=== PATIENT | female | born 1955 | race Caucasian/White ===

== ENCOUNTER 2022-12-28 08:23 | Outpatient (OUT) | payer MEDICARE, OTHER, SELFPAY ==
--- NOTE | 2022-12-28 08:51 | MM_ITS ---
Patient: DARIEN HOWARD Exam Date: 12/28/2022 : 1955 Gender:F Ordering : DR Sneha Esqueda M.D. Admission #: [id number] Family : Order #: [id number] CLICK HERE TO VIEW EXAM RADIOLOGY REPORT PROCEDURE: MM TOMOSYNTHESIS SCREENING BI COMPARISON: MG MAMM SCREEN 3D JHONNY CAD, 12/09/2021. MG MAMM SCREEN 3D JHONNY CAD, 11/29/2020. MG MAMM SCREEN JHONNY W CAD, 11/14/2019. MG MAMM JHONNY SCRN W CAD DIG, 06/10/2013. INDICATIONS: Screening Calculator Name NCI Breast Cancer Risk Assessment Tool 5 Year Breast Cancer Risk 1.20% Lifetime Breast Cancer Risk 3.90% Personal Breast Cancer No Personal Ovarian Cancer No Treatments None Family Cancers Aunt-maternal with breast cancer at age ~55; Aunt-maternal with breast cancer at age ~75. LOCATION: [facility] BREAST COMPOSITION: Heterogeneously dense,which may obscure small masses. FINDINGS: DIAGNOSTIC CATEGORY 2--BENIGN FINDING: RIGHT BREAST: No significant suspicious finding. Scattered benign-appearing calcifications are present. No significant change has occurred. LEFT BREAST: No significant suspicious finding. Scattered benign-appearing calcifications are present. No significant change has occurred. RECOMMENDATIONS: ROUTINE MAMMOGRAM AND CLINICAL EVALUATION IN 12 MONTHS. PLEASE NOTE: A NORMAL MAMMOGRAM DOES NOT EXCLUDE THE POSSIBILITY OF BREAST CANCER. A CLINICALLY SUSPICIOUS PALPABLE LUMP SHOULD BE BIOPSIED. Dictated by: Govind Talbert M.D. on 12/28/2022 at 14:27 Approved by: Govind Talbert M.D. on 12/28/2022 at 14:29
[2022-12-28 09:03] LABS: Basophils Percent Auto 0.6 % (0.2-2.0); Eosinophils Absolute Auto 0.3 10^3/uL (0.0-0.7); Eosinophils Percent Auto 7.2 % (0.9-7.0); Hematocrit 43.6 % (36.0-48.0); Hemoglobin 14.4 g/dL (12.0-16.0); Lymphocytes Absolute Auto 1.3 10^3/uL (1.2-3.8); Lymphocytes Percent Auto 36.5 % (20.5-60.0); Mean Corpuscular Hemoglobin 31.6 pg (26.7-34.0); Mean Corpuscular Volume 95.6 fL (81.0-99.0); Monocytes Absolute Auto 0.3 10^3/uL (0.3-0.8); Monocytes Percent Auto 8.3 % (1.7-12.0); Neutrophils Absolute Auto 1.7 10^3/uL (1.4-6.5); Neutrophils Percent Auto 47.4 % (43.0-75.0); Platelet Count 173 10^3/uL (150-450); Red Blood Count 4.56 10^6/uL (4.20-5.40); Red Cell Distribution Width 12.5 % (11.0-15.0); White Blood Count 3.5 10^3/uL (4.0-11.0)
[2022-12-28 09:07] LABS: Estimated Average Glucose 103 mg/dL; Glycohemoglobin A1C 5.2 % (4.5-6.2)
[2022-12-28 09:18] LABS: Alanine Aminotransferase 39 U/L (14-59); Albumin Globulin Ratio 1.2; Albumin Level 3.8 g/dL (3.4-5.0); Alkaline Phosphatase 47 U/L (46-116); Anion Gap 12.1; Aspartate Amino Transferase 23 U/L (15-37); BUN Creatinine Ratio 29.3; Calcium 9.1 mg/dL (8.5-10.1); Carbon Dioxide 29.2 mmol/L (21.0-32.0); Chloride 102 mmol/L (98-107); Cholesterol 204 mg/dL (<=200); Estimated GFR (African America >60 (>=60); Estimated GFR (Non-African Ame >60 (>=60); Globulin 3.2 g/dL; Glucose 97 mg/dL (74-106); HDL Cholesterol 101 mg/dL (40-60); Potassium 4.3 mmol/L (3.5-5.1); Sodium 139 mmol/L (136-145); Thyroid Stimulating Hormone 1.362 uIU/mL (0.358-3.740); Triglycerides 31 mg/dL (<=150); VLDL CHOLESTEROL 6.2 mg/dL
== END 2022-12-28 08:24 | disposition home or self-care (01) ==
LOC: MAMMO 08:30
PROVIDERS: PCP Family Medicine; Visit Provider Family Medicine
DX: Z00.00 Encounter for general adult medical examination without abnormal findings (principal); Z12.31 Encounter for screening mammogram for malignant neoplasm of breast; I10 Essential (primary) hypertension; E03.8 Other specified hypothyroidism; D72.819 Decreased white blood cell count, unspecified; Z80.3 Family history of malignant neoplasm of breast
CPT/HCPCS: 36415; 77063; 77067; 80053; 80061; 83036; 84443; 85025

== ENCOUNTER 2023-09-25 11:32 | Outpatient (OUT) | payer MEDICARE, OTHER, SELFPAY ==
--- NOTE | 2023-09-25 | CONS_ITS ---
PROCEDURE DATE: 09/25/2023 PROCEDURE: Right first MC joint injection. 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 SOLUTION USED FOR INJECTION: 2 mL of 2% lidocaine, 2 mL of 0.25% Marcaine and Kenalog 20 mg in total of 5 mL, and 2 mL used for the injection into the joint space. IMMEDIATE COMPLICATION: None. PROCEDURE: After informed consent was obtained from the patient, placed in the sitting position, skin overlying the area was prepped with alcohol. A 25 gauge, 1 ?? needle was inserted over the right first MC joint. Needle tip was advanced until the joint space was encountered. No indication of intravascular or intraneural needle tip placement. 2 mL of solution was injected. Needle was removed. Patient reports a dramatic reduction in pain symptoms post procedurally. She reports that she can now open up a bottle of water without difficulty. ROYAL
== END 2023-09-25 11:33 | disposition home or self-care (01) ==
LOC: PM 11:32
PROVIDERS: PCP Family Medicine; Visit Provider Anesthesiology Pain Medicine
DX: M19.031 Primary osteoarthritis, right wrist (principal)
CPT/HCPCS: 20600

== ENCOUNTER 2024-01-01 06:37 | Outpatient (OUT) | payer MEDICARE, OTHER, SELFPAY ==
--- OUTSIDE RECORDS SUMMARY | 2024-01-01 06:39 | XMS_ITS | CCD ---
Author Organization [facility] Care Team Providers Care Drafter Refrigeration Name Role Phone COY, DR SNEHA Soto Admitting Unavailable COY, DR SNEHA Soto Attending Unavailable COY, DR SNEHA Soto Primary Care Unavailable MORE, DR GOVIND Coleman Consulting Unavailable ESQUEDA, DR SNEHA Soto Consulting Unavailable STOCKTON ., DR JAZZMINE Fleming Admitting Unavailable STOCKTON ., DR JAZZMINE Fleming Attending Unavailable COY, DR SNEHA Soto Primary Care Unavailable STOCKTON ., DR JAZZMINE Felming Consulting Unavailable LAKSHMIPATHY ., NARNELIDA Admitting Brandie vailable LAKSHMIPATHY ., GURINDER Attending Brandie varosamaria ESQUEDA, DR SNEHA Soto Primary Care Unavailable LAKSHMIPATHY ., GURINDER Consulting Brandie vailable COY, DR SNEHA Soto Admitting Unavailable ESQUEDA, DR SNEHA Soto Attending Unavailable COY, DR SNEHA Soto Primary Care Unavailable COY, DR SNEHA Soto Consulting Unavailable COY, DR SNEHA Soto Admitting Unavailable ESQUEDA, DR SNEHA Soto Attending Unavailable ESQUEDA, DR SNEHA Soto Primary Care Unavailable COY, DR SNEHA Soto Consulting Unavailable Coy, Sneha Unavailable Allergies Allergy Classification Reported Allergen(s) Allergy Type Date of Onset Reaction(s) Facility (5 sources) Alendronate Drug Allergy Unknown Perpetu Other Medications Current Medications Medication Drug Class(es) Dates Sig (Normalized) Sig (Original) amLODIPine 5 mg / benazepril hydrochloride 10 mg oral capsule (6 sources) Dihydropyridine Calcium Channel Patrizia, Angiotensin Converting Enzyme Inhibitor Start: 07-25-2023 take 1 capsule by mouth once daily Amlodipine-Benaz epril Active 1 CAP PO Daily July 25, 2023 12:00am Start: 12-30-2021 take 1 capsule by [facility] every twenty-four hours amLODIPine Besy-Benazepril HCl 5-10 MG 1 capsule Orally daily for 90 days Dec, Active amLODIPine Besy-Benazepril HCl 5-10MG (2 sources) Start: 12-30-2021 take 5-10 mg by mouth once daily amLODIPine Besy-Benazepril HCl 5-10MG amLODIPine Besy-Benazepril HCl 5-10MG, 1 (one) Capsule daily # 90, 12/30/2021, Ref. x3. Active Oral daily for 0 *Pick strength-form from [employer] for eRX* Dec, Active Calcium (5 sources) Phosphate Binder, Calcium Start: 07-09-2014 Calcium 600 600MG Calcium 600 600MG, # 0.00, 07/09/2014, No Refill. Active for 0 *Pick strength-form from [employer] for eRX* Jul, Active Estriol-Estradiol (5 sources) Estriol-Estradio l Active Multivitamins (5 sources) Start: 07-09-2014 Multivitamins Multivitamins , # 0.00, 07/09/2014, No Refill. Active for 0 *Reorder from [employer] for eRx and Interaction Alerts* Jul, Active VITAMIN D CALCIUM - this medication is not being screened (5 sources) Start: 07-09-2014 VITAMIN D CALCIUM - this medication is not being screened VITAMIN D CALCIUM - this medication is not being screened( ) Active -Hx Entry for 0 *Reorder from [employer] for eRx and Interaction Alerts* Jul, Active Problems Active Problems Problem Classification Problem Date Documented Date Episodic/Chronic Diseases of white blood cells (13 sources) Decreased white blood cell count, unspecified; Translations: [Leukopenia] Onset: 03-17-2022 Chronic Essential hypertension (16 sources) Essential (primary) hypertension; Translations: [Essential hypertension] Onset: 01-03-2022 Chronic Osteoarthritis (4 sources) Primary osteoarthritis, right hand; Translations: [PRIMARY OSTEOARTHRITIS RIGHT HAND] Onset: 08-24-2022 Chronic Other endocrine disorders (8 sources) Disorder of endocrine system; Translations: [Endocrine disorder, unspecified] 07-25-2023 Episodic Other nervous system disorders (4 sources) Other specified mononeuropathies; Translations: [OTHER SPECIFIED MONONEUROPATHIES] Onset: 02-07-2022 Chronic Other nervous system disorders (1 source) Carpal tunnel syndrome, unspecified upper limb; Translations: [CARPAL TUNNEL SYND UNS UPPER LIMB] Onset: 02-09-2022 Chronic Other screening for suspected conditions (not mental disorders or infectious disease) (5 sources) Encounter for screening mammogram for malignant neoplasm of breast; Translations: [Encounter for screening for malignant neoplasm of colon] Onset: 12-09-2021 Episodic Other upper respiratory disease (5 sources) Congestion of nasal sinus; Translations: [Nasal congestion] Episodic Other upper respiratory infections (2 sources) Viral upper respiratory tract infection; Translations: [Acute upper respiratory infection, unspecified] 10-06-2023 Episodic Thyroid disorders (10 sources) Other specified hypothyroidism; Translations: [Hypothyroidism] Onset: 03-20-2022 Chronic Past or Other Problems Problem Classification Problem Date Documented Da te Episodic/Chronic Other endocrine disorders (1 source) Endocrine disorder, unspecified; Translations: [ENDOCRINE DISORDER UNSPECIFIED] Onset: 03-20-2022 Episodic Residual codes; unclassified (1 source) Family history of malignant neoplasm of breast; Translations: [FAMILY HX MALIG NEOPLASM OF BREAST] Onset: 12-12-2021 Episodic Results Test Name Value Interpretation Reference Range Facility Physician Referralon 024 Physician Referral [id number] 1 [id number] Normal [facility] ESTRONEon 03-22-2022 Estrone, Serum <6 Normal 0-125 [facility] Comment on above: Result Comment: Rang e Adult (Premenopausal) 27 - 231 Menstrual Cycle (1-10 days) 19 - 149 Menstrual Cycle (11-20 days) 32 - 176 Menstrual Cycle (21-30 days) 37 - 200 Adult (Postmenopausal) 0 - 125 Performed By: #### E STRONE #### [facility] [address] [place] [address] Dr. Josse Gant TESTOSTERONE, FREE,DIRECT, T OTALon 03-22-2022 Free Testosterone(Direct) 0.5 pg/mL Normal 0.0-4.2 [facility] Comment on above: Result Comment: Perf ormed at: BN Performed By: #### T ESTFRD #### [facility] [address] [address] [address] Josse Gant Testosterone [Mass/Vol] 60 ng/dL Normal 3-67 [facility] Comment on above: Result Comment: Perf ormed at: CB Performed By: #### T ESTFRD #### [facility] [address] [place] [address] Dr. Josse Gant VIT D 1 25 DIHYDROXYon 03-20 Calcitriol(1,25 di-OH Vit D) 55.0 pg/mL Normal 24.8-81.5 [facility] Comment on above: Performed By: #### V [id number] #### [facility] [address] [place] [address] Dr. Josse Gant CORTISOLon 03-18-2022 Cortisol 10.6 ug/dL Normal [facility] Comment on above: Result Comment: Patricio isol AM 6.2 - 19.4 Cortisol PM 2.3 - 11.9 Performed By: #### T SH #### [facility] [address] [place] [address] Dr. Josse Gant DHEA-SULFATEon 03-18-2022 DHEA-Sulfate 32.3 ug/dL Normal 20.4-186.6 [facility] Comment on above: Performed By: #### T SH #### [facility] [address] [place] [address] Dr. Josse Gant ESTRADIOLon 03-18-2022 Estradiol <5.0 Normal [facility] Comment on above: Result Comment: Adul t Female: Follicular phase 12.5 - 166.0 Ovulation phase 85.8 - 498.0 Luteal phase 43.8 - 211.0 Postmenopausal <6.0 - 54.7 1st trimester 215.0 - >4300.0 Kim ECLIA methodology Performed By: #### E STRADI #### [facility] [address] [place] [address] Dr. Josse Gant PROGESTERONEon 03-18-2022 Progesterone 0.3 ng/mL Normal [facility] Comment on above: Result Comment: Foll icular phase 0.1 - 0.9 Luteal phase 1.8 - 23.9 Ovulation phase 0.1 - 12.0 First trimester 11.0 - 44.3 Second trimester 25.4 - 83.3 Third trimester 58.7 - 214.0 Postmenopausal 0.0 - 0.1 Performed By: #### T SH #### [facility] [address] [place] [address] Dr. Josse Gant SEX HORMONE-BINDING GLOBULIN on 03-18-2022 Sex Horm Binding Glob, Serum 107.0 nmol/L Normal 17.3-125.0 [facility] Comment on above: Performed By: #### S EXHBG #### [facility] [address] [place] [address] Dr. Josse Gant CBC AUTO DIFFon 03-17-2022 BASO # 0.0 103/ul Normal 0.0-0.1 [facility] Comment on above: Performed By: #### C BC #### [facility] [address] [place] [address] Dr. Josse Gant Basophils/100 WBC (Bld) 0.5 % Normal 0.2-2.0 [facility] Comment on above: Performed By: #### C BC #### [facility] [address] [place] [address] Dr. Josse Gant EO # 0.2 103/ul Normal 0.0-0.7 [facility] Comment on above: Performed By: #### C BC #### [facility] [address] [place] [address] Dr. Josse Gant Eosinophils/100 WBC (Bld) 5.7 % Normal 0.9-7.0 [facility] Comment on above: Performed By: #### C BC #### [facility] [address] [place] [address] Dr. Josse Gant Erythrocyte distribution width (RBC) [Ratio] 12.7 % Normal 11.0-15.0 [facility] Comment on above: Performed By: #### C BC #### [facility] [address] [place] [address] Dr. Josse Gnat Hematocrit (Bld) [Volume fraction] 44.7 % Normal 36.0-48.0 [facility] Comment on above: Performed By: #### C BC #### [facility] [address] [place] [address] Dr. Josse Gant Hemoglobin (Bld) [Mass/Vol] 15.0 g/dL Normal 12.0-16.0 [facility] Comment on above: Performed By: #### C BC #### [facility] [address] [place] [address] Dr. Josse Gant IG # 0.00 10e3/ul Normal 0.00-0.03 [facility] Comment on above: Performed By: #### C BC #### [facility] [address] [place] [address] Dr. Josse Gant IG % 0.0 % Normal 0.0-0.5 [facility] Comment on above: Performed By: #### C BC #### [facility] [address] [place] [address] Dr. Josse Gant LYMPH # 1.1 103/ul Critically low 1.2-3.8 [facility] Comment on above: Performed By: #### C BC #### [facility] [address] [place] [address] Dr. Josse Gant Lymphocytes/100 WBC (Bld) 28.4 % Normal 20.5-60.0 [facility] Comment on above: Performed By: #### C BC #### [facility] [address] [place] [address] Dr. Josse Gant MANUAL DIFF REQ NO Normal [facility] Comment on above: Performed By: #### C BC #### [facility] [address] [place] [address] Dr. Josse Gant MCH (RBC) [Entitic mass] 31.8 pg Normal 26.7-34.0 [facility] Comment on above: Performed By: #### C BC #### [facility] [address] [place] [address] Dr. Josse Gant MCHC (RBC) [Mass/Vol] 33.6 g/dL Normal 29.9-35.2 [facility] Comment on above: Performed By: #### C BC #### [facility] [address] [place] [address] Dr. Josse Gant MCV (RBC) [Entitic vol] 94.9 fL Normal 81.0-99.0 [facility] Comment on above: Performed By: #### C BC #### [facility] [address] [place] [address] Dr. Josse Gant MONO # 0.3 103/ul Normal 0.3-0.8 [facility] Comment on above: Performed By: #### C BC #### [facility] [address] [place] [address] Dr. Josse Gant Monocytes/100 WBC (Bld) 8.8 % Normal 1.7-12.0 [facility] Comment on above: Performed By: #### C BC #### [facility] [address] [place] [address] Dr. Josse Gant NEUT # 2.2 103/ul Normal 1.4-6.5 [facility] Comment on above: Performed By: #### C BC #### [facility] [address] [place] [address] Dr. Josse Gant Neutrophils/100 WBC (Bld) 56.6 % Normal 43.0-75.0 [facility] Comment on above: Performed By: #### C BC #### [facility] [address] [place] [address] Dr. Josse Gant Platelet mean volume (Bld) [Entitic vol] 9.2 fL Critically low 9.5-13.5 [facility] Comment on above: Performed By: #### C BC #### [facility] [address] [place] [address] Dr. Josse Gant PLT 213 103/ul Normal 150-450 [facility] Comment on above: Performed By: #### C BC #### [facility] [address] [place] [address] Dr. Josse Gant RBC 4.71 106/ul Normal 4.20-5.40 [facility] Comment on above: Performed By: #### C BC #### [facility] [address] [place] [address] Dr. Josse Gant WBC 3.9 103/ul Critically low 4.0-11.0 [facility] Comment on above: Performed By: #### C BC #### [facility] [address] [place] [address] Dr. Josse Gant FREE T4on 03-17-2022 Free T4 [Mass/Vol] 0.90 ng/dL Normal 0.76-1.46 [facility] Comment on above: Performed By: #### T SH #### [facility] [address] [place] [address] Dr. Josse Gant TSHon 03-17-2022 TSH 1.332 uIU/mL Normal 0.358-3.740 [facility] Comment on above: Performed By: #### T SH #### [facility] [address] [place] [address] Dr. Josse Gant CBC AUTO DIFFon 01-03-2022 BASO # 0.0 103/ul Normal 0.0-0.1 [facility] Comment on above: Performed By: #### C BC #### [facility] [address] [place] [address] Dr. Josse Gant Basophils/100 WBC (Bld) 0.8 % Normal 0.2-2.0 [facility] Comment on above: Performed By: #### C BC #### [facility] [address] [place] [address] Dr. Josse Gant EO # 0.3 103/ul Normal 0.0-0.7 [facility] Comment on above: Performed By: #### C BC #### [facility] [address] [place] [address] Dr. Josse Gant Eosinophils/100 WBC (Bld) 7.3 % Critically high 0.9-7.0 [facility] Comment on above: Performed By: #### C BC #### [facility] [address] [place] [address] Dr. Josse Gant Erythrocyte distribution width (RBC) [Ratio] 12.6 % Normal 11.0-15.0 [facility] Comment on above: Performed By: #### C BC #### [facility] [address] [place] [address] Dr. Josse Gant Hematocrit (Bld) [Volume fraction] 45.3 % Normal 36.0-48.0 [facility] Comment on above: Performed By: #### C BC #### [facility] [address] [place] [address] Dr. Josse Gant Hemoglobin (Bld) [Mass/Vol] 14.7 g/dL Normal 12.0-16.0 [facility] Comment on above: Performed By: #### C BC #### [facility] [address] [place] [address] Dr. Josse Gant IG # 0.01 10e3/ul Normal 0.00-0.03 [facility] Comment on above: Performed By: #### C BC #### [facility] [address] [place] [address] Dr. Josse Gant IG % 0.3 % Normal 0.0-0.5 [facility] Comment on above: Performed By: #### C BC #### [facility] [address] [place] [address] Dr. Josse Gant LYMPH # 1.5 103/ul Normal 1.2-3.8 [facility] Comment on above: Performed By: #### C BC #### [facility] [address] [place] [address] Dr. Josse Gant Lymphocytes/100 WBC (Bld) 38.8 % Normal 20.5-60.0 [facility] Comment on above: Performed By: #### C BC #### [facility] [address] [place] [address] Dr. Josse Gant MANUAL DIFF REQ NO Normal [facility] Comment on above: Performed By: #### C BC #### [facility] [address] [place] [address] Dr. Josse Gant MCH (RBC) [Entitic mass] 30.8 pg Normal 26.7-34.0 [facility] Comment on above: Performed By: #### C BC #### [facility] [address] [place] [address] Dr. Josse Gant MCHC (RBC) [Mass/Vol] 32.5 g/dL Normal 29.9-35.2 [facility] Comment on above: Performed By: #### C BC #### [facility] [address] [address] [address] Josse Gant MCV (RBC) [Entitic vol] 95.0 fL Normal 81.0-99.0 [facility] Comment on above: Performed By: #### C BC #### [facility] [address] [address] [address] Josse Gant MONO # 0.4 103/ul Normal 0.3-0.8 [facility] Comment on above: Performed By: #### C BC #### [facility] [address] [place] [address] Dr. Josse Gant Monocytes/100 WBC (Bld) 9.4 % Normal 1.7-12.0 [facility] Comment on above: Performed By: #### C BC #### [facility] [address] [place] [address] Dr. Josse Gant NEUT # 1.7 103/ul Normal 1.4-6.5 [facility] Comment on above: Performed By: #### C BC #### [facility] [address] [place] [address] Dr. Josse Gant Neutrophils/100 WBC (Bld) 43.4 % Normal 43.0-75.0 [facility] Comment on above: Performed By: #### C BC #### [facility] [address] [place] [address] Dr. Josse Gant Platelet mean volume (Bld) [Entitic vol] 9.6 fL Normal 9.5-13.5 [facility] Comment on above: Performed By: #### C BC #### [facility] [address] [place] [address] Dr. Josse Gant PLT 190 103/ul Normal 150-450 [facility] Comment on above: Performed By: #### C BC #### [facility] [address] [place] [address] Dr. Josse Gant RBC 4.77 106/ul Normal 4.20-5.40 [facility] Comment on above: Performed By: #### C BC #### [facility] [address] [address] [address] Josse Gant WBC 3.8 103/ul Critically low 4.0-11.0 [facility] Comment on above: Performed By: #### C BC #### [facility] [address] [address] [address] Josse Gant LIPID PROFILEon 01-03-2022 CHOL-HDL RATIO NORM SEE BELOW Normal [facility] Comment on above: Result Comment: 3.3 - 4.4 LOW RISK 4.4 - 7.1 AVERAGE RISK 7.1 - 11.0 MODERATE RISK >11.0 HIGH RISK Performed By: #### L IPID, CMP #### [facility] [address] [address] [address] Josse Gant Cholesterol [Mass/Vol] 222 mg/dL Critically high <=200 [facility] Comment on above: Performed By: #### L IPID, CMP #### [facility] [address] [address] [address] Josse Gant Cholesterol in HDL [Mass/Vol] 91 mg/dL Critically high 40-60 [facility] Comment on above: Performed By: #### L IPID, CMP #### [facility] [address] [address] [address] Josse Gant Cholesterol in LDL [Mass/Vol] 115.4 mg/dL Normal [facility] Comment on above: Performed By: #### L IPID, CMP #### [facility] [address] [address] [address] Josse Gant Cholesterol.total/Ch olesterol in HDL [Mass ratio] 2.4 {ratio} Normal [facility] Comment on above: Performed By: #### L IPID, CMP #### [facility] [address] [address] [address] Josse Gant HDL NORMAL > or = 60 mg/dl - LO W CARDIOVASCULAR RISK <40 mg/dl - HIGH CARDIOVASCULAR RISK Normal [facility] Comment on above: Performed By: #### L IPID, CMP #### [facility] [address] [address] [address] Josse Gant LDL CALC NORMAL SEE BELOW Normal [facility] Comment on above: Result Comment: <100 mg/dl OPTIMAL 100 - 129 mg/dl NEAR OR ABOVE OPTIMAL 130 - 159 mg/dl BORDERLINE HIGH 160 - 189 mg/dl HIGH >190 mg/dl VERY HIGH Performed By: #### L IPID, CMP #### [facility] [address] [address] [address] Josse Gant Triglyceride [Mass/Vol] 78 mg/dL Normal <=150 [facility] Comment on above: Performed By: #### L IPID, CMP #### [facility] [address] [address] [address] Josse Gant VLDL CALC 15.6 mg/dL Normal [facility] Comment on above: Performed By: #### L IPID, CMP #### [facility] [address] [place] [address] Dr. Josse Gant PROF 14(COMP METB)on 022 Albumin [Mass/Vol] 3.9 g/dL Normal 3.4-5.0 [facility] Comment on above: Performed By: #### L IPID, CMP #### [facility] [address] [address] [address] Josse Gant Albumin/Globulin [Mass ratio] 1.3 {ratio} Normal [facility] Comment on above: Performed By: #### L IPID, CMP #### [facility] [address] [address] [address] oJsse Gant ALP [Catalytic activity/Vol] 53 U/L Normal 46-116 [facility] Comment on above: Performed By: #### L IPID, CMP #### [facility] [address] [address] [address] Josse Gant ALT [Catalytic activity/Vol] 39 U/L Normal 14-59 [facility] Comment on above: Performed By: #### L IPID, CMP #### [facility] [address] [address] [address] Josse Gant Anion gap [Moles/Vol] 11.2 mmol/L Normal [facility] Comment on above: Performed By: #### L IPID, CMP #### [facility] [address] [address] [address] Josse Gant AST [Catalytic activity/Vol] 24 U/L Normal 15-37 [facility] Comment on above: Performed By: #### L IPID, CMP #### [facility] [address] [place] [address] Dr. Josse Gant Bilirubin [Mass/Vol] 0.9 mg/dL Normal 0.2-1.0 [facility] Comment on above: Performed By: #### L IPID, CMP #### [facility] [address] [place] [address] Dr. Josse Gant Calcium [Mass/Vol] 8.8 mg/dL Normal 8.5-10.1 [facility] Comment on above: Performed By: #### L IPID, CMP #### [facility] [address] [place] [address] Dr. Josse Gant Chloride [Moles/Vol] 102 mmol/L Normal 98-107 [facility] Comment on above: Performed By: #### L IPID, CMP #### [facility] [address] [place] [address] Dr. Josse Gant CO2 [Moles/Vol] 32.4 mmol/L Critically high 21.0-32.0 [facility] Comment on above: Performed By: #### L IPID, CMP #### [facility] [address] [place] [address] Dr. Josse Gant Creatinine [Mass/Vol] 0.83 mg/dL Normal 0.55-1.02 [facility] Comment on above: Performed By: #### L IPID, CMP #### [facility] [address] [place] [address] Dr. Josse Gant EGFR-AF MOSOTHO >60 Normal >=60 [facility] Comment on above: Performed By: #### L IPID, CMP #### [facility] [address] [place] [address] Dr. Josse Gant EGFR-NON AF MOSOTHO >60 Normal >=60 [facility] Comment on above: Performed By: #### L IPID, CMP #### [facility] [address] [address] [address] Josse Gant Globulin (S) [Mass/Vol] 3.1 g/dL Normal [facility] Comment on above: Performed By: #### L IPID, CMP #### [facility] [address] [address] [address] Josse Gant Glucose [Mass/Vol] 103 mg/dL Normal 74-106 [facility] Comment on above: Performed By: #### L IPID, CMP #### [facility] [address] [place] [address] Dr. Josse Gant Potassium [Moles/Vol] 4.6 mmol/L Normal 3.5-5.1 [facility] Comment on above: Performed By: #### L IPID, CMP #### [facility] [address] [place] [address] Dr. Josse Gant Protein [Mass/Vol] 7.0 g/dL Normal 6.4-8.2 [facility] Comment on above: Performed By: #### L IPID, CMP #### [facility] [address] [place] [address] Dr. Josse Gant Sodium [Moles/Vol] 141 mmol/L Normal 136-145 [facility] Comment on above: Performed By: #### L IPID, CMP #### [facility] [address] [place] [address] Dr. Josse Gant Urea nitrogen [Mass/Vol] 22.0 mg/dL Critically high 7.0-18.0 [facility] Comment on above: Performed By: #### L IPID, CMP #### [facility] [address] [place] [address] Dr. Josse Gant Urea nitrogen/Creatinine [Mass ratio] 26.5 mg/mg Normal [facility] Comment on above: Performed By: #### L IPID, CMP #### [facility] [address] [place] [address] Dr. Josse Gant MG MAMM SCREEN 3D JHONNY CADon 08-05-2022 MG MAMM SCREEN 3D JHONNY CAD Patient: KORTNEY SALAZAR Exam Date: 12/09/2021 : 1955 Gender:F Ordering : DR SNEHA ESQUEDA M.D. Admission #: [id number] Family : Order #: [id number] CLICK HERE TO VIEW EXAM RADIOLOGY REPORT PROCEDURE: MAMMOGRAM SCREENING 3D BILATERAL CAD COMPARISON: MG MAMM SCREEN 3D JHONNY CAD, 11/29/2020. MG MAMM SCREEN JHONNY W CAD, 11/14/2019. INDICATIONS: Screening mammography Calculator Name NCI Breast Cancer Risk Assessment Tool 5 Year Breast Cancer Risk 1.20% Lifetime Breast Cancer Risk 4.00% Personal Breast Cancer No Personal Ovarian Cancer No Treatments None Family Cancers Aunt-maternal with breast cancer at age 55; Aunt-maternal with breast cancer at age 75. LOCATION: [facility] BREAST COMPOSITION: Heterogeneously dense,which may obscure small masses. FINDINGS: DIAGNOSTIC CATEGORY 2--BENIGN FINDING: RIGHT BREAST: No significant suspicious finding. Scattered benign-appearing calcifications are present. No significant change has occurred. LEFT BREAST: No significant suspicious finding. Scattered benign-appearing calcifications are present. No significant change has occurred. RECOMMENDATIONS: ROUTINE MAMMOGRAM AND CLINICAL EVALUATION IN 12 MONTHS. PLEASE NOTE: A NORMAL MAMMOGRAM DOES NOT EXCLUDE THE POSSIBILITY OF BREAST CANCER. A CLINICALLY SUSPICIOUS PALPABLE LUMP SHOULD BE BIOPSIED. Dictated by: Govind Talbert M.D. on 12/09/2021 at 12:55 Approved by: Govind Talbert M.D. on 12/09/2021 at 12:57 Normal [facility] CBC Without Differentialon 0 11-20-2020 Erythrocyte distribution width (RBC) [Ratio] 13.7 % Normal 11.9-15.3 [facility] Comment on above: Performed By: #### O UTREACH LIPID, OUTREACH CMP, CBCNOOUTREACH #### [facility] [address] [place] [address] [facility] Hematocrit (Bld) [Volume fraction] 43.6 % Normal 34.0-46.4 [facility] Comment on above: Performed By: #### O UTREACH LIPID, OUTREACH CMP, CBCNOOUTREACH #### [address] Hemoglobin (Bld) [Mass/Vol] 14.4 g/dL Normal 11.8-15.4 [facility] Comment on above: Performed By: #### O UTREACH LIPID, OUTREACH CMP, CBCNOOUTREACH #### [address] MCH (RBC) [Entitic mass] 31.5 pg Normal 24.7-34.3 [facility] Comment on above: Performed By: #### O UTREACH LIPID, OUTREACH CMP, CBCNOOUTREACH #### [address] MCV (RBC) [Entitic vol] 95.0 fL Normal 80-100 [facility] Comment on above: Performed By: #### O UTREACH LIPID, OUTREACH CMP, CBCNOOUTREACH #### [address] Mean Corpuscular HGB Conc 33.2 g/dL Normal 32.0-35.0 [facility] Comment on above: Performed By: #### O UTREACH LIPID, OUTREACH CMP, CBCNOOUTREACH #### [address] Platelet mean volume (Bld) [Entitic vol] 9.3 fL Normal 6.3-10.7 [facility] Comment on above: Result Comment: PERF ORMED BY: [place] [address] PATHOLOGIST [employer] RUIZ WEI M.D. Performed By: #### O UTREACH LIPID, OUTREACH CMP, CBCNOOUTREACH #### [address] Platelets (Bld) [#/Vol] 187 10*3/uL Normal 150-450 [facility] Comment on above: Performed By: #### O UTREACH LIPID, OUTREACH CMP, CBCNOOUTREACH #### [address] RBC (Bld) [#/Vol] 4.58 10*6/uL Normal 3.60-5.00 [facility] Comment on above: Performed By: #### O UTREACH LIPID, OUTREACH CMP, CBCNOOUTREACH #### [address] WBC (Bld) [#/Vol] 3.8 10*3/uL Normal 3.8-11.6 [facility] Comment on above: Performed By: #### O UTREACH LIPID, OUTREACH CMP, CBCNOOUTREACH #### [address] CMP Outreachon 11-20-2020 Albumin [Mass/Vol] 4.1 g/dL Normal 3.2-5.5 [facility] Comment on above: Performed By: #### O UTREACH LIPID, OUTREACH CMP, CBCNOOUTREACH #### [address] ALP [Catalytic activity/Vol] 37 U/L Normal 32-92 [facility] Comment on above: Performed By: #### O UTREACH LIPID, OUTREACH CMP, CBCNOOUTREACH #### [address] ALT [Catalytic activity/Vol] 27 U/L Normal 10-60 [facility] Comment on above: Performed By: #### O UTREACH LIPID, OUTREACH CMP, CBCNOOUTREACH #### [address] AST [Catalytic activity/Vol] 30 U/L Normal 10-42 [facility] Comment on above: Performed By: #### O UTREACH LIPID, OUTREACH CMP, CBCNOOUTREACH #### [address] Bilirubin [Mass/Vol] 1.4 mg/dL High 0.3-1.2 [facility] Comment on above: Result Comment: Samp les from patients who have taken Naproxen have shown spurious elevation in Total Bilirubin levels. A metabolite of Naproxen, O-desmethylnaproxen, has been shown to interfere with the Jendrassik-Grof method for measuring Total Bilirubin. Performed By: #### O UTREACH LIPID, OUTREACH CMP, CBCNOOUTREACH #### [facility] [address] Calcium [Mass/Vol] 9.4 mg/dL Normal 8.2-10.2 [facility] Comment on above: Performed By: #### O UTREACH LIPID, OUTREACH CMP, CBCNOOUTREACH #### [address] Chloride [Moles/Vol] 101 mmol/L Normal 95-114 [facility] Comment on above: Performed By: #### O UTREACH LIPID, OUTREACH CMP, CBCNOOUTREACH #### [address] CO2 [Moles/Vol] 28.0 mmol/L Normal 22.0-30.0 [facility] Comment on above: Performed By: #### O UTREACH LIPID, OUTREACH CMP, CBCNOOUTREACH #### [address] Creatinine [Mass/Vol] 0.85 mg/dL Normal 0.44-1.03 [facility] Comment on above: Performed By: #### O UTREACH LIPID, OUTREACH CMP, CBCNOOUTREACH #### [address] Estimated GFR ( Cristy > 60 [facility] Comment on above: Result Comment: GFR estimated reference range: According to KDOQI guidelines, <60 ml/min/1.73m2 is sufficient to diagnose a patient with chronic kidney disease. Performed By: #### O UTREACH LIPID, OUTREACH CMP, CBCNOOUTREACH #### [place] [address] [place] Estimated GFR (Non- Am > 60 [facility] Comment on above: Performed By: #### O UTREACH LIPID, OUTREACH CMP, CBCNOOUTREACH #### [place] [address] [place] Glucose [Mass/Vol] 92 mg/dL Normal 70-100 [facility] Comment on above: Result Comment: [facility] Glucose Reference Range is dependent on time and content of last meal. Glucose of more than 200 mg/dL in a nonstressed, ambulatory subject supports the diagnosis of Diabetes Mellitus. ADA recommended reference range Performed By: #### O UTREACH LIPID, OUTREACH CMP, CBCNOOUTREACH #### [facility] [address] [phone] [place] Potassium [Moles/Vol] 4.1 mmol/L Normal 3.5-5.1 [facility] Comment on above: Performed By: #### O UTREACH LIPID, OUTREACH CMP, CBCNOOUTREACH #### [facility] [address] [phone] [place] Protein [Mass/Vol] 6.6 g/dL Normal 6.1-7.9 [facility] Comment on above: Performed By: #### O UTREACH LIPID, OUTREACH CMP, CBCNOOUTREACH #### [facility] [address] [phone] [place] Sodium [Moles/Vol] 137 mmol/L Normal 136-146 [facility] Comment on above: Performed By: #### O UTREACH LIPID, OUTREACH CMP, CBCNOOUTREACH #### [facility] [address] [place], [place] [id number] [place] Urea nitrogen [Mass/Vol] 25 mg/dL High 9-23 [facility] Comment on above: Performed By: #### O UTREACH LIPID, OUTREACH CMP, CBCNOOUTREACH #### [facility] [address] [phone] [place] Lipid Profile Outreachon Cholesterol [Mass/Vol] 254 mg/dL High 140-200 [facility] Comment on above: Result Comment: Chol less than 200 mg/dl low risk Chol 201-239 mg/dl borderline risk Chol 240 mg/dl and greater high risk Performed By: #### O UTREACH LIPID, OUTREACH CMP, CBCNOOUTREACH #### [facility] [address] [phone] [place] Cholesterol in HDL [Mass/Vol] 94 mg/dL High 35-85 [facility] Comment on above: Result Comment: HDL CHOL ATP-III CLASSIFICATION Cardiovascular Risk HDL > or equal to 60 mg/dL LOW HDL < 40 mg/dL HIGH Performed By: #### O UTREACH LIPID, OUTREACH CMP, CBCNOOUTREACH #### [facility] [address] Cholesterol.total/Ch olesterol in HDL [Mass ratio] 2.7 {ratio} Normal <5.0 [facility] Comment on above: Result Comment: PERF ORMED BY: [place] [address] PATHOLOGIST [employer] RUIZ WEI M.D. Performed By: #### O UTREACH LIPID, OUTREACH CMP, CBCNOOUTREACH #### [address] LDL Cholesterol,Calculat ed 150 mg/dL High 0-100 [facility] Comment on above: Result Comment: LDL ATP III CLASSIFICATION LDL less than 100 mg/dL Optimal LDL 100-129 mg/dL Near or above optimal LDL 130-159 mg/dL Borderline high LDL 160-189 mg/dL High LDL greater than 189 mg/dL Very high Performed By: #### O UTREACH LIPID, OUTREACH CMP, CBCNOOUTREACH #### [address] Triglyceride w/Reflex 48 mg/dL Normal 35-149 [facility] Comment on above: Result Comment: TRIG ATP III CLASSIFICATION TRIG less than 150 mg/dL Normal TRIG 150-199 mg/dL Borderline high TRIG 200-500 mg/dL High TRIG greater than 500 mg/dL Very high Standard traceable to the Center for Disease Conrtrol and Prevention (CDC) test method. Performed By: #### O UTREACH LIPID, OUTREACH CMP, CBCNOOUTREACH #### [facility] [address] VLDL CHOLESTEROL 9 mg/dL Normal [facility] Comment on above: Performed By: #### O UTREACH LIPID, OUTREACH CMP, CBCNOOUTREACH #### [facility] [address] [place], [place] [id number] [facility] Vital Signs Date Time Vital Sign Value Performing Clinician Facility 10-10-2023 08:43-0400 Body height 170.18 cm [facility] 10-10-2023 08:43-0400 Body mass index (BMI) [Ratio] 18 kg/m2 [facility] 10-10-2023 08:43-0400 Body temperature 98.2 [degF] [facility] 10-10-2023 08:43-0400 Body weight 52.16 kg [facility] 10-10-2023 08:43-0400 Diastolic blood pressure 80 mm[Hg] [facility] 10-10-2023 08:43-0400 Heart rate 80 /min [facility] 10-10-2023 08:43-0400 Systolic blood pressure 127 mm[Hg] [facility] 10-06-2023 09:54-0400 Body height 170.18 cm [facility] 10-06-2023 09:54-0400 Body mass index (BMI) [Ratio] 18.2 kg/m2 [facility] 10-06-2023 09:54-0400 Body temperature 98.3 [degF] [facility] 10-06-2023 09:54-0400 Body weight 52.78 kg [facility] 10-06-2023 09:54-0400 Diastolic blood pressure 81 mm[Hg] [facility] 10-06-2023 09:54-0400 Heart rate 83 /min [facility] 10-06-2023 09:54-0400 Respiratory rate 16 /min [facility] 10-06-2023 09:54-0400 SaO2% (BldA) [Mass fraction] 96 % [facility] 10-06-2023 09:54-0400 Systolic blood pressure 130 mm[Hg] [facility] 07-25-2023 09:08-0400 Body height 170.18 cm [facility] 07-25-2023 09:08-0400 Body mass index (BMI) [Ratio] 18.3 kg/m2 [facility] 07-25-2023 09:08-0400 Body weight 53.12 kg [facility] 07-25-2023 09:08-0400 Diastolic blood pressure 84 mm[Hg] [facility] 07-25-2023 09:08-0400 Heart rate 69 /min [facility] 07-25-2023 09:08-0400 Systolic blood pressure 132 mm[Hg] [facility] 01-02-2023 10:00-0400 Body height 170.18 cm Sneha Esqueda Other [facility] Other 01-02-2023 10:00-0400 Body mass index (BMI) [Ratio] 18.17 kg/m2 Sneha Esqueda Other [facility] Other 01-02-2023 10:00-0400 Body weight 52.62 kg Sneha Esqueda Other [facility] Other 01-02-2023 10:00-0400 Diastolic blood pressure 78 mm[Hg] Sneha Esqueda Other [facility] Other 01-02-2023 10:00-0400 Systolic blood pressure 127 mm[Hg] Sneha Esqueda Other [facility] Other Encounters Encounter Date Encounter Type Care Provider Facility Start: 10-10-2023 End: 10-10-2023 ambulatory [facility] Work Phone: Start: 10-10-2023 End: 10-10-2023 Patient encounter procedure [facility] Work Phone: Start: 10-06-2023 End: 10-06-2023 ambulatory [facility] Work Phone: Start: 10-06-2023 End: 10-06-2023 Patient encounter procedure [facility] Work Phone: Start: 07-25-2023 End: 07-25-2023 ambulatory [facility] Work Phone: Start: 07-25-2023 End: 07-25-2023 Patient encounter [facility] Work Phone: Start: 06-06-2023 End: 06-06-2023 ambulatory Sneha Esqueda Other [facility] Other Start: 06-06-2023 Telephone encounter Sneha Esqueda [facility] Start: 06-05-2023 ambulatory Facility:[facility] Start: 06-04-2023 End: 06-04-2023 ambulatory Sneha Esqueda Other [facility] Other Start: 06-04-2023 Telephone encounter Sneha Esqueda [facility] Start: 01-12-2023 End: 01-12-2023 ambulatory Sneha Esqueda Other [facility] Other Start: 01-12-2023 Encounter by compute r link Sneha Esqueda [facility] Start: 01-02-2023 End: 01-02-2023 ambulatory Sneha Esqueda Other [facility] Other Start: 01-02-2023 Patient encounter procedure Sneha Esqueda [facility] Start: 12-28-2022 End: 12-28-2022 ambulatory Sneha Esqueda Other [facility] Other Start: 12-28-2022 Telephone encounter Sneha Esqueda [facility] Start: 08-24-2022 End: 08-25-2022 ambulatory GURINDER JONESMIRYAN . Facility:[facility] Start: 03-17-2022 End: 03-18-[address] SNEHA ESQUEDA Facility:[facility] Start: 02-07-2022 End: 02-08-[address] JAZZMINE STOCKTON . Facility:[facility] Start: 01-03-2022 End: 01-04-[address] SNEHA ESQUEDA Facility:[facility] Start: 12-09-2021 End: 12-10-[address] SNEHA ESQUEDA Facility:[facility] Immunizations Immunization Date Immunization Notes Care Provider Fa jane 07-20-2021 Prevnar 20 Sneha Esqueda Other [facility] Payers Date Payer Category Payer Unknown [id number] 1961 Medicare [id number] 1961 Unknown [id number] 1955 Unknown [id number] 2.16.84 [id number] 1955 Unknown [id number] 2.16.84 [id number] 1955 Unknown [id number] 2.16.84 [id number] 1955 Unknown [id number] 2.16.84 [id number] 1955 Unknown [id number] 2.16.84 [id number] 1955 Unknown [id number] 2.16.8 [id number] Self-pay Self Pay [id number] Social History Date Type Detail Facility Unknown if ever smoked [facility] Other Sex Assigned At Sex Assigned At Bir th [facility] Other Start: 1955 Sex Assigned At Female F [facility] Start: 10-06-2023 Tobacco smoking status NHIS Never smoked tobacco (finding) [facility] Evaluation note 06-04-2023 Note Date & Type Note Facility 06-04-2023 Evaluation note Encounter Date Diagnosis Assessment Notes May, Screening for colon cancer (ICD-10 - Z12.11) [facility] Other Evaluation note 01-02-2023 Note Date & Type Note Facility 01-02-2023 Evaluation note Encounter Date Diagnosis Assessment Notes Dec, Medicare annual wellness visit, subsequent (ICD-10 - Z00.00) Personalized health advice was given to the beneficiary including a written plan for screenings discussed and provided. Advanced care planning reviewed and/or information given as requested. Additional counseling was provided here today in regards to, [ ]. The above visit was performed by [ ], under direct supervision of [ ]. Document reviewed and amended by provider signed below. Dec, Essential (primary) hypertension (ICD-10 - I10) improved - agree w holding med Blood pressure remains well controlled at this time. Denies cardiac symptoms. Shows no signs or symptoms or poor control. Patient to continue with above medication and we will continue to monitor. Advised to pay attention to body and symptoms. Any developing patterns. Stay well hydrated. Dec, Other specified hypothyroidism (ICD-10 - E03.8) Monitor lab work. Dec, Leukopenia, unspecified type (ICD-10 - D72.819) Chronic low WBC, will monitor levels. [facility] Other Consultation note 08-24-2022 Note Date & Type Note Facility 08-24-2022 Note CONSULTATION PROCEDURE DATE: 08/24/2022 TO: Sneha Esqueda M.D. PROCEDURE: Patient presents today for procedure on the right hand for right first MC joint injection. 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 INDICATION: Examination is notable for patient having no clinical radiculopathy or myelopathy involving her upper extremities. No evidence of median nerve entrapment on today's visit or radial nerve involvement on today's visit. Patient did have point tenderness involving the right first MC joint, mainly on the medial aspect. SOLUTION USED FOR INJECTION: 1 mL of 0.25% Marcaine and 40 mg of Depo-Medrol, total of 2 mL and 1 mL was used for the injection. IMMEDIATE COMPLICATIONS: None. PROCEDURE: After informed consent was obtained from the patient, placed in the sitting position. Skin overlying the area was prepped with alcohol. A 25 gauge, 1 1/2 inch needle was inserted over the area of the right first MC joint, on the medial aspect. Needle tip was advanced until the joint space was encountered. No indication of intravascular or intraneural needle tip placement. 1 mL of solution was injected. Patient reports a marked reduction in pain symptoms post procedurally. 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 PROCEDURE: Right middle finger trigger finger tendon scar tissue injection. Subsequent to obtaining informed consent, the patient was placed in the sitting position. Alcohol prep was used to sterilize the site. A 25 gauge needle was advanced and threaded distal to proximal. Negative aspiration. Marcaine 0.125% along with Kenalog 20 mg are injected to the site for a total volume of 1.5 cc. Negative heme. The patient tolerates the procedure well, without any overt complication, will be followed up in the office. [facility] Consultation note 02-07-2022 Note Date & Type Note Facility 02-07-2022 Note CONSULTATION CONSULTATION DATE: 02/07/2022 CHIEF COMPLAINT: Right hand, right middle finger pain, right wrist pain. HISTORY OF PRESENT ILLNESS: This is a very pleasant, 66-year-old female who had a right middle finger trigger finger injection in June of 2021. This has afforded the patient substantial improvement. The patient reports having increased pain. The patient is an avid golfer. She describes it as a stiffness, swollen sensation. Opening jar, using of her hands, dishes, housework, activities, gripping aggravate the patient's pain. The patient takes multivitamins on a regular basis. The patient is a nurse. The patient's PAST MEDICAL HISTORY / SURGICAL HISTORY / REVIEW OF SYSTEMS are noted on the chart, along with the MEDICATION LIST / ALLERGIES and the RADIOLOGICAL IMAGES. PHYSICAL EXAM: Upon physical examination, this is an endomorphically structured female, who does not appear to be in any acute distress. VITAL SIGNS: Stable at 132/86, with a heart rate of 73. At a height of 57 , the patient weighs 52 kg. FOCUSED EVALUATION OF THE RIGHT HAND: The patient has some fullness along the carpal tunnel. Tinel's is negative. Slight contracture of the right middle finger is noted. This has been released in the past. The patient does have decreased interossei muscles; however, this is structural bilaterally. IMPRESSION: Current working diagnosis is right middle finger scar tissue entrapment with tendon inflammation, carpal tunnel. PLAN: We will inject the right middle finger scar tissue in office today. The patient understands and would like to proceed. CC: Sneha Esqueda M.D. [facility] Evaluation note Note Date & Type Note Facility Evaluation note No Information [place] [employer] Other Evaluation note Note Date & Type Note Facility Evaluation note Diagnosis Onset Date Essential (primary) hypertension acute [facility] Work Phone: Evaluation note Note Date & Type Note Facility Evaluation note Diagnosis Onset Date Essential (primary) hypertension acute Viral URI with cough acute [facility] Work Phone: History general Narrative - Reported Note Date & Type Note Facility History general Narrative - Reported Type Medical History Leukopenia, unspecified type Medical History Hormonal disorder Medical History Other specified hypothyroidism Medical History Essential (primary) hypertension Medical History Congestion of nasal sinus Surgical History Appendectomy Surgical History Colonoscopy Surgical History Epicondylectomy Right Surgical History Tonsillectomy and adenoidectomy Surgical History R ring finger trigger release Surgical History R lateral epicondylitis Hospitalization History see surgical hx [facility] Other Summary Purpose Family History Relationship Condition Age at Onset Recorded Date/T rachel father Malignant neoplasm Unknown Leukemia Unknown Unknown grandparent Unknown History of malignant neoplasm of prostate Unknown Malignant neoplasm Unknown Not Specified Unknown Heart disease Unknown History of ovarian cancer Unknown Advance Directives Advance Directive Response Recorded Date/ Time Advance Directives No July 24 024 8:58am Reason for Referral Reason colon cancer screeni ng Diagnosis 1 Screening for colon cancer (Z12.11) Referral Organization [facility] Referring Provider First Name Sneha Referring Provider Last Name Coy Referring Provider Specialty Family [facility] Referred Organization [facility] Referred Provider Jake Martinez Referred Address [address] [place] [id number] Referred Provider Specialty Surgery Referral Priority Routine Chief Complaint and Reason for Visit Chief Complaint BP/ Check Up Reason for Visit Essential (primary) hypertension Chief Complaint BP/ Check Up cough and stuffy nose for3 days Reason for Visit Essential (primary) hypertension Chief Complaint BP/ Check Up cough and stuffy nose for3 days UC follow up, upper raspatory Reason for Visit Essential (primary) hypertension Viral URI with cough Additional Source Comments INFORMATION SOURCE (unrecogn ized section and content) DATE CREATED AUTHOR 05/29/2021 [facility] DATE CREATED AUTHOR AUTHOR'S ORGANIZ ATION 08/29/2022 [facility] DATE CREATED AUTHOR AUTHOR'S OR[facility]IZ ATION [facility] REASON FOR VISIT (unrecogniz ed section and content) [facility] OrdersN ew Refill RequestColonoscopyColonoscopy Care Teams (unrecognized sec tion and content) Team Status: Active Member Role Status Dates Sneha Esqueda MD Primary Care Provider Active Team Status: Inactive Member Role Status Dates Sneha Esqueda MD Primary Care Provide r, Attending Provider Active Start: July 25, 2023 End: July 25, 2023 Team Status: Inactive Member Role Status Dates Sneha Esqueda MD Primary Care Provider Active Start: October 06, 2023 End: October 06, 2023 Ebonie Monreal APRN Attending Provider Active Start: October 06, 2023 End: October 06, 2023 Team Status: Inactive Member Role Status Dates Sneha Esqueda MD Primary Care Provide r, Attending Provider Active Start: October 10, 2023 End: October 10, 2023 Goals (unrecognized section and content) Goals may be documented in a n alternate section FOR RECORDS PERTAINING TO PATIENTS WHO ARE OR HAVE BEEN ENROLLED IN A CHEMICAL DEPENDENCY/SUBSTANCEABUSE PROGRAM, SOME INFORMATION MAY BE OMITTED. This clinical summary was aggregated from multiple sources. Caution should be exercised in using it in the provision of clinical care. This summary normalizes information from multiple sources, and as a consequence, information in this document may materially change the coding, format and clinical context of patient data. In addition, data may be omitted in some cases. CLINICAL DECISIONS SHOULD BE BASED ON THE PRIMARY CLINICAL RECORDS. [employer] [facility]. provides no warranty or guarantee of the accuracy or completeness of information in this document.
[2024-01-01 06:57] LABS: Basophils Percent Auto 0.9 % (0.2-2.0); Eosinophils Absolute Auto 0.4 10^3/uL (0.0-0.7); Eosinophils Percent Auto 10.3 % (0.9-7.0); Hematocrit 44.7 % (36.0-48.0); Hemoglobin 14.8 g/dL (12.0-16.0); Immature Granulocytes Abs Auto 0.01 10^3/uL (0.00-0.03); Immature Granulocytes Pct Auto 0.3 % (0.0-0.5); Lymphocytes Absolute Auto 1.1 10^3/uL (1.2-3.8); Lymphocytes Percent Auto 31.4 % (20.5-60.0); Mean Corpuscular HGB Conc 33.1 g/dL (29.9-35.2); Mean Corpuscular Hemoglobin 32.2 pg (26.7-34.0); Mean Corpuscular Volume 97.2 fL (81.0-99.0); Mean Platelet Volume 9.8 fL (9.5-13.5); Monocytes Absolute Auto 0.3 10^3/uL (0.3-0.8); Neutrophils Absolute Auto 1.7 10^3/uL (1.4-6.5); Neutrophils Percent Auto 49.1 % (43.0-75.0); Platelet Count 183 10^3/uL (150-450); Red Cell Distribution Width 12.7 % (11.0-15.0); White Blood Count 3.5 10^3/uL (4.0-11.0)
[2024-01-01 08:01] LABS: Estimated Average Glucose 103 mg/dL; Glycohemoglobin A1C 5.2 % (4.5-6.2)
[2024-01-01 08:32] LABS: Alanine Aminotransferase 37 U/L (14-59); Albumin Globulin Ratio 1.3; Albumin Level 3.8 g/dL (3.4-5.0); Alkaline Phosphatase 52 U/L (46-116); Anion Gap 9.8; Aspartate Amino Transferase 28 U/L (15-37); BUN Creatinine Ratio 28.7; Calcium 8.8 mg/dL (8.5-10.1); Carbon Dioxide 31.1 mmol/L (21.0-32.0); Chloride 103 mmol/L (98-107); Chol HDL Ratio 2.2; Cholesterol 202 mg/dL (<=200); Estimated GFR (African America >60 (>=60); Estimated GFR (Non-African Ame >60 (>=60); Glucose 93 mg/dL (74-106); HDL Cholesterol 92 mg/dL (40-60); Potassium 3.9 mmol/L (3.5-5.1); Sodium 140 mmol/L (136-145); Thyroid Stimulating Hormone 1.677 uIU/mL (0.358-3.740); Total Protein 6.8 g/dL (6.4-8.2); Triglycerides 47 mg/dL (<=150); VLDL CHOLESTEROL 9.4 mg/dL
--- NOTE | 2024-01-01 08:55 | MM_ITS ---
Patient Name: DARIEN HOWARD MR#: [id number] : 1955 Exam Date: 01/01/2024 Ordering Doctor: DR Sneha Esqueda M.D. RADIOLOGY REPORT PROCEDURE: MM TOMOSYNTHESIS SCREENING BI COMPARISON: MG MAMM SCREEN 3D JHONNY CAD, 12/09/2021. MM TOMOSYNTHESIS SCREENING BI, 12/28/2022. INDICATIONS: Screening Calculator Name NCI Breast Cancer Risk Assessment Tool 5 Year Breast Cancer Risk 1.20% Lifetime Breast Cancer Risk 3.70% Personal Breast Cancer No Personal Ovarian Cancer No Treatments None Family Cancers Aunt-maternal with breast cancer at age ~55; Aunt-maternal with breast cancer at age ~75. LOCATION: [facility] BREAST COMPOSITION: The breasts are heterogeneously dense,which may obscure small masses. FINDINGS: DIAGNOSTIC CATEGORY 2--BENIGN FINDING. NO CHANGE FROM COMPARISON. Scattered benign-appearing calcifications are present. Scattered benign-appearing lymph nodes are present. RIGHT BREAST: No significant suspicious finding. LEFT BREAST: No significant suspicious finding. RECOMMENDATIONS: ROUTINE MAMMOGRAM AND CLINICAL EVALUATION IN 12 MONTHS. PLEASE NOTE: A NORMAL MAMMOGRAM DOES NOT EXCLUDE THE POSSIBILITY OF BREAST CANCER. A CLINICALLY SUSPICIOUS PALPABLE LUMP SHOULD BE BIOPSIED. Dictated by: Shun Saleem MD on 01/01/2024 at 10:10 Approved by: Shun Saleem MD on 01/01/2024 at 10:13
[2024-01-02 04:07] LABS: DHEA-Sulfate 81.6 ug/dL (20.4-186.6); Estradiol 13.6 pg/mL (0.0-54.7); Progesterone 1.4 ng/mL (.); Sex Horm Binding Glob, Serum 93.8 nmol/L (17.3-125.0)
== END 2024-01-01 06:38 | disposition home or self-care (01) ==
LOC: MAMMO 06:37
PROVIDERS: PCP Family Medicine; Visit Provider Family Medicine
DX: Z12.31 Encounter for screening mammogram for malignant neoplasm of breast (principal); D72.819 Decreased white blood cell count, unspecified; I10 Essential (primary) hypertension; E34.9 Endocrine disorder, unspecified; E03.8 Other specified hypothyroidism; Z80.3 Family history of malignant neoplasm of breast
CPT/HCPCS: 36415; 77063; 77067; 80053; 80061; 82306; 82533; 82627; 82670; 82679; 83036; 84144; 84270; 84402; 84403; 84443; 85025

== ENCOUNTER 2024-03-21 09:38 | Outpatient (OUT) | payer MEDICARE, OTHER, SELFPAY ==
--- OUTSIDE RECORDS SUMMARY | 2024-03-21 09:49 | XMS_ITS | CCD ---
Author Organization [facility] Care Team Providers Care Verification Clerk Name Role Phone COY, DR SNEHA Soto Admitting Unavailable COY, DR SNEHA Soto Attending Unavailable COY, DR SNEHA Soto Primary Care Unavailable MORE, DR GOVIND Coleman Consulting Unavailable COY, DR SNEHA Soto Consulting Unavailable STOCKTON ., DR JAZZMINE Fleming Admitting Unavailable STOCKTON ., DR JAZZMINE Fleming Attending Unavailable COY, DR SNEHA Soto Primary Care Unavailable STOCKTON ., DR JAZZMINE Fleming Consulting Unavailable LAKSHMIPATHY ., NARYUEATH Admitting Brandie vailable LAKSHMIPATHOziel ., GURINDER Attending Brandie vailable COY, DR SNEHA Soto Primary Care Unavailable LAKSHMIPATHY ., GURINDER Consulting Brandie vailable COY, DR SNEHA Soto Admitting Unavailable CESPEDES, DR SNEHA Soto Attending Unavailable COY, DR SNEHA Soto Primary Care Unavailable COY, DR SNEHA Soto Consulting Unavailable COY, DR SNEHA Soto Admitting Unavailable CESPEDES, DR SNEHA Soto Attending Unavailable CESPEDES, DR SNEHA Soto Primary Care Unavailable COY, DR SNEHA Soto Consulting Unavailable Sneha Cespedes Unavailable Sneha Cespedes MD Primary Care Provider SOPHIA MENSAH Attending Unavailable Allergies Allergy Classification Reported Allergen(s) Allergy Type Date of Onset Reaction(s) Facility (5 sources) Alendronate Drug Allergy Unknown [facility] Other Medications Current Medications Medication Drug Class(es) Dates Sig (Normalized) Sig (Original) amLODIPine 5 mg / benazepril hydrochloride 10 mg oral capsule (11 sources) Dihydropyridine Calcium Channel Patrizia, Angiotensin Converting Enzyme Inhibitor Start: 01-04-2024 take 1 capsule by mouth once daily Amlodipine-Benaz epril Active 0 .ROUTE .COMPLEX 90 January 04, 2024 9:55pm TAKE 1 CAPSULE BY MOUTH EVERY DAY FOR 90 DAYS Start: 07-25-2023 End: 01-04-2024 take 1 capsule by mouth once daily Amlodipine-Benazepril Discontinued 1 CAP PO Daily July 25, 2023 12:00am January 04, 2024 9:55pm Start: 12-30-2021 take 1 capsule by [facility] every twenty-four hours amLODIPine Besy-Benazepril HCl 5-10 MG 1 capsule Orally daily for 90 days Dec, Active take 1 capsule by [facility] in the morning amLODIPine-benazepril (Lotrel) 5-10 MG capsule Take 1 capsule by mouth in the morning. Active amLODIPine Besy-Benazepril HCl 5-10MG (2 sources) Start: 12-30-2021 take 5-10 mg by mouth once daily amLODIPine Besy-Benazepril HCl 5-10MG amLODIPine Besy-Benazepril HCl 5-10MG, 1 (one) Capsule daily # 90, 12/30/2021, Ref. x3. Active Oral daily for 0 *Pick strength-form from [employer] for eRX* Dec, Active Calcium (8 sources) Phosphate Binder, Calcium Start: 07-09-2014 Calcium 600 600MG Calcium 600 600MG, # 0.00, 07/09/2014, No Refill. Active for 0 *Pick strength-form from [employer] for eRX* Jul, Active calcium 200 MG t ablet 1 (one) time each day at the same time. Active cholecalciferol 0.05 mg oral tablet (3 sources) Vitamin D cholecalciferol (Vitamin D-3) 50 MCG (1999) tablet 1 (one) time each day at the same time. Active Estriol-Estradiol (5 sources) Estriol-Estradio l Active fluocinonide 0.5 mg/ml topical solution (3 sources) Corticosteroid Start: 02-27-2023 fluocinonide (Lidex) 0.05 % external solution Indications: Other seborrheic dermatitis Apply to affected areas on the every day in HS leaving on the scalp, then rinse in AM. 60 mL 11 02/27/2023 Active Mioxbn-Bypipurlg-Hcqchofe-MS M (GLUCOSAMINE CHONDROITIN JOINT PO) (3 sources) Glucos-Chondroit -Hyaluron-M SM (GLUCOSAMINE CHONDROITIN JOINT PO) Orally Active Misc Natural Products (Immune Boost) capsule (2 sources) Start: 01-28-2023 Misc Natural Products (Immune Boost) capsule 01/28/2023 Active Multiple Vitamin (MULTI VITAMIN DAILY PO) (3 sources) Multiple Vitamin (MULTI VITAMIN DAILY PO) every 12 (twelve) hours. Active Multiple Vitamins-Minerals (EYE VITAMINS PO) (3 sources) Multiple Vitamin s-Minerals (EYE VITAMINS PO) 1 (one) time each day at the same time. Active Multivitamins (5 sources) Start: 07-09-2014 Multivitamins Multivitamins , # 0.00, 07/09/2014, No Refill. Active for 0 *Reorder from [facility] for eRx and Interaction Alerts* Jul, Active VITAMIN D CALCIUM - this medication is not being screened (5 sources) Start: 07-09-2014 VITAMIN D CALCIUM - this medication is not being screened VITAMIN D CALCIUM - this medication is not being screened( ) Active -Hx Entry for 0 *Reorder from [employer] for eRx and Interaction Alerts* Jul, Active Completed/Discontinued Medications Medication Drug Class(es) Dates Sig (Normalized) Sig (Original) Azithromycin (1 source) Macrolide Antimicrobial Start: 10-16-2023 End: 03-04-2024 Azithromycin Discontinued 0 PO .COMPLEX October 16, 2023 12:00am March 04, 2024 8:42am For 250 mg dose pack: take 500 mg today (day 1), then 250 mg for 4 days (days 2-5) PO sulfamethoxazole 800 mg / trimethoprim 160 mg oral tablet (1 source) Dihydrofolate Reductase Inhibitor Antibacterial, Sulfonamide Antimicrobial Start: 11-01-2023 End: 03-04-2024 take 1 tablet by mouth twice daily Sulfamethoxazole- Trimethoprim Discontinued 1 TAB PO Twice daily November 01, 2023 12:00am March 04, 2024 8:42am Problems Active Problems Problem Classification Problem Date Documented Date Episodic/Chronic Diseases of white blood cells (15 sources) Decreased white blood cell count, unspecified; Translations: [Leukopenia] Onset: 03-17-2022 Chronic Essential hypertension (18 sources) Essential (primary) hypertension; Translations: [Essential hypertension] Onset: 01-03-2022 Chronic Osteoarthritis (4 sources) Primary osteoarthritis, right hand; Translations: [PRIMARY OSTEOARTHRITIS RIGHT HAND] Onset: 08-24-2022 Chronic Other and unspecified benign neoplasm (2 sources) Melanocytic nevus of trunk; Translations: [Melanocytic nevi of trunk] 02-28-2024 Episodic Other circulatory disease (2 sources) Spider nevus; Translations: [Nevus, non-neoplastic] 02-28-2024 Episodic Other endocrine disorders (2 sources) Endocrine disorder, unspecified; Translations: [Unspecified endocrine disorder] Onset: 03-20-2022 03-04-2024 Episodic Other endocrine disorders (9 sources) Disorder of endocrine system; Translations: [Endocrine [...] neoplasm of colon] Onset: 12-09-2021 Episodic Other skin disorders (2 sources) Seborrheic keratosis; Translations: [Other seborrheic keratosis] 02-28-2024 Episodic Other skin disorders (2 sources) Inflamed seborrheic keratosis; Translations: [Inflamed seborrheic keratosis] 02-28-2024 Episodic Other skin disorders (2 sources) Lentiginosis; Translations: [Other melanin hyperpigmentation] 02-28-2024 Episodic Other skin disorders (2 sources) Sebaceous gland hypertrophy; Translations: [Other specified follicular disorders] 02-28-2024 Episodic Other upper respiratory disease (5 sources) Congestion of nasal sinus; Translations: [Nasal congestion] Episodic Other upper respiratory infections (3 sources) Viral upper respiratory tract infection; Translations: [Acute upper respiratory infection, unspecified] 10-06-2023 Episodic Thyroid disorders (11 sources) Other specified hypothyroidism; Translations: [Hypothyroidism] Onset: 03-20-2022 Chronic Past or Other Problems Problem Classification Problem Date Documented Da te Episodic/Chronic Residual codes; unclassified (1 source) Family history of malignant neoplasm of breast; Translations: [FAMILY HX MALIG NEOPLASM OF BREAST] Onset: 12-12-2021 Episodic Results Test Name Value Interpretation Reference Range Facility No Panel Informationon 02-27 [facility] Basophils Auto (Bld) [#/Vol] on 01-01-2024 Basophils (Bld) [#/Vol] 0.0 10 3/uL 0.0-0.1 [facility] Basophils/100 WBC Auto (Bld) on 01-01-2024 Basophils/100 WBC (Bld) 0.9 % 0.2-2.0 [facility] Cholesterol in LDL Calc [Mas s/Vol]on 01-01-2024 Cholesterol in LDL [Mass/Vol] 101.0 mg/dL [facility] Comment on above: <100 mg/dl [id number] 0-129 mg/dl NEAR OR ABOVE [id number] mg/dl BORDERLINE [id number] mg/dl HIGH>190 mg/dl VERY HIGH Cholesterol in VLDL Calc [Ma ss/Vol]on 01-01-2024 Cholesterol in VLDL [Mass/Vol] 9.4 mg/dL [facility] Eosinophils/100 WBC Auto (Bl d)on 01-01-2024 Eosinophils/100 WBC (Bld) 10.3 % High 0.9-7.0 [facility] Erythrocyte distribution wid th Auto (RBC) [Ratio]on 01-01-2024 Erythrocyte distribution width (RBC) [Ratio] 12.7 % 11.0-15.0 [facility] Estimated glomerular filtrat ion rate (GFR) non- Americanon 01-01-2024 GFR/1.73 sq M.predicted among non-blacks MDRD (S/P/Bld) [Vol rate/Area] mL/min/{1.73_m2} >=60 [facility] Free testosterone measuremen t by LC-MS/MSon 01-01-2024 Testosterone Free [Mass/Vol] 2.1 pg/mL 0.0-4.2 [facility] Comment on above: Performed at: - [address] [id number] Director: Catrachito Moreland PhD, Phone: [phone] at: [facility] [address] [id number] Director: Topher Haynes MD, Phone: [phone] Globulin Calc (S) [Mass/Vol] on 01-01-2024 Globulin (S) [Mass/Vol] 3.0 g/dL [facility] Glucose mean value [Mass/vol ume] in Blood Estimated from glycated hemoglobinon 01-01-2024 Average glucose Estimated from glycated hemoglobin (Bld) [Mass/Vol] 103 mg/dL [facility] Hematocrit Auto (Bld) [Volum e fraction]on 01-01-2024 Hematocrit (Bld) [Volume fraction] 44.7 % 36.0-48.0 [facility] Hemoglobin [Mass/volume] in Bloodon 01-01-2024 Hemoglobin (Bld) [Mass/Vol] 14.8 g/dL 12.0-16.0 [facility] Laboratory - Chemistry and C hemistry - challengeon 01-01-2024 Albumin [Mass/Vol] 3.8 g/dL 3.4-5.0 [facility] ALP [Catalytic activity/Vol] 52 U/L 46-116 [facility] ALT [Catalytic activity/Vol] 37 U/L 14-59 [facility] AST [Catalytic activity/Vol] 28 U/L 15-37 [facility] Bilirubin [Mass/Vol] 1.0 mg/dL 0.2-1.0 [facility] Calcium [Mass/Vol] 8.8 mg/dL 8.5-10.1 [facility] Chloride [Moles/Vol] 103 mmol/L 98-107 [facility] Cholesterol [Mass/Vol] 202 mg/dL High <=200 [facility] Cholesterol in HDL [Mass/Vol] 92 mg/dL High 40-60 [facility] Comment on above: > or =60 mg/dl - LOW CARDIOVASCULAR RISK<40 mg/dl - HIGH CARDIOVASCULAR RISK CO2 [Moles/Vol] 31.1 mmol/L 21.0-32.0 [facility] Creatinine [Mass/Vol] 0.87 mg/dL 0.55-1.02 [facility] GFR/1.73 sq M.predicted MDRD (S/P/Bld) [Vol rate/Area] mL/min/{1.73_m2} >=60 [facility] Glucose [Mass/Vol] 93 mg/dL 74-106 [facility] Potassium [Moles/Vol] 3.9 mmol/L 3.5-5.[address] [facility] Protein [Mass/Vol] 6.8 g/dL 6.4-8.2 [facility] Sodium [Moles/Vol] 140 mmol/L 136-145 [facility] Triglyceride [Mass/Vol] 47 mg/dL <=150 [facility] TSH Qn 1.677 m[IU]/L 0.358-3.740 [facility] Urea nitrogen [Mass/Vol] 25.0 mg/dL High 7.0-18.0 [facility] Urea nitrogen/Creatinine [Mass ratio] 28.7 mg/mg [facility] Laboratory - Hematology and Cell countson 01-01-2024 HbA1c (Bld) [Mass fraction] 5.2 % 4.5-6.2 [facility] Comment on above: ADA RECOMMENDED LIMI T 4.0 - 6.0ADA THERAPEUTIC TARGET < 7.0ACTION SUGGESTED> 7.0 Immature granulocytes/100 WBC (Bld) 0.3 % 0.0-0.5 [facility] Leukocytes [#/volume] correc pacheco for nucleated erythrocytes in Blood by Automated counon 01-01-2024 WBC corrected for nucl RBC Auto (Bld) [#/Vol] 3.5 10 3/uL Low 4.0-11.0 [facility] Lymphocytes Auto (Bld) [#/Vo l]on 01-01-2024 Lymphocytes (Bld) [#/Vol] 1.1 10 3/uL Low 1.2-3.8 [facility] Lymphocytes/100 WBC Auto (Bl d)on 01-01-2024 Lymphocytes/100 WBC (Bld) 31.4 % 20.5-60.0 [facility] MCH Auto (RBC) [Entitic mass ]on 01-01-2024 MCH (RBC) [Entitic mass] 32.2 pg 26.7-34.0 [facility] MCHC Auto (RBC) [Mass/Vol]on 01-01-2024 MCHC (RBC) [Mass/Vol] 33.1 g/dL 29.9-35.2 [facility] MCV Auto (RBC) [Entitic vol] on 01-01-2024 MCV (RBC) [Entitic vol] 97.2 fL 81.0-99.0 [facility] Monocytes Auto (Bld) [#/Vol] on 01-01-2024 Monocytes (Bld) [#/Vol] 0.3 10 3/uL 0.3-0.8 [facility] Monocytes/100 WBC Auto (Bld) on 01-01-2024 Monocytes/100 WBC (Bld) 8.0 % 1.7-12.0 [facility] Neutrophils Auto (Bld) [#/Vo l]on 01-01-2024 Neutrophils (Bld) [#/Vol] 1.7 10 3/uL 1.4-6.5 [facility] Neutrophils/100 WBC Auto (Bl d)on 01-01-2024 Neutrophils/100 WBC (Bld) 49.1 % 43.0-75.0 [facility] No Panel Informationon 12-31 25-Hydroxy Vitamin D Total 126.7 ng/mL [facility] Comment on above: <20 ng/mL Vit D defi cient20-<30 ng/mL Vit D qhekoxumkatk63-693 ng/mL Vit D sufficient>100 ng/mL Potential Toxicity Dehydroepiandrosterone Sulfate 81.6 ug/dL 20.4-186.6 [facility] Eosinophils # (Auto) 0.4 10 3/uL 0.0-0.7 [facility] Immature Granulocyte # (Auto) 0.01 10 3/uL 0.00-0.03 [facility] Sex Hormone Binding Globulin 93.8 nmol/L 17.3-125.0 [facility] Comment on above: Performed at: [address] [id number] Director: Catrachito Moreland PhD, Phone: [phone] Testosterone Level 236 ng/dL Abnormal 3 [facility] Platelet mean volume Auto (B ld) [Entitic vol]on 01-01-2024 Platelet mean volume (Bld) [Entitic vol] 9.8 fL 9.5-13.5 [facility] Platelets Auto (Bld) [#/Vol] on 01-01-2024 Platelets (Bld) [#/Vol] 183 10 3/uL 150-450 [facility] RBC Auto (Bld) [#/Vol]on RBC (Bld) [#/Vol] 4.60 10 6/uL 4.20-5.40 [facility] Serum estrone measurementon 01-01-2024 E1 [Mass/Vol] 35 pg/mL 0-125 [facility] Comment on above: Range Adult (Premeno pausal) 27 - 231 Menstrual Cycle (1-10 days) 19 - 149 Menstrual Cycle (11-20 days) 32 - 176 Menstrual Cycle (21-30 days) 37 - 200 Adult (Postmenopausal) 0 - 125Performed at: BN - [facility] [address] [id number] Director: Topher Haynes MD, Phone: [phone] Serum or plasma albumin/glob ulin mass ratioon 01-01-2024 Albumin/Globulin [Mass ratio] 1.3 {ratio} [facility] Serum or plasma anion gap de terminationon 01-01-2024 Anion gap [Moles/Vol] 9.8 mmol/L [facility] Serum or plasma estradiol (E 2) measurement (mass/volume)on 01-01-2024 E2 [Mass/Vol] 13.6 pg/mL 0.0-54.7 [facility] Comment on above: Adult Female Range F ollicular phase 12.5 - 166.0 Ovulation phase 85.8 - 498.0 Luteal phase 43.8 - 211.0 Postmenopausal <6.0 - 54.7 1st trimester 215.0 - >4300.0Roche ECLIA methodology Serum or plasma progesterone measurement (mass/volume)on 01-01-2024 Progesterone [Mass/Vol] 1.4 ng/mL . [facility] Comment on above: Follicular phase 0.1 - 0.9 Luteal phase 1.8 - 23.9 Ovulation phase 0.1 - 12.0 First trimester 11.0 - 44.3 Second trimester 25.4 - 83.3 Third trimester 58.7 - 214.0 Postmenopausal 0.0 - 0.1 Serum or plasma total choles terol/high density lipoprotein (HDL) cholesterol mass curt 01-01-2024 Cholesterol.total/Choleste rol in HDL [Mass ratio] 2.2 {ratio} [facility] Comment on above: 3.3 - 4.4 LOW RISK4. 4 - 7.1 AVERAGE RISK7.1 - 11.0 MODERATE RISK>11.0 HIGH RISK Physician Referralon 024 Physician Referral [id number] Normal [facility] ESTRONEon 03-22-2022 Estrone, Serum <6 Normal 0-125 [facility] Comment on above: Result Comment: Rang e Adult (Premenopausal) 27 - 231 Menstrual Cycle (1-10 days) 19 - 149 Menstrual Cycle (11-20 days) 32 - 176 Menstrual Cycle (21-30 days) 37 - 200 Adult (Postmenopausal) 0 - 125 Performed By: #### E STRONE #### [facility] [address] [place] [address] Dr. Josse Gant TESTOSTERONE, FREE,DIRECT, T OTALolarry 03-22-2022 Free Testosterone(Direct) 0.5 pg/mL Normal 0.0-4.2 [facility] Comment on above: Result Comment: Perf ormed at: BN Performed By: #### T ESTFRD #### [facility] [address] [address] [address] Josse Gant Testosterone [Mass/Vol] 60 ng/dL Normal 3-67 [facility] Comment on above: Result Comment: Perf ormed at: CB Performed By: #### T ESTFRD #### [facility] [address] [address] [address] Josse Gant VIT D 1 25 DIHYDROXYon 03-20 Calcitriol(1,25 di-OH Vit D) 55.0 pg/mL Normal 24.8-81.5 [facility] Comment on above: Performed By: #### V [id number] #### [facility] [address] [place] [address] Dr. Josse Gant CORTISOLon 03-18-2022 Cortisol 10.6 ug/dL Normal [facility] Comment on above: Result Comment: Patricio isol AM 6.2 - 19.4 Cortisol PM 2.3 - 11.9 Performed By: #### T SH #### [facility] [address] [address] [address] Josse Gant DHEA-SULFATEon 03-18-2022 DHEA-Sulfate 32.3 ug/dL Normal 20.4-186.6 [facility] Comment on above: Performed By: #### T SH #### [facility] [address] [address] [address] Josse Gant ESTRADIOLon 03-18-2022 Estradiol <5.0 Normal [facility] Comment on above: Result Comment: Adul t Female: Follicular phase 12.5 - 166.0 Ovulation phase 85.8 - 498.0 Luteal phase 43.8 - 211.0 Postmenopausal <6.0 - 54.7 1st trimester 215.0 - >4300.0 Kim ECLIA methodology Performed By: #### E STRADI #### [facility] [address] [address] [address] Josse Gant PROGESTERONEon 03-18-2022 Progesterone 0.3 ng/mL Normal [facility] Comment on above: Result Comment: Foll icular phase 0.1 - 0.9 Luteal phase 1.8 - 23.9 Ovulation phase 0.1 - 12.0 First trimester 11.0 - 44.3 Second trimester 25.4 - 83.3 Third trimester 58.7 - 214.0 Postmenopausal 0.0 - 0.1 Performed By: #### T SH #### [facility] [address] [address] [address] Josse Gant SEX HORMONE-BINDING GLOBULIN on 03-18-2022 Sex Horm Binding Glob, Serum 107.0 nmol/L Normal 17.3-125.0 [facility] Comment on above: Performed By: #### S EXHBG #### [facility] [address] [address] [address] Josse Gant CBC AUTO DIFFon 03-17-2022 BASO # 0.0 103/ul Normal 0.0-0.1 [facility] Comment on above: Performed By: #### C BC #### [facility] [address] [place] [address] Dr. Josse Gant Basophils/100 WBC (Bld) 0.5 % Normal 0.2-2.0 [facility] Comment on above: Performed By: #### C BC #### [facility] [address] [place] [address] Dr. Josse Gant EO # 0.2 103/ul Normal 0.0-0.7 [facility] Comment on above: Performed By: #### C BC #### [facility] [address] [place] [address] Dr. Josse Gant Eosinophils/100 WBC (Bld) 5.7 % Normal 0.9-7.0 [facility] Comment on above: Performed By: #### C BC #### [facility] [address] [place] [address] Dr. Josse Gant Erythrocyte distribution width (RBC) [Ratio] 12.7 % Normal 11.0-15.0 [facility] Comment on above: Performed By: #### C BC #### [facility] [address] [place] [address] Dr. Josse Gant Hematocrit (Bld) [Volume fraction] 44.7 % Normal 36.0-48.0 [facility] Comment on above: Performed By: #### C BC #### [facility] [address] [place] [address] Dr. Josse Gant Hemoglobin (Bld) [Mass/Vol] 15.0 g/dL Normal 12.0-16.0 [facility] Comment on above: Performed By: #### C BC #### [facility] [address] [place] [address] Dr. Josse Gant IG # 0.00 10e3/ul Normal 0.00-0.03 [facility] Comment on above: Performed By: #### C BC #### [facility] [address] [place] [address] Dr. Josse Gant IG % 0.0 % Normal 0.0-0.5 [facility] Comment on above: Performed By: #### C BC #### [facility] [address] [address] [address] Josse Gant LYMPH # 1.1 103/ul Critically low 1.2-3.8 [facility] Comment on above: Performed By: #### C BC #### [facility] [address] [address] [address] Josse Gant Lymphocytes/100 WBC (Bld) 28.4 % Normal 20.5-60.0 [facility] Comment on above: Performed By: #### C BC #### [facility] [address] [place] [address] Dr. Josse Gant MANUAL DIFF REQ NO Normal [facility] Comment on above: Performed By: #### C BC #### [facility] [address] [place] [address] Dr. Josse Gant MCH (RBC) [Entitic mass] 31.8 pg Normal 26.7-34.0 [facility] Comment on above: Performed By: #### C BC #### [facility] [address] [place] [address] Dr. Josse Gant MCHC (RBC) [Mass/Vol] 33.6 g/dL Normal 29.9-35.2 [facility] Comment on above: Performed By: #### C BC #### [facility] [address] [place] [address] Dr. Josse Gant MCV (RBC) [Entitic vol] 94.9 fL Normal 81.0-99.0 [facility] Comment on above: Performed By: #### C BC #### [facility] [address] [place] [address] Dr. Josse Gant MONO # 0.3 103/ul Normal 0.3-0.8 [facility] Comment on above: Performed By: #### C BC #### [facility] [address] [place] [address] Dr. Josse Gant Monocytes/100 WBC (Bld) 8.8 % Normal 1.7-12.0 [facility] Comment on above: Performed By: #### C BC #### [facility] [address] [address] [address] Josse Gant NEUT # 2.2 103/ul Normal 1.4-6.5 [facility] Comment on above: Performed By: #### C BC #### [facility] [address] [address] [address] Josse Gant Neutrophils/100 WBC (Bld) 56.6 % Normal 43.0-75.0 [facility] Comment on above: Performed By: #### C BC #### [facility] [address] [place] [address] Dr. Josse Gant Platelet mean volume (Bld) [Entitic vol] 9.2 fL Critically low 9.5-13.5 [facility] Comment on above: Performed By: #### C BC #### [facility] [address] [place] [address] Dr. Josse Gant PLT 213 103/ul Normal 150-450 [facility] Comment on above: Performed By: #### C BC #### [facility] [address] [place] [address] Dr. Josse Gant RBC 4.71 106/ul Normal 4.20-5.40 [facility] Comment on above: Performed By: #### C BC #### [facility] [address] [place] [address] Dr. Josse Gant WBC 3.9 103/ul Critically low 4.0-11.0 [facility] Comment on above: Performed By: #### C BC #### [facility] [address] [place] [address] Dr. Josse Gant FREE T4on 03-17-2022 Free T4 [Mass/Vol] 0.90 ng/dL Normal 0.76-1.46 [facility] Comment on above: Performed By: #### T SH #### [facility] [address] [place] [address] Dr. Josse Gant TSHon 03-17-2022 TSH 1.332 uIU/mL Normal 0.358-3.740 [facility] Comment on above: Performed By: #### T SH #### [facility] [address] [place] [address] Dr. Josse Gant CBC AUTO DIFFon 01-03-2022 BASO # 0.0 103/ul Normal 0.0-0.1 [facility] Comment on above: Performed By: #### C BC #### [facility] [address] [place] [address] Dr. Josse Gant Basophils/100 WBC (Bld) 0.8 % Normal 0.2-2.0 [facility] Comment on above: Performed By: #### C BC #### [facility] [address] [place] [address] Dr. Josse Gant EO # 0.3 103/ul Normal 0.0-0.7 [facility] [facility] Comment on above: Performed By: #### C BC #### [facility] [address] [place] [address] Dr. Josse Gant Eosinophils/100 WBC (Bld) 7.3 % Critically high 0.9-7 .0 [facility] Comment on above: Performed By: #### C BC #### [facility] [address] [place] [address] Dr. Josse Gant Erythrocyte distribution width (RBC) [Ratio] 12.6 % Normal 11.0-15.0 [facility] Comment on above: Performed By: #### C BC #### [facility] [address] [place] [address] Dr. Josse Gant Hematocrit (Bld) [Volume fraction] 45.3 % Normal 36.0-48.0 [facility] Comment on above: Performed By: #### C BC #### [facility] [address] [place] [address] Dr. Josse Gant Hemoglobin (Bld) [Mass/Vol] 14.7 g/dL Normal 12.0-16.0 [facility] Comment on above: Performed By: #### C BC #### [facility] [address] [place] [address] Dr. Josse Gant IG # 0.01 10e3/ul Normal 0.00-0.03 [facility] Comment on above: Performed By: #### C BC #### [facility] [address] [place] [address] Dr. Josse Gant IG % 0.3 % Normal 0.0-0.5 [facility] Comment on above: Performed By: #### C BC #### [facility] [address] [place] [address] Dr. Josse Gant LYMPH # 1.5 103/ul Normal 1.2-3.8 [facility] Comment on above: Performed By: #### C BC #### [facility] [address] [place] [address] Dr. Josse Gant Lymphocytes/100 WBC (Bld) 38.8 % Normal 20.5-60.0 [facility] Comment on above: Performed By: #### C BC #### [facility] [address] [place] [address] Dr. Josse Gant MANUAL DIFF REQ NO Normal [facility] Comment on above: Performed By: #### C BC #### [facility] [address] [place] [address] Dr. Josse Gant MCH (RBC) [Entitic mass] 30.8 pg Normal 26.7-34.0 [facility] Comment on above: Performed By: #### C BC #### [facility] [address] [place] [address] Dr. Josse Gant MCHC (RBC) [Mass/Vol] 32.5 g/dL Normal 29.9-35.2 [facility] Comment on above: Performed By: #### C BC #### [facility] [address] [place] [address] Dr. Josse Gant MCV (RBC) [Entitic vol] 95.0 fL Normal 81.0-99.0 [facility] Comment on above: Performed By: #### C BC #### [facility] [address] [place] [address] Dr. Josse Gant MONO # 0.4 103/ul Normal 0.3-0.8 [facility] Comment on above: Performed By: #### C BC #### [facility] [address] [address] [address] Josse Gant Monocytes/100 WBC (Bld) 9.4 % Normal 1.7-12.0 [facility] Comment on above: Performed By: #### C BC #### [facility] [address] [address] [address] Josse Gant NEUT # 1.7 103/ul Normal 1.4-6.5 [facility] Comment on above: Performed By: #### C BC #### [facility] [address] [address] [address] Josse Gant Neutrophils/100 WBC (Bld) 43.4 % Normal 43.0-75.0 [facility] Comment on above: Performed By: #### C BC #### [facility] [address] [place] [address] Dr. Josse Gant Platelet mean volume (Bld) [Entitic vol] 9.6 fL Normal 9.5-13.5 [facility] Comment on above: Performed By: #### C BC #### [facility] [address] [place] [address] Dr. Josse Gant PLT 190 103/ul Normal 150-450 [facility] Comment on above: Performed By: #### C BC #### [facility] [address] [address] [address] Josse Gant RBC 4.77 106/ul Normal 4.20-5.40 [facility] Comment on above: Performed By: #### C BC #### [facility] [address] [place] [address] Dr. Josse Gant WBC 3.8 103/ul Critically low 4.0-11.0 [facility] Comment on above: Performed By: #### C BC #### [facility] [address] [place] [address] Dr. Josse Gant LIPID PROFILEon 01-03-2022 CHOL-HDL RATIO NORM SEE BELOW Normal [facility] Comment on above: Result Comment: 3.3 - 4.4 LOW RISK 4.4 - 7.1 AVERAGE RISK 7.1 - 11.0 MODERATE RISK >11.0 HIGH RISK Performed By: #### L IPID, CMP #### [facility] [address] [address] [address] Josse Gant Cholesterol [Mass/Vol] 222 mg/dL Critically high <=200 [facility] Comment on above: Performed By: #### L IPID, CMP #### [facility] [address] [address] [address] Josse Gant Cholesterol in HDL [Mass/Vol] 91 mg/dL Critically high 40-60 [facility] Comment on above: Performed By: #### L IPID, CMP #### [facility] [address] [address] [address] Josse Gant Cholesterol in LDL [Mass/Vol] 115.4 mg/dL Normal [facility] Comment on above: Performed By: #### L IPID, CMP #### [facility] [address] [address] [address] Josse Gant Cholesterol.total/Choleste rol in HDL [Mass ratio] 2.4 {ratio} Normal [facility] Comment on above: Performed By: #### L IPID, CMP #### [facility] [address] [place] [address] Dr. Josse Gant HDL NORMAL > or = 60 mg/dl - LOW CARDIOVASCULAR RISK <40 mg/dl - HIGH CARDIOVASCULAR RISK Normal [facility] Comment on above: Performed By: #### L IPID, CMP #### [facility] [address] [place] [address] Dr. Josse Gant LDL CALC NORMAL SEE BELOW Normal [facility] Comment on above: Result Comment: <100 mg/dl OPTIMAL 100 - 129 mg/dl NEAR OR ABOVE OPTIMAL 130 - 159 mg/dl BORDERLINE HIGH 160 - 189 mg/dl HIGH >190 mg/dl VERY HIGH Performed By: #### L IPID, CMP #### [facility] [address] [place] [address] Dr. Josse Gant Triglyceride [Mass/Vol] 78 mg/dL Normal <=150 [facility] Comment on above: Performed By: #### L IPID, CMP #### [facility] [address] [address] [address] Josse Gant VLDL CALC 15.6 mg/dL Normal [facility] Comment on above: Performed By: #### L IPID, CMP #### [facility] [address] [address] [address] Josse Gant PROF 14(COMP METB)on 022 Albumin [Mass/Vol] 3.9 g/dL Normal 3.4-5.0 [facility] Comment on above: Performed By: #### L IPID, CMP #### [facility] [address] [place] [address] Dr. Josse Gant Albumin/Globulin [Mass ratio] 1.3 {ratio} Normal [facility] Comment on above: Performed By: #### L IPID, CMP #### [facility] [address] [place] [address] Dr. Josse Gant ALP [Catalytic activity/Vol] 53 U/L Normal 46-116 [facility] Comment on above: Performed By: #### L IPID, CMP #### [facility] [address] [place] [address] Dr. Josse Gant ALT [Catalytic activity/Vol] 39 U/L Normal 14-59 [facility] Comment on above: Performed By: #### L IPID, CMP #### [facility] [address] [address] [address] Josse Gant Anion gap [Moles/Vol] 11.2 mmol/L Normal [facility] Comment on above: Performed By: #### L IPID, CMP #### [facility] [address] [place] [address] Dr. Josse Gant AST [Catalytic activity/Vol] 24 U/L Normal 15-37 [facility] Comment on above: Performed By: #### L IPID, CMP #### [facility] [address] [place] [address] Dr. Josse Gant Bilirubin [Mass/Vol] 0.9 mg/dL Normal 0.2-1.0 [facility] Comment on above: Performed By: #### L IPID, CMP #### [facility] [address] [address] [address] Josse Gant Calcium [Mass/Vol] 8.8 mg/dL Normal 8.5-10.1 [facility] Comment on above: Performed By: #### L IPID, CMP #### [facility] [address] [place] [address] Dr. Josse Gant Chloride [Moles/Vol] 102 mmol/L Normal 98-107 [facility] Comment on above: Performed By: #### L IPID, CMP #### [facility] [address] [place] [address] Dr. Josse Gant CO2 [Moles/Vol] 32.4 mmol/L Critically high 21.0-32.0 [facility] Comment on above: Performed By: #### L IPID, CMP #### [facility] [address] [place] [address] Dr. Josse Gant Creatinine [Mass/Vol] 0.83 mg/dL Normal 0.55-1.02 [facility] Comment on above: Performed By: #### L IPID, CMP #### [facility] [address] [place] [address] Dr. Josse Gant EGFR-AF JAMAICAN >60 Normal >=60 [facility] Comment on above: Performed By: #### L IPID, CMP #### [facility] [address] [place] [address] Dr. Josse Gant EGFR-NON AF JAMAICAN >60 Normal >=60 [facility] Comment on above: Performed By: #### L IPID, CMP #### [facility] [address] [place] [address] Dr. Josse Gant Globulin (S) [Mass/Vol] 3.1 g/dL Normal [facility] Comment on above: Performed By: #### L IPID, CMP #### [facility] [address] [place] [address] Dr. Josse Gant Glucose [Mass/Vol] 103 mg/dL Normal 74-[address] [facility] Comment on above: Performed By: #### L IPID, CMP #### [facility] [address] [address] [address] Josse Gant Potassium [Moles/Vol] 4.6 mmol/L Normal 3.5-5.1 [facility] Comment on above: Performed By: #### L IPID, CMP #### [facility] [address] [address] [address] Josse Gant Protein [Mass/Vol] 7.0 g/dL Normal 6.4-8.[address] [facility] Comment on above: Performed By: #### L IPID, CMP #### [facility] [address] [place] [address] Dr. Josse Gant Sodium [Moles/Vol] 141 mmol/L Normal 136-145 [facility] Comment on above: Performed By: #### L IPID, CMP #### [facility] [address] [place] [address] Dr. Josse Gant Urea nitrogen [Mass/Vol] 22.0 mg/dL Critically high 7.0-18 .0 [facility] Comment on above: Performed By: #### L IPID, CMP #### [facility] [address] [place] [address] Dr. Josse Gant Urea nitrogen/Creatinine [Mass ratio] 26.5 mg/mg Normal [facility] Comment on above: Performed By: #### L IPID, CMP #### [facility] [address] [place] [address] Dr. Josse Gant MG MAMM SCREEN 3D JHONNY CADon 12-09-2021 MG MAMM SCREEN 3D JHONNY CAD Patient: KORTNEY SALAZAR Exam Date: 12/09/2021 : 1955 Gender:F Ordering : DR SNEHA CESPEDES M.D. Admission #: [id number] Family : Order #: [id number] CLICK HERE TO VIEW EXAM RADIOLOGY REPORT [...] breast cancer at age 73. LOCATION: [facility] BREAST COMPOSITION: Heterogeneously dense,which may obscure small [...] M.D. on 12/09/2021 at 12:57 Normal [facility] CBC Without Differentialon 0 11-20-2020 Erythrocyte distribution width (RBC) [Ratio] 13.7 % Normal 11.9-15.3 [facility] Comment on above: Performed By: #### O UTREACH LIPID, OUTREACH CMP, CBCNOOUTREACH #### [address] Hematocrit (Bld) [Volume fraction] 43.6 % Normal 34.0-46.4 [facility] Comment on above: Performed By: #### O UTREACH LIPID, OUTREACH CMP, CBCNOOUTREACH #### [facility] [address] [id number] [facility] Hemoglobin (Bld) [Mass/Vol] 14.4 g/dL Normal 11.8-15.4 [facility] Comment on above: Performed By: #### O UTREACH LIPID, OUTREACH CMP, CBCNOOUTREACH #### [address] [id number] [facility] MCH (RBC) [Entitic mass] 31.5 pg Normal 24.7-34.3 [facility] Comment on above: Performed By: #### O UTREACH LIPID, OUTREACH CMP, CBCNOOUTREACH #### [address] MCV (RBC) [Entitic vol] 95.0 fL Normal 80-100 [facility] Comment on above: Performed By: #### O UTREACH LIPID, OUTREACH CMP, CBCNOOUTREACH #### [address] Mean Corpuscular HGB Conc 33.2 g/dL Normal 32.0-35.0 [facility] Comment on above: Performed By: #### O UTREACH LIPID, OUTREACH CMP, CBCNOOUTREACH #### [address] Platelet mean volume (Bld) [Entitic vol] 9.3 fL Normal 6.3-10.7 [facility] Comment on above: Result Comment: PERF ORMED BY: [place] [address] PATHOLOGIST HVAC SPECIALIST RUIZ WEI M.D. Performed By: #### O UTREACH LIPID, OUTREACH CMP, CBCNOOUTREACH #### [address] Platelets (Bld) [#/Vol] 187 10*3/uL Normal 150-450 [facility] Comment on above: Performed By: #### O UTREACH LIPID, OUTREACH CMP, CBCNOOUTREACH #### [address] RBC (Bld) [#/Vol] 4.58 10*6/uL Normal 3.60-5.00 [facility] Comment on above: Performed By: #### O UTREACH LIPID, OUTREACH CMP, CBCNOOUTREACH #### [address] WBC (Bld) [#/Vol] 3.8 10*3/uL Normal 3.8-11.6 [facility] Comment on above: Performed By: #### O UTREACH LIPID, OUTREACH CMP, CBCNOOUTREACH #### [facility] [address] [id number] [facility] CMP Outreachon 11-20-2020 Albumin [Mass/Vol] 4.1 g/dL Normal 3.2-5.5 [facility] Comment on above: Performed By: #### O UTREACH LIPID, OUTREACH CMP, CBCNOOUTREACH #### [facility] [address] [id number] [facility] ALP [Catalytic activity/Vol] 37 U/L Normal 32-92 [facility] Comment on above: Performed By: #### O UTREACH LIPID, OUTREACH CMP, CBCNOOUTREACH #### [address] ALT [Catalytic activity/Vol] 27 U/L Normal 10-60 [facility] Comment on above: Performed By: #### O UTREACH LIPID, OUTREACH CMP, CBCNOOUTREACH #### [address] [id number] [facility] AST [Catalytic activity/Vol] 30 U/L Normal 10-42 [facility] Comment on above: Performed By: #### O UTREACH LIPID, OUTREACH CMP, CBCNOOUTREACH #### [address] Bilirubin [Mass/Vol] 1.4 mg/dL High 0.3-1.2 [facility] Comment on above: Result Comment: Samp les from patients who have taken Naproxen have shown spurious elevation in Total Bilirubin levels. A metabolite of Naproxen, O-desmethylnaproxen, has been shown to interfere with the Jendrassik-Grof method for measuring Total Bilirubin. Performed By: #### O UTREACH LIPID, OUTREACH CMP, CBCNOOUTREACH #### [address] Calcium [Mass/Vol] 9.4 mg/dL Normal 8.2-10.2 [facility] Comment on above: Performed By: #### O UTREACH LIPID, OUTREACH CMP, CBCNOOUTREACH #### [address] Chloride [Moles/Vol] 101 mmol/L Normal 95-114 [facility] Comment on above: Performed By: #### O UTREACH LIPID, OUTREACH CMP, CBCNOOUTREACH #### [facility] [address] CO2 [Moles/Vol] 28.0 mmol/L Normal 22.0-30.0 [facility] Comment on above: Performed By: #### O UTREACH LIPID, OUTREACH CMP, CBCNOOUTREACH #### [facility] [address] Creatinine [Mass/Vol] 0.85 mg/dL Normal 0.44-1.03 [facility] Comment on above: Performed By: #### O UTREACH LIPID, OUTREACH CMP, CBCNOOUTREACH #### [address] Estimated GFR ( Cristy > 60 [place] Comment on above: Result Comment: GFR estimated reference range: According to KDOQI guidelines, <60 ml/min/1.73m2 is sufficient to diagnose a patient with chronic kidney disease. Performed By: #### O UTREACH LIPID, OUTREACH CMP, CBCNOOUTREACH #### [facility] [address] [place] [address] Estimated GFR (Non- Am > 60 [place] Comment on above: Performed By: #### O UTREACH LIPID, OUTREACH CMP, CBCNOOUTREACH #### [facility] [address] [place] [address] Glucose [Mass/Vol] 92 mg/dL Normal 70-100 [facility] Comment on above: Result Comment: Given om Glucose Reference Range is dependent on time and content of last meal. Glucose of more than 200 mg/dL in a nonstressed, ambulatory subject supports the diagnosis of Diabetes Mellitus. ADA recommended reference range Performed By: #### O UTREACH LIPID, OUTREACH CMP, CBCNOOUTREACH #### [facility] [address] [place] [address] Potassium [Moles/Vol] 4.1 mmol/L Normal 3.5-5.1 [facility] Comment on above: Performed By: #### O UTREACH LIPID, OUTREACH CMP, CBCNOOUTREACH #### [facility] [address] Protein [Mass/Vol] 6.6 g/dL Normal 6.1-7.9 [facility] Comment on above: Performed By: #### O UTREACH LIPID, OUTREACH CMP, CBCNOOUTREACH #### [facility] [address] Sodium [Moles/Vol] 137 mmol/L Normal 136-146 [facility] Comment on above: Performed By: #### O UTREACH LIPID, OUTREACH CMP, CBCNOOUTREACH #### [facility] [address] Urea nitrogen [Mass/Vol] 25 mg/dL High 9-23 [facility] Comment on above: Performed By: #### O UTREACH LIPID, OUTREACH CMP, CBCNOOUTREACH #### [facility] [address] [id number] [facility] Lipid Profile Outreachon Cholesterol [Mass/Vol] 254 mg/dL High 140-200 [facility] Comment on above: Result Comment: Chol less than 200 mg/dl low risk Chol 201-239 mg/dl borderline risk Chol 240 mg/dl and greater high risk Performed By: #### O UTREACH LIPID, OUTREACH CMP, CBCNOOUTREACH #### [facility] [address] [id number] [facility] Cholesterol in HDL [Mass/Vol] 94 mg/dL High 35-85 [facility] Comment on above: Result Comment: HDL CHOL ATP-III CLASSIFICATION Cardiovascular Risk HDL > or equal to 60 mg/dL LOW HDL < 40 mg/dL HIGH Performed By: #### O UTREACH LIPID, OUTREACH CMP, CBCNOOUTREACH #### [facility] [address] [id number] [facility] Cholesterol.total/Choleste rol in HDL [Mass ratio] 2.7 {ratio} Normal <5.0 [facility] Comment on above: Result Comment: PERF ORMED BY: [place] [address] PATHOLOGIST HVAC SPECIALIST RUIZ WEI M.D. Performed By: #### O UTREACH LIPID, OUTREACH CMP, CBCNOOUTREACH #### [facility] [address] LDL Cholesterol,Calculated 150 mg/dL High 0-100 [facility] Comment on above: Result Comment: LDL ATP III CLASSIFICATION LDL less than 100 mg/dL Optimal LDL 100-129 mg/dL Near or above optimal LDL 130-159 mg/dL Borderline high LDL 160-189 mg/dL High LDL greater than 189 mg/dL Very high Performed By: #### O UTREACH LIPID, OUTREACH CMP, CBCNOOUTREACH #### [facility] [address] Triglyceride w/Reflex 48 mg/dL Normal 35-149 [facility] Comment on above: Result Comment: TRIG ATP III CLASSIFICATION TRIG less than 150 mg/dL Normal TRIG 150-199 mg/dL Borderline high TRIG 200-500 mg/dL High TRIG greater than 500 mg/dL Very high Standard traceable to the Center for Disease Conrtrol and Prevention (CDC) test method. Performed By: #### O UTREACH LIPID, OUTREACH CMP, CBCNOOUTREACH #### [facility] [address] VLDL CHOLESTEROL 9 mg/dL Normal [facility] Comment on above: Performed By: #### O UTREACH LIPID, OUTREACH CMP, CBCNOOUTREACH #### [facility] [address] Vital Signs Date Time Vital Sign Value Performing Clinician Facility 03-04-2024 08:040 Body height 170.18 cm [facility] 03-04-2024 08:040 Body mass index (BMI) [Ratio] 18.6 kg/m2 [facility] 03-04-2024 08:040 Body weight 53.97 kg [facility] 03-04-2024 08:040 Diastolic blood pressure 78 mm[Hg] [facility] 03-04-2024 08:28-0400 Heart rate 66 /min [facility] 03-04-2024 08:28-0400 Systolic blood pressure 120 mm[Hg] [facility] 10-10-2023 08:43-0400 Body height 170.18 cm [facility] 10-10-2023 08:43-0400 Body mass index (BMI) [Ratio] 18 kg/m2 [facility] 10-10-2023 08:43-0400 Body temperature 98.2 [degF] [facility] 10-10-2023 08:43-0400 Body weight 52.16 kg [facility] 10-10-2023 08:43-0400 Diastolic blood pressure 80 mm[Hg] [facility] 10-10-2023 08:43-0400 Heart rate 80 /min [facility] 10-10-2023 08:43-0400 Systolic blood pressure 127 mm[Hg] [facility] 10-06-2023 09:54-0400 Body height 170.18 cm [facility] 10-06-2023 09:54-0400 Body mass index (BMI) [Ratio] 18.2 kg/m2 [facility] 10-06-2023 09:54-0400 Body temperature 98.3 [degF] [facility] 10-06-2023 09:54-0400 Body weight 52.78 kg [facility] 10-06-2023 09:54-0400 Diastolic blood pressure 81 mm[Hg] [facility] 10-06-2023 09:54-0400 Heart rate 83 /min [facility] 10-06-2023 09:54-0400 Respiratory rate 16 /min [facility] 10-06-2023 09:54-0400 SaO2% (BldA) [Mass fraction] 96 % [facility] 10-06-2023 09:54-0400 Systolic blood pressure 130 mm[Hg] [facility] 07-25-2023 09:08-0400 Body height 170.18 cm [facility] 07-25-2023 09:08-0400 Body mass index (BMI) [Ratio] 18.3 kg/m2 [facility] 07-25-2023 09:08-0400 Body weight 53.12 kg [facility] 07-25-2023 09:08-0400 Diastolic blood pressure 84 mm[Hg] [facility] 07-25-2023 09:08-0400 Heart rate 69 /min [facility] 07-25-2023 09:08-0400 Systolic blood pressure 132 mm[Hg] [facility] 01-02-2023 10:00-0400 Body height 170.18 cm Sneha Cespedes Other [facility] Other 01-02-2023 10:00-0400 Body mass index (BMI) [Ratio] 18.17 kg/m2 Sneha Cespedes Other [facility] Other 01-02-2023 10:00-0400 Body weight 52.62 kg Sneha Cespedes Other [facility] Other 01-02-2023 10:00-0400 Diastolic blood pressure 78 mm[Hg] Sneha Cespedes Other [facility] Other 01-02-2023 10:00-0400 Systolic blood pressure 127 mm[Hg] Sneha Cespedes Other [facility] Other Encounters Encounter Date Encounter Type Care Provider Facility Start: 03-04-2024 End: 03-04-2024 ambulatory [facility] Work Phone: Start: 03-04-2024 End: 03-04-2024 Patient encounter procedure [facility] Work Phone: Start: 02-28-2024 End: 02-28-2024 Bamboo flowsheet Sophia Mensah [employer] TECH[employer]ICIAN Work Phone: [facility] Start: 02-28-2024 End: 02-28-2024 Bamboo flowsheet Sophia Mensah [employer] TECHNICIAN Work Phone: [facility] Start: 02-28-2024 End: 02-28-2024 ambulatory SOPHIA MENSAH Not Available Start: 02-28-2024 End: 02-28-2024 Office outpatient visit 15 minutes Sophia Mensah [employer] TECHNICIAN Work Phone: [facility] Comment on above: Melanocytic nevus of trunk; Seborrheic keratosis; Inflamed seborrheic keratosis; Lentigines; Capillary angioma; Sebaceous hyperplasia Start: 01-01-2024 Non-patient / Non-visit [facility] Work Phone: Start: 10-10-2023 End: 10-10-2023 ambulatory [facility] Work Phone: Start: 10-10-2023 End: 10-10-2023 Patient encounter procedure [facility] Work Phone: Start: 10-06-2023 End: 10-06-2023 ambulatory [facility] Work Phone: Start: 10-06-2023 End: 10-06-2023 Patient encounter procedure [facility] Physician [facility] Work Phone: Start: 07-25-2023 End: 07-25-2023 ambulatory [facility] Work Phone: Start: 07-25-2023 End: 07-25-2023 Patient encounter procedure [facility] Physician [facility] Work Phone: Start: 06-06-2023 End: 06-06-2023 ambulatory Sneha Cespedes Other [facility] Other Start: 06-06-2023 Telephone encounter Sneha Cespedes [facility] Start: 06-05-2023 ambulatory Facility:[facility] Start: 06-04-2023 End: 06-04-2023 ambulatory Sneha Cespedes Other [facility] Other Start: 06-04-2023 Telephone encounter Sneha Cespedes [facility] Start: 01-12-2023 End: 01-12-2023 ambulatory Sneha Cespedes Other [facility] Other Start: 01-12-2023 Encounter by compute r link Sneha Cespedes [facility] Start: 01-02-2023 End: 01-02-2023 ambulatory Sneha Cespedes Other [facility] Other Start: 01-02-2023 Patient encounter procedure Sneha Cespedes [facility] Start: 12-28-2022 End: 12-28-2022 ambulatory Sneha Cespedes Other [facility] Other Start: 12-28-2022 Telephone encounter Sneha Cespedes [facility] Start: 08-24-2022 End: 08-25-2022 ambulatory GURINDER HENNING . Facility:[facility] Start: 03-17-2022 End: 03-18-[address] SNEHA CESPEDES Facility:[facility] Start: 02-07-2022 End: 02-08-[address] JAZZMINE STOCKTON . Facility:[facility] Start: 01-03-2022 End: 01-04-[address] SNEHA CESPEDES Facility:[facility] Start: 12-09-2021 End: 12-10-[address] SNEHA CESPEDES Facility:[facility] Procedures Date Procedure Procedure Detail Performing Clinician Start: 02-28-2024 CRYOTHERAPY SKIN LESION Sophia Mensah [employer]IC[employer] Work Phone: Start: 01-01-2024 Cortisol total Comment on above: Please Note: The ref erence interval and flagging for this test is for an AM collection. If this is a PM collection please use: Cortisol PM: 2.3-11.9 Plan of Treatment Date Care Activity Detail Author Start: 02-26-2025 End: 02-26-2025 Patient encounter procedure 02/26/2025 8:50 AM EDT Office Visit [facility] [address] [place] [id number] Sophia Mensah, STATION CASHIER-LIGHT TECHNICIAN [address] [place] [address] [facility] Start: 01-06-2024 Influenza vaccination Influenza Vacc ine (#1) [facility] Start: 1993 Screening for malign ant neoplasm of breast Mammogram [facility] Healthcare Start: 1955 Screening for malign ant neoplasm of colon [facility] Immunizations Immunization Date Immunization Notes Care Provider Fa cility 07-20-2021 Prevnar 20 Sneha Coy Other [facility] 03-18-2019 influenza virus vaccine, unspecified formulation Sophia Mensah [employer] TECHNICIAN Work Phone: [facility] Healthcare Payers Date Payer Category Payer Medicare MEDICARE [id number] 2018 Other GENERIC OTHER Ut mber [id number] 2016 Unknown [id number] 1959 Medicare [id number] 1959 Unknown [id number] 1953 Unknown [id number] 1953 Unknown [id number] 1953 Unknown [id number] 1953 Unknown [id number] 1953 Unknown [id number] 1953 Unknown [id number] 1953 Unknown [id number] 9 Self-pay Self Pay [id number] Social History Date Type Detail Facility Unknown if ever smoked [facility] [employer] Other Start: 02-27-2023 End: 02-28-2024 Sex Assigned At [facility] Other Start: 1955 Sex Assigned At Female [facility] Start: 12-05-2022 End: 10-06-2023 Tobacco smoking status MDIS Never smoked tobacco (finding) [facility] Start: 12-05-2022 Tobacco use and exposure Smokeless tobacco non-user [facility] Start: 02-27-2023 End: 02-28-2024 History of Social function [facility] Start: 1955 Sex assigned at Not on file [facility] Start: 02-28-2024 Alcoholic beverage intake Current drinker of alcohol (finding) [facility] NEGATED: Highlighted rowStart: NINF History of tobacco use Passive smoker [facility] Clinical Notes 02-07-2022 to 02-28-2024 Sophia Mensah, NICHOLAS-LIGHT TECHNICIAN - 02/28/2024 9:05 AM EDT Note Date & Type Note Facility 02-28-2024 History of Presen t illness Narrative Skin Check Location: Patient requests a full body skin examination Dermatologic history: history of Actinic Keratosis Last visit: 1 year ago Established patient Lesions: Location: right back Duration: months Quality: itchy Modifying factors: rubs on clothing, aggravated by picking Associated symptoms: rough, scaly Treatments: none All pertinent medical history, medications, and allergies were reviewed. General Exam: alert, oriented to person, place, and time, normal affect, well appearing Unaccompanied Scalp, Examined , exam limited by hair Right leg Examined Head, Face Examined Left leg Examined Neck Examined Right foot Examined Chest Examined Left foot Examined Back Examined Buttocks Examined Abdomen Examined Digits,nails: Examined Right arm Examined Left arm Examined Lymphatics: Not examined Hands Examined 1. Melanocytic nevus of trunk Torso - Posterior (Back) Scattered benign appearing, regular brown to light brown melanocytic papules and macules with similar morphology Counseled regarding these benign growths. Rarely, a nevus can develop into malignant melanoma, so any changing nevi should be promptly re-evaluated. 2. Seborrheic keratosis Stuck on verrucous, variably pigmented papules and plaques. Patient was counseled regarding these benign growths. Removal is normally not necessary, but they may be removed if they are symptomatic or for cosmetic reasons. 3. Inflamed seborrheic keratosis Right Lower Back Inflamed seborrheic keratoses: pink and brown stuck on verrucous scaly papule with surrounding erythema and bloody crust. The patient was informed that symptomatic seborrheic keratoses are benign growths that become inflamed, itchy, tender, traumatized, caught on clothing, or bleed. Symptomatic lesions can be treated with cryotherapy or curretage. Thicker lesions treated with cryotherapy may require more than one treatment. The patient was instructed to notify the office if abnormal redness or tenderness develops at the treatment site. Cryotherapy today, see procedure note. Diagnosis: Inflamed seborrheic keratosis Indication: Inflamed Consent: Verbal consent was obtained and risks were discussed, including, but not limited to risks of scarring, darker or tank erector pigmentary changes, recurrence, incomplete removal and infection. Method: Liquid nitrogen was used to treat the lesion(s) with two 5-10 second freeze-thaw cycles Number of lesions treated: 1 Post-procedure instructions: Instructions were given orally and in writing. The office will be contacted if the lesion fails to resolve despite treatment, or if a side effect develops such as abnormal crusting, scabbing, redness or tenderness Cryotherapy, skin lesion - Right Lower Back 4. Lentigines (6) Chest (Upper Torso, Anterior), Head - Anterior (Face), Left Arm, Left Leg, Right Arm, Right Leg Scattered calderón macules in sun-exposed areas. The patient was informed that lentigines are benign pigmented lesions that occur on sun-exposed and sun-damaged skin. No treatment is necessary. Recommended regular use of broad spectrum sunscreen SPF 30 or higher 5. Capillary angioma (2) Generalized, Scalp Scattered covarrubias-red papule(s). The patient was informed that angiomas are benign growths on the the skin. No treatment is necessary. 6. Sebaceous hyperplasia Head - Anterior (Face) Small yellow papules with a central dell. Reassure, benign. Discussed these can be removed for a cosmetic fee with the hyfrecator if desired. Next Visit: 1 year documented in this encounter [facility] 06-04-2023 Evaluation note Encounter Date Diagnosis Assessment Notes May, Screening for colon cancer (ICD-10 - Z12.11) [facility] Other 08-29-2023 Evaluation note* Encounter Date Diagnosis Assessment Notes Treatment Notes Treatment Clinical Notes Dec, Medicare annual wellness visit, subsequent [...] D72.819) Chronic low WBC, will monitor levels. [facility] Other 04-20-2023 NoteCONSULTATION PROCEDURE DATE: 08/24/2022 TO: Sneha Cespedes M.D. PROCEDURE: Patient presents today for procedure [...] a marked reduction in pain symptoms post procedurally.[id number] Note CONSULTATION PROCEDURE DATE: 02/07/2022 PREOPERATIVE DIAGNOSIS: [...] complication, will be followed up in the office.[facility] 02-07-2022 NoteCONSULTATION CONSULTATION DATE: 02/07/2022 CHIEF COMPLAINT: Right hand, [...] and would like to proceed. CC: Sneha Cespedes M.D.[facility] noteNo [email or web address] Other Evaluation note* Diagnosis Onset Date Resolution Status Essential (primary) hypertension [facility] Work Phone: Evaluation note* Diagnosis Onset Date Resolution Status Essential (primary) hypertension acute Viral URI with cough [facility] Work Phone: Evaluation note* Diagnosis Melanocytic nevus of trunk Benign neoplasm of skin of trunk, except scrotum Seborrheic keratosis Inflamed seborrheic keratosis Lentigines Capillary angioma Nevus, non-neoplastic Sebaceous hyperplasia [facility] Diagnosis Onset Date Resolution Status Essential (primary) hypertension acute Hormonal disorder acute Leukopenia acute [facility] Work Phone: History general Narrative - Reported* Type Description Date Medical History Leukopenia, unspecified type Medical History Hormonal disorder Medical History Other specified hypothyroidism Medical History Essential (primary) hypertension Medical History Congestion of nasal sinus Surgical History Appendectomy Surgical History Colonoscopy Surgical History Epicondylectomy Right Surgical History Tonsillectomy and adenoidectomy Surgical History R ring finger trigger release Surgical History R lateral epicondylitis Hospitalization History see surgical hx [employer] Other Summary Purpose Family History Relationship Condition Age at Onset Recorded Date/T rachel father Malignant neoplasm Unknown Leukemia Unknown Unknown grandparent Unknown History of malignant neoplasm of prostate Unknown Malignant neoplasm Unknown Not Specified Unknown Heart disease Unknown History of ovarian cancer Unknown Relationship Condition Age at Onset Recorded Date/T rachel father Malignant neoplasm Unknown Leukemia Unknown Unknown grandparent Unknown History of malignant neoplasm of prostate Unknown Malignant neoplasm Unknown mother Unknown Heart disease Unknown History of ovarian cancer Unknown Advance Directives Advance Directive Response Recorded Date/ Time Advance Directives No July 24 024 8:58am Reason for Referral Reason colon cancer screeni ng Diagnosis 1 Screening for colon cancer (Z12.11) Referral Organization [facility] Referring Provider First Name Sneha Referring Provider Last Name Coy Referring Provider Specialty Family [facility] Referred Organization [facility] Referred Provider Jake Martinez Referred Address [address] [place] [phone] Referred Provider Specialty Surgery Referral Priority Routine [...] Essential (primary) hypertension Viral URI with cough Chief Complaint Check Up Reason for Visit Essential (primary) hypertension Hormonal disorder Leukopenia Additional Source Comments INFORMATION SOURCE (unrecogn ized section and content) DATE CREATED AUTHOR 05/29/2021 [facility] DATE CREATED AUTHOR AUTHOR'S ORGANIZ ATION 08/29/2022 [facility] DATE CREATED AUTHOR AUTHOR'S ORGANIZ ATION 06/06/2023 [facility] DATE CREATED AUTHOR AUTHOR'S ORGANIZ ATION 02/29/2024 [facility] EPIC REASON FOR VISIT (unrecogniz ed section and content) Reason Comments Skin Check Care Teams (unrecognized sec tion and content) Team Status: Active Member Role Status Dates Sneha Cespedes MD Primary Care Provider Active Team Status: Active Member Role Status Dates Sneha Cespedes MD Primary Care Provide r, Attending Provider Active Start: January 01, 2024 Team Status: Inactive Member Role Status Dates Sneha Cespedes MD Primary Care Provide r, Attending Provider Active Start: March 04, 2024 End: March 04, 2024 Team Status: Active Member Role Status Dates Sneha Cespedes MD Primary Care Provider Active Team Status: Inactive Member Role Status Dates Sneha Cespedes MD Primary Care Provide r, Attending Provider Active Start: July 25, 2023 End: July 25, 2023 Team Status: Inactive Member Role Status Dates Sneha Cespedes MD Primary Care Provider Active Start: October 06, 2023 End: October 06, 2023 Ebonie Monreal APRN Attending Provider Active Start: October 06, 2023 End: October 06, 2023 Team Status: Inactive Member Role Status Dates Sneha Cespedes MD Primary Care Provide r, Attending Provider Active Start: October 10, 2023 End: October 10, 2023 Verification Clerk Relationship Specialty Start Date End Date Sneha Cespedes MD [address] [place] [address] PCP - General Family Medicine 01/18/23 Verification Clerk Relationship Specialty Start Date End Date Sneha Cespedes MD [address] [place] [address] PCP - General Family Medicine 01/18/23 Team Status: Active Member Role Status Dates Sneha Cespedes MD Primary Care Provide r, Attending Provider Active Start: Salley 27th, 2024 Team Status: Inactive Member Role Status Dates Sneha Cespedes MD Primary Care Provide r, Attending Provider Active Start: March 04, 2024 End: March 04, 2024 Goals (unrecognized section and content) Goals may [...] BE BASED ON THE PRIMARY CLINICAL RECORDS. [facility] [employer] provides no warranty or guarantee of the accuracy or completeness of information in this document.
[2024-03-21 10:41] LABS: Basophils Percent Auto 0.4 % (0.2-2.0); Eosinophils Absolute Auto 0.2 10^3/uL (0.0-0.7); Eosinophils Percent Auto 3.8 % (0.9-7.0); Hematocrit 46.2 % (36.0-48.0); Hemoglobin 15.6 g/dL (12.0-16.0); Immature Granulocytes Abs Auto 0.01 10^3/uL (0.00-0.03); Immature Granulocytes Pct Auto 0.2 % (0.0-0.5); Lymphocytes Absolute Auto 1.2 10^3/uL (1.2-3.8); Lymphocytes Percent Auto 25.5 % (20.5-60.0); Mean Corpuscular HGB Conc 33.8 g/dL (29.9-35.2); Mean Corpuscular Hemoglobin 32.6 pg (26.7-34.0); Mean Corpuscular Volume 96.5 fL (81.0-99.0); Mean Platelet Volume 10.1 fL (9.5-13.5); Monocytes Absolute Auto 0.4 10^3/uL (0.3-0.8); Monocytes Percent Auto 7.7 % (1.7-12.0); Neutrophils Percent Auto 62.4 % (43.0-75.0); Platelet Count 216 10^3/uL (150-450); Red Blood Count 4.79 10^6/uL (4.20-5.40); Red Cell Distribution Width 12.5 % (11.0-15.0); White Blood Count 4.8 10^3/uL (4.0-11.0)
[2024-03-25 22:09] LABS: Free Testosterone(Direct) 0.7 pg/mL (0.0-4.2); Testosterone 49 ng/dL (3-67)
== END 2024-03-21 09:39 | disposition home or self-care (01) ==
LOC: LAB 09:42
PROVIDERS: PCP Family Medicine; Visit Provider Family Medicine
DX: E34.9 Endocrine disorder, unspecified (principal); D72.819 Decreased white blood cell count, unspecified
CPT/HCPCS: 36415; 84402; 84403; 85025

== ENCOUNTER 2024-06-23 09:38 | Outpatient (OUT) | payer MEDICARE, OTHER, SELFPAY ==
--- OUTSIDE RECORDS SUMMARY | 2024-06-23 10:02 | XMS_ITS | CCD ---
Author Organization [facility] Care Team Providers Care Geospatial Engineer Name Role Phone COY, DR SNEHA Soto Admitting Unavailable CESPEDES, DR SNEHA Soto Attending Unavailable COY, DR SNEHA Soto Primary Care Unavailable MORE, DR GOVIND Coleman Consulting Unavailable CESPEDES, DR SNEHA Soto Consulting Unavailable KATH ., DR JAZZMINE Fleming Admitting Unavailable STOCKTON ., DR JAZZMINE Fleming Attending Unavailable CESPEDES, DR SNEHA Soto Primary Care Unavailable STOCKTON ., DR JAZZMINE Fleming Consulting Unavailable LAKSHMIPATHY ., NARNELIDA Admitting Brandie vailable LAKSHMIPATHzOiel ., GURINDER Attending Brandie vailable COY, DR SNEHA Soto Primary Care Unavailable LAKSHMIPATHY ., GURINDER Consulting Brandie vailable COY, DR SNEHA Soto Admitting Unavailable CESPEDES, DR SNEHA Soto Attending Unavailable CESPEDES, DR SNEHA Soto Primary Care Unavailable CESPEDES, DR SNEHA Soto Consulting Unavailable CESPEDES, DR SNEHA Soto Admitting Unavailable CESPEDES, DR SNEHA Soto Attending Unavailable CESPEDES, DR SNEHA Soto Primary Care Unavailable CESPEDES, DR SNEHA Soto Consulting Unavailable Coy, Sneha Unavailable Sneha Cespedes MD Primary Care Provider [phone] SOPHIA MENSAH Attending Unavailable Allergies Allergy Classification Reported Allergen(s) Allergy Type Date of Onset Reaction(s) Facility (5 sources) Alendronate Drug Allergy Unknown Expanite Other Medications Current Medications Medication Drug Class(es) [...] 9:55pm Start: 12-30-2021 take 1 capsule by [facility] every twenty-four hours amLODIPine Besy-Benazepril HCl 5-10 MG 1 capsule Orally daily for 90 days Dec, Active take 1 capsule by [facility] in the morning amLODIPine-benazepril (Lotrel) 5-10 MG capsule Take 1 capsule by mouth in the morning. Active amLODIPine Besy-Benazepril HCl 5-10MG (2 sources) Start: 12-30-2021 take 5-10 mg by mouth once daily amLODIPine Besy-Benazepril HCl 5-10MG amLODIPine Besy-Benazepril HCl 5-10MG, 1 (one) Capsule daily # 90, 12/30/2021, Ref. x3. Active Oral daily for 0 *Pick strength-form from oNoise for eRX* Dec, Active Calcium (8 sources) Phosphate Binder, Calcium Start: 07-09-2014 Calcium 600 600MG Calcium 600 600MG, # 0.00, 07/09/2014, No Refill. Active for 0 *Pick strength-form from oNoise for eRX* Jul, Active calcium 200 MG [...] in AM. 60 mL 11 02/27/2023 Active Srxnpd-Sjpcxeygz-Bzhnhfvf-MS M (GLUCOSAMINE CHONDROITIN JOINT PO) (3 sources) [...] No Refill. Active for 0 *Reorder from oNoise for eRx and Interaction Alerts* Jul, Active VITAMIN D CALCIUM - this medication is not being screened (5 sources) Start: 07-09-2014 VITAMIN D CALCIUM - this medication is not being screened VITAMIN D CALCIUM - this medication is not being screened( ) Active -Hx Entry for 0 *Reorder from oNoise for eRx and Interaction Alerts* Jul, Active [...] Test Name Value Interpretation Reference Range Facility Reminderson 06-02-2024 Reminders Reminders --- From: Claudine Anusha X To: - [employer]; Sent: 06/02/2024 14:27:46 EST Show up: 07/05/2025 14:27:00 EST Subject: Ambulatory Reminder Reminder/Recall call patient to set up 10 yr screening colonoscopy with Dr Martinez. mxs Normal [facility] No Panel Informationon 02-27 [facility] Basophils Auto (Bld) [#/Vol] on 01-01-2024 Basophils (Bld) [#/Vol] 0.0 10 3/uL 0.0-0.1 [facility] Basophils/100 WBC Auto (Bld) on 01-01-2024 Basophils/100 WBC (Bld) 0.9 % 0.2-2.0 [facility] Cholesterol in LDL Calc [Mas s/Vol]on 01-01-2024 Cholesterol in LDL [Mass/Vol] 101.0 mg/dL [facility] Comment on above: <100 mg/dl [id number] 0-129 mg/dl NEAR OR ABOVE [id number] mg/dl BORDERLINE [id number] mg/dl HIGH>190 mg/dl VERY HIGH Cholesterol in VLDL Calc [Ma ss/Vol]on 01-01-2024 Cholesterol in VLDL [Mass/Vol] 9.4 mg/dL [facility] Eosinophils/100 WBC Auto (Bl d)on 01-01-2024 Eosinophils/100 WBC (Bld) 10.3 % High 0.9-7.0 [facility] Erythrocyte distribution wid th Auto (RBC) [Ratio]on 01-01-2024 Erythrocyte distribution width (RBC) [Ratio] 12.7 % 11.0-15.0 [facility] Estimated glomerular filtrat ion rate (GFR) non- Americanon 01-01-2024 GFR/1.73 sq M.predicted among non-blacks MDRD (S/P/Bld) [Vol rate/Area] mL/min/{1.73_m2} >=60 [facility] Free testosterone measuremen t by LC-MS/MSon 01-01-2024 Testosterone Free [Mass/Vol] 2.1 pg/mL 0.0-4.2 [facility] Comment on above: Performed at: - [address] [id number] Director: Catrachito Moreland PhD, Phone: [phone] at: BN - [facility] [address] [id number] Director: Topher Haynes MD, Phone: [phone] Globulin Calc (S) [Mass/Vol] on 01-01-2024 Globulin (S) [Mass/Vol] 3.0 g/dL [facility] Glucose mean value [Mass/vol ume] in Blood Estimated from glycated hemoglobinon 01-01-2024 Average glucose Estimated from glycated hemoglobin (Bld) [Mass/Vol] 103 mg/dL [facility] Hematocrit Auto (Bld) [Volum e fraction]on 01-01-2024 Hematocrit (Bld) [Volume fraction] 44.7 % 36.0-48.0 [facility] Hemoglobin [Mass/volume] in Bloodon 01-01-2024 Hemoglobin (Bld) [Mass/Vol] 14.8 g/dL 12.0-16.0 [facility] Laboratory - Chemistry and C hemistry - challengeon 01-01-2024 Albumin [Mass/Vol] 3.8 g/dL 3.4-5.0 [facility] ALP [Catalytic activity/Vol] 52 U/L 46-116 [facility] ALT [Catalytic activity/Vol] 37 U/L 14-59 [facility] AST [Catalytic activity/Vol] 28 U/L 15-37 [facility] Bilirubin [Mass/Vol] 1.0 mg/dL 0.2-1.0 [facility] Calcium [Mass/Vol] 8.8 mg/dL 8.5-10.1 [facility] Chloride [Moles/Vol] 103 mmol/L 98-107 [facility] Cholesterol [Mass/Vol] 202 mg/dL High <=200 [facility] Cholesterol in HDL [Mass/Vol] 92 mg/dL High 40-60 [facility] Comment on above: > or =60 mg/dl - LOW CARDIOVASCULAR RISK<40 mg/dl - HIGH CARDIOVASCULAR RISK CO2 [Moles/Vol] 31.1 mmol/L 21.0-32.0 [facility] Creatinine [Mass/Vol] 0.87 mg/dL 0.55-1.02 [facility] GFR/1.73 sq M.predicted MDRD (S/P/Bld) [Vol rate/Area] mL/min/{1.73_m2} >=60 [facility] Glucose [Mass/Vol] 93 mg/dL 74-106 [facility] Potassium [Moles/Vol] 3.9 mmol/L 3.5-5.1 [facility] Protein [Mass/Vol] 6.8 g/dL 6.4-8.2 [facility] Sodium [Moles/Vol] 140 mmol/L 136-145 [facility] Triglyceride [Mass/Vol] 47 mg/dL <=150 [facility] TSH Qn 1.677 m[IU]/L 0.358-3.740 [facility] Urea nitrogen [Mass/Vol] 25.0 mg/dL High 7.0-18.0 [facility] Urea nitrogen/Creatinine [Mass ratio] 28.7 mg/mg [facility] Laboratory - Hematology and Cell countson 01-01-2024 HbA1c (Bld) [Mass fraction] 5.2 % 4.5-6.2 [facility] Comment on above: ADA RECOMMENDED LIMI T 4.0 - 6.0ADA THERAPEUTIC TARGET < 7.0ACTION SUGGESTED> 7.0 Immature granulocytes/100 WBC (Bld) 0.3 % 0.0-0.5 [facility] Leukocytes [#/volume] correc pacheco for nucleated erythrocytes in Blood by Automated counon 01-01-2024 WBC corrected for nucl RBC Auto (Bld) [#/Vol] 3.5 10 3/uL Low 4.0-11.0 [facility] Lymphocytes Auto (Bld) [#/Vo l]on 01-01-2024 Lymphocytes (Bld) [#/Vol] 1.1 10 3/uL Low 1.2-3.8 [facility] Lymphocytes/100 WBC Auto (Bl d)on 01-01-2024 Lymphocytes/100 WBC (Bld) 31.4 % 20.5-60.0 [facility] MCH Auto (RBC) [Entitic mass ]on 01-01-2024 MCH (RBC) [Entitic mass] 32.2 pg 26.7-34.0 [facility] MCHC Auto (RBC) [Mass/Vol]on 01-01-2024 MCHC (RBC) [Mass/Vol] 33.1 g/dL 29.9-35.2 [facility] MCV Auto (RBC) [Entitic vol] on 01-01-2024 MCV (RBC) [Entitic vol] 97.2 fL 81.0-99.0 [facility] Monocytes Auto (Bld) [#/Vol] on 01-01-2024 Monocytes (Bld) [#/Vol] 0.3 10 3/uL 0.3-0.8 [facility] Monocytes/100 WBC Auto (Bld) on 01-01-2024 Monocytes/100 WBC (Bld) 8.0 % 1.7-12.0 [facility] Neutrophils Auto (Bld) [#/Vo l]on 01-01-2024 Neutrophils (Bld) [#/Vol] 1.7 10 3/uL 1.4-6.5 [facility] Neutrophils/100 WBC Auto (Bl d)on 01-01-2024 Neutrophils/100 WBC (Bld) 49.1 % 43.0-75.0 [facility] No Panel Informationon 12-31 25-Hydroxy Vitamin D Total 126.7 ng/mL [facility] Comment on above: <20 ng/mL Vit D defi cient20-<30 ng/mL Vit D xkbymrgiiylr23-255 ng/mL Vit D sufficient>100 ng/mL Potential Toxicity Dehydroepiandrosterone Sulfate 81.6 ug/dL 20.4-186.6 [facility] Eosinophils # (Auto) 0.4 10 3/uL 0.0-0.7 [facility] Immature Granulocyte # (Auto) 0.01 10 3/uL 0.00-0.03 [facility] Sex Hormone Binding Globulin 93.8 nmol/L 17.3-125.0 [facility] Comment on above: Performed at: - [address] [id number] Director: Catrachito Moreland PhD, Phone: [phone] Testosterone Level 236 ng/dL Abnormal 3-67 [facility] Platelet mean volume Auto (B ld) [Entitic vol]on 01-01-2024 Platelet mean volume (Bld) [Entitic vol] 9.8 fL 9.5-13.5 [facility] Platelets Auto (Bld) [#/Vol] on 01-01-2024 Platelets (Bld) [#/Vol] 183 10 3/uL 150-450 [facility] RBC Auto (Bld) [#/Vol]on RBC (Bld) [#/Vol] 4.60 10 6/uL 4.20-5.40 [facility] Serum estrone measurementon 01-01-2024 E1 [Mass/Vol] 35 pg/mL 0-125 [facility] Comment on above: Range Adult (Premeno pausal) 27 - 231 Menstrual Cycle (1-10 days) 19 - 149 Menstrual Cycle (11-20 days) 32 - 176 Menstrual Cycle (21-30 days) 37 - 200 Adult (Postmenopausal) 0 - 125Performed at: - [facility] [address] [id number] Director: Topher Haynes MD, Phone: [phone] Serum or plasma albumin/glob ulin mass ratioon 01-01-2024 Albumin/Globulin [Mass ratio] 1.3 {ratio} [facility] Serum or plasma anion gap de terminationon 01-01-2024 Anion gap [Moles/Vol] 9.8 mmol/L [facility] Serum or plasma estradiol (E 2) measurement (mass/volume)on 01-01-2024 E2 [Mass/Vol] 13.6 pg/mL 0.0-54.7 [facility] Comment on above: Adult Female Range F ollicular phase 12.5 - 166.0 Ovulation phase 85.8 - 498.0 Luteal phase 43.8 - 211.0 Postmenopausal <6.0 - 54.7 1st trimester 215.0 - >4300.0Roche ECLIA methodology Serum or plasma progesterone measurement (mass/volume)on 01-01-2024 Progesterone [Mass/Vol] 1.4 ng/mL . [facility] Comment on above: Follicular phase 0.1 - 0.9 Luteal phase 1.8 - 23.9 Ovulation phase 0.1 - 12.0 First trimester 11.0 - 44.3 Second trimester 25.4 - 83.3 Third trimester 58.7 - 214.0 Postmenopausal 0.0 - 0.1 Serum or plasma total choles terol/high density lipoprotein (HDL) cholesterol mass curt 01-01-2024 Cholesterol.total/Choleste rol in HDL [Mass ratio] 2.2 {ratio} [facility] Comment on above: 3.3 - 4.4 LOW RISK4. 4 - 7.1 AVERAGE RISK7.1 - 11.0 MODERATE RISK>11.0 HIGH RISK Physician Referralon 024 Physician Referral [id number] Normal [facility] ESTRONEon 03-22-2022 Estrone, Serum <6 Normal 0-125 [facility] Comment on above: Result Comment: Rang e Adult (Premenopausal) 27 - 231 Menstrual Cycle (1-10 days) 19 - 149 Menstrual Cycle (11-20 days) 32 - 176 Menstrual Cycle (21-30 days) 37 - 200 Adult (Postmenopausal) 0 - 125 Performed By: #### E STRONE #### [facility] [address] [place] [address] Dr. Josse Gant TESTOSTERONE, FREE,DIRECT, T OTALolarry 03-22-2022 Free Testosterone(Direct) 0.5 pg/mL Normal 0.0-4.2 [facility] Comment on above: Result Comment: Perf ormed at: BN Performed By: #### T ESTFRD #### [facility] [address] [address] [address] Josse Gant Testosterone [Mass/Vol] 60 ng/dL Normal 3-67 [facility] Comment on above: Result Comment: Perf ormed at: CB Performed By: #### T ESTFRD #### [facility] [address] [place] [address] Dr. Josse Gant VIT D 1 25 DIHYDROXYon 03-20 Calcitriol(1,25 di-OH Vit D) 55.0 pg/mL Normal 24.8-81.5 [facility] Comment on above: Performed By: #### V [id number] #### [facility] [address] [place] [address] Dr. Josse Gant CORTISOLon 03-18-2022 Cortisol 10.6 ug/dL Normal [facility] Comment on above: Result Comment: Patricio isol AM 6.2 - 19.4 Cortisol PM 2.3 - 11.9 Performed By: #### T SH #### [facility] [address] [place] [address] Dr. Josse Gant DHEA-SULFATEon 03-18-2022 DHEA-Sulfate 32.3 ug/dL Normal 20.4-186.6 [facility] Comment on above: Performed By: #### T SH #### [facility] [address] [place] [address] Dr. Josse Gant ESTRADIOLon 03-18-2022 Estradiol <5.0 Normal [facility] Comment on above: Result Comment: Adul t Female: Follicular phase 12.5 - 166.0 Ovulation phase 85.8 - 498.0 Luteal phase 43.8 - 211.0 Postmenopausal <6.0 - 54.7 1st trimester 215.0 - >4300.0 Kim ECLIA methodology Performed By: #### E STRADI #### [facility] [address] [place] [address] Dr. Josse Gant PROGESTERONEon 03-18-2022 Progesterone 0.3 ng/mL Normal [facility] Comment on above: Result Comment: Foll icular phase 0.1 - 0.9 Luteal phase 1.8 - 23.9 Ovulation phase 0.1 - 12.0 First trimester 11.0 - 44.3 Second trimester 25.4 - 83.3 Third trimester 58.7 - 214.0 Postmenopausal 0.0 - 0.1 Performed By: #### T SH #### [facility] [address] [place] [address] Dr. Josse Gant SEX HORMONE-BINDING GLOBULIN on 03-18-2022 Sex Horm Binding Glob, Serum 107.0 nmol/L Normal 17.3-125.0 [facility] Comment on above: Performed By: #### S EXHBG #### [facility] [address] [place] [address] Dr. Josse Gant CBC AUTO DIFFon 03-17-2022 BASO # 0.0 103/ul Normal 0.0-0.1 [facility] Comment on above: Performed By: #### C BC #### [facility] [address] [place] [address] Dr. Josse Gant Basophils/100 WBC (Bld) 0.5 % Normal 0.2-2.0 [facility] Comment on above: Performed By: #### C BC #### [facility] [address] [place] [address] Dr. Josse Gant EO # 0.2 103/ul Normal 0.0-0.7 [facility] Comment on above: Performed By: #### C BC #### [facility] [address] [place] [address] Dr. Josse Gant Eosinophils/100 WBC (Bld) 5.7 % Normal 0.9-7.0 [facility] Comment on above: Performed By: #### C BC #### [facility] [address] [place] [address] Dr. Josse Gant Erythrocyte distribution width (RBC) [Ratio] 12.7 % Normal 11.0-15.0 [facility] Comment on above: Performed By: #### C BC #### [facility] [address] [place] [address] Dr. Josse Gant Hematocrit (Bld) [Volume fraction] 44.7 % Normal 36.0-48.0 [facility] Comment on above: Performed By: #### C BC #### [facility] [address] [place] [address] Dr. Josse Gant Hemoglobin (Bld) [Mass/Vol] 15.0 g/dL Normal 12.0-16.0 [facility] Comment on above: Performed By: #### C BC #### [facility] [address] [address] [address] Josse Gant IG # 0.00 10e3/ul Normal 0.00-0.03 [facility] Comment on above: Performed By: #### C BC #### [facility] [address] [place] [address] Dr. Josse Gant IG % 0.0 % Normal 0.0-0.5 [facility] Comment on above: Performed By: #### C BC #### [facility] [address] [place] [address] Dr. Josse Gant LYMPH # 1.1 103/ul Critically low 1.2-3.8 [facility] Comment on above: Performed By: #### C BC #### [facility] [address] [place] [address] Dr. Josse Gant Lymphocytes/100 WBC (Bld) 28.4 % Normal 20.5-60.0 [facility] Comment on above: Performed By: #### C BC #### [facility] [address] [place] [address] Dr. Josse Gant MANUAL DIFF REQ NO Normal [facility] Comment on above: Performed By: #### C BC #### [facility] [address] [place] [address] Dr. Josse Gant MCH (RBC) [Entitic mass] 31.8 pg Normal 26.7-34.0 [facility] Comment on above: Performed By: #### C BC #### [facility] [address] [place] [address] Dr. Josse Gant MCHC (RBC) [Mass/Vol] 33.6 g/dL Normal 29.9-35.2 [facility] Comment on above: Performed By: #### C BC #### [facility] [address] [place] [address] Dr. Josse Gant MCV (RBC) [Entitic vol] 94.9 fL Normal 81.0-99.0 [facility] Comment on above: Performed By: #### C BC #### [facility] [address] [place] [address] Dr. Josse Gant MONO # 0.3 103/ul Normal 0.3-0.8 [facility] Comment on above: Performed By: #### C BC #### [facility] [address] [place] [address] Dr. Josse Gant Monocytes/100 WBC (Bld) 8.8 % Normal 1.7-12.0 [facility] Comment on above: Performed By: #### C BC #### [facility] [address] [place] [address] Dr. Josse Gant NEUT # 2.2 103/ul Normal 1.4-6.5 [facility] Comment on above: Performed By: #### C BC #### [facility] [address] [place] [address] Dr. Josse Gant Neutrophils/100 WBC (Bld) 56.6 % Normal 43.0-75.0 [facility] Comment on above: Performed By: #### C BC #### [facility] [address] [place] [address] Dr. Josse Gant Platelet mean volume (Bld) [Entitic vol] 9.2 fL Critically low 9.5-13.5 [facility] Comment on above: Performed By: #### C BC #### [facility] [address] [place] [address] Dr. Josse Gant PLT 213 103/ul Normal 150-450 [facility] Comment on above: Performed By: #### C BC #### [facility] [address] [place] [address] Dr. Josse Gant RBC 4.71 106/ul Normal 4.20-5.40 [facility] Comment on above: Performed By: #### C BC #### [facility] [address] [place] [address] Dr. Josse Gant WBC 3.9 103/ul Critically low 4.0-11.0 [facility] Comment on above: Performed By: #### C BC #### [facility] [address] [place] [address] Dr. Josse Gant FREE T4on 03-17-2022 Free T4 [Mass/Vol] 0.90 ng/dL Normal 0.76-1.46 [facility] Comment on above: Performed By: #### T SH #### [facility] [address] [place] [address] Dr. Josse Gant TSHon 03-17-2022 TSH 1.332 uIU/mL Normal 0.358-3.740 [facility] Comment on above: Performed By: #### T SH #### [facility] [address] [place] [address] Dr. Josse Gant CBC AUTO DIFFon 01-03-2022 BASO # 0.0 103/ul Normal 0.0-0.1 [facility] Comment on above: Performed By: #### C BC #### [facility] [address] [place] [address] Dr. Josse Gant Basophils/100 WBC (Bld) 0.8 % Normal 0.2-2.0 [facility] Comment on above: Performed By: #### C BC #### [facility] [address] [place] [address] Dr. Josse Gant EO # 0.3 103/ul Normal 0.0-0.7 [facility] Comment on above: Performed By: #### C BC #### [facility] [address] [place] [address] Dr. Josse Gant Eosinophils/100 WBC (Bld) 7.3 % Critically high 0.9-7 .0 [facility] Comment on above: Performed By: #### C BC #### [facility] [address] [place] [address] Dr. Josse Gant Erythrocyte distribution width (RBC) [Ratio] 12.6 % Normal 11.0-15.0 [facility] Comment on above: Performed By: #### C BC #### [facility] [address] [place] [address] Dr. Josse Gant Hematocrit (Bld) [Volume fraction] 45.3 % Normal 36.0-48.0 [facility] Comment on above: Performed By: #### C BC #### [facility] [address] [place] [address] Dr. Josse Gant Hemoglobin (Bld) [Mass/Vol] 14.7 g/dL Normal 12.0-16.0 [facility] Comment on above: Performed By: #### C BC #### [facility] [address] [place] [address] Dr. Josse Gant IG # 0.01 10e3/ul Normal 0.00-0.03 [facility] Comment on above: Performed By: #### C BC #### [facility] [address] [place] [address] Dr. Josse Gant IG % 0.3 % Normal 0.0-0.5 [facility] Comment on above: Performed By: #### C BC #### [facility] [address] [place] [address] Dr. Josse Gant LYMPH # 1.5 103/ul Normal 1.2-3.8 [facility] Comment on above: Performed By: #### C BC #### [facility] [address] [place] [address] Dr. Josse Gant Lymphocytes/100 WBC (Bld) 38.8 % Normal 20.5-60.0 [facility] Comment on above: Performed By: #### C BC #### [facility] [address] [place] [address] Dr. Josse Gant MANUAL DIFF REQ NO Normal [facility] Comment on above: Performed By: #### C BC #### [facility] [address] [place] [address] Dr. Josse Gant MCH (RBC) [Entitic mass] 30.8 pg Normal 26.7-34.0 [facility] Comment on above: Performed By: #### C BC #### [facility] [address] [place] [address] Dr. Josse Gant MCHC (RBC) [Mass/Vol] 32.5 g/dL Normal 29.9-35.2 [facility] Comment on above: Performed By: #### C BC #### [facility] [address] [address] [address] Josse Gant MCV (RBC) [Entitic vol] 95.0 fL Normal 81.0-99.0 [facility] Comment on above: Performed By: #### C BC #### [facility] [address] [address] [address] Josse Gant MONO # 0.4 103/ul Normal 0.3-0.8 [facility] Comment on above: Performed By: #### C BC #### [facility] [address] [place] [address] Dr. Josse Gant Monocytes/100 WBC (Bld) 9.4 % Normal 1.7-12.0 [facility] Comment on above: Performed By: #### C BC #### [facility] [address] [place] [address] Dr. Josse Gant NEUT # 1.7 103/ul Normal 1.4-6.5 [facility] Comment on above: Performed By: #### C BC #### [facility] [address] [place] [address] Dr. Josse Gant Neutrophils/100 WBC (Bld) 43.4 % Normal 43.0-75.0 [facility] Comment on above: Performed By: #### C BC #### [facility] [address] [place] [address] Dr. Josse Gant Platelet mean volume (Bld) [Entitic vol] 9.6 fL Normal 9.5-13.5 [facility] Comment on above: Performed By: #### C BC #### [facility] [address] [place] [address] Dr. Josse Gant PLT 190 103/ul Normal 150-450 [facility] Comment on above: Performed By: #### C BC #### [facility] [address] [place] [address] Dr. Josse Gant RBC 4.77 106/ul Normal 4.20-5.40 [facility] Comment on above: Performed By: #### C BC #### [facility] [address] [address] [address] Josse Gant WBC 3.8 103/ul Critically low 4.0-11.[address] [facility] Comment on above: Performed By: #### C BC #### [facility] [address] [address] [address] Josse Gant LIPID PROFILEon 01-03-2022 CHOL-HDL RATIO NORM SEE BELOW Normal [facility] Comment on above: Result Comment: 3.3 - 4.4 LOW RISK 4.4 - 7.1 AVERAGE RISK 7.1 - 11.0 MODERATE RISK >11.0 HIGH RISK Performed By: #### L IPID, CMP #### [facility] [address] [address] [address] Josse Gant Cholesterol [Mass/Vol] 222 mg/dL Critically high <=200 [facility] Comment on above: Performed By: #### L IPID, CMP #### [facility] [address] [place] [address] Dr[address] Josse Gant Cholesterol in HDL [Mass/Vol] 91 mg/dL Critically high 40-60 [facility] Comment on above: Performed By: #### L IPID, CMP #### [facility] [address] [address] [address] Josse Gant Cholesterol in LDL [Mass/Vol] 115.4 mg/dL Normal [facility] Comment on above: Performed By: #### L IPID, CMP #### [facility] [address] [address] [address] Josse Gant Cholesterol.total/Choleste rol in HDL [Mass ratio] 2.4 {ratio} Normal [facility] Comment on above: Performed By: #### L IPID, CMP #### [facility] [address] [address] [address] Josse Gant HDL NORMAL > or = 60 mg/dl - LOW CARDIOVASCULAR RISK <40 mg/dl - HIGH CARDIOVASCULAR RISK Normal [facility] Comment on above: Performed By: #### L IPID, CMP #### [facility] [address] [address] [address] Josse Gant LDL CALC NORMAL SEE BELOW Normal [facility] Comment on above: Result Comment: <100 mg/dl OPTIMAL 100 - 129 mg/dl NEAR OR ABOVE OPTIMAL 130 - 159 mg/dl BORDERLINE HIGH 160 - 189 mg/dl HIGH >190 mg/dl VERY HIGH Performed By: #### L IPID, CMP #### [facility] [address] [address] [address] Josse Gant Triglyceride [Mass/Vol] 78 mg/dL Normal <=[address] [facility] Comment on above: Performed By: #### L IPID, CMP #### [facility] [address] [address] [address] Josse Gant VLDL CALC 15.6 mg/dL Normal [facility] Comment on above: Performed By: #### L IPID, CMP #### [facility] [address] [place] [address] Dr. Josse Gant PROF 14(COMP METB)on 022 Albumin [Mass/Vol] 3.9 g/dL Normal 3.4-5.0 [facility] Comment on above: Performed By: #### L IPID, CMP #### [facility] [address] [address] [address] Josse Gant Albumin/Globulin [Mass ratio] 1.3 {ratio} Normal [facility] Comment on above: Performed By: #### L IPID, CMP #### [facility] [address] [place] [address] Dr. Josse Gant ALP [Catalytic activity/Vol] 53 U/L Normal 46-116 [facility] Comment on above: Performed By: #### L IPID, CMP #### [facility] [address] [address] [address] Josse Gant ALT [Catalytic activity/Vol] 39 U/L Normal 14-59 [facility] Comment on above: Performed By: #### L IPID, CMP #### [facility] [address] [address] [address] Josse Gant Anion gap [Moles/Vol] 11.2 mmol/L Normal [facility] Comment on above: Performed By: #### L IPID, CMP #### [facility] [address] [address] [address] Josse Gant AST [Catalytic activity/Vol] 24 U/L Normal 15-37 [facility] Comment on above: Performed By: #### L IPID, CMP #### [facility] [address] [address] [address] Josse Gant Bilirubin [Mass/Vol] 0.9 mg/dL Normal 0.2-1.0 [facility] Comment on above: Performed By: #### L IPID, CMP #### [facility] [address] [address] [address] Josse Gant Calcium [Mass/Vol] 8.8 mg/dL Normal 8.5-10.1 [facility] Comment on above: Performed By: #### L IPID, CMP #### [facility] [address] [place] [address] Dr. Josse Gant Chloride [Moles/Vol] 102 mmol/L Normal 98-107 [facility] Comment on above: Performed By: #### L IPID, CMP #### [facility] [address] [address] [address] Josse Gant CO2 [Moles/Vol] 32.4 mmol/L Critically high 21.0-32.0 [facility] Comment on above: Performed By: #### L IPID, CMP #### [facility] [address] [address] [address] Josse Gant Creatinine [Mass/Vol] 0.83 mg/dL Normal 0.55-1.02 [facility] Comment on above: Performed By: #### L IPID, CMP #### [facility] [address] [address] [address] Josse Gant EGFR-AF GUYANESE >60 Normal >=60 [facility] Comment on above: Performed By: #### L IPID, CMP #### [facility] [address] [address] [address] Josse Gant EGFR-NON AF GUYANESE >60 Normal >=60 [facility] Comment on above: Performed By: #### L IPID, CMP #### [facility] [address] [address] [address] Josse Gnat Globulin (S) [Mass/Vol] 3.1 g/dL Normal T [facility] Comment on above: Performed By: #### L IPID, CMP #### [facility] [address] [address] [address] Josse Gant Glucose [Mass/Vol] 103 mg/dL Normal 74-106 [facility] Comment on above: Performed By: #### L IPID, CMP #### [facility] [address] [address] [address] Josse Gant Potassium [Moles/Vol] 4.6 mmol/L Normal 3.5-5.1 [facility] Comment on above: Performed By: #### L IPID, CMP #### [facility] [address] [place] [address] Dr. Josse Gant Protein [Mass/Vol] 7.0 g/dL Normal 6.4-8.2 [facility] Comment on above: Performed By: #### L IPID, CMP #### [facility] [address] [address] [address] Josse Gant Sodium [Moles/Vol] 141 mmol/L Normal 136-145 [facility] Comment on above: Performed By: #### L IPID, CMP #### [facility] [address] [place] [address] Dr. Josse Gant Urea nitrogen [Mass/Vol] 22.0 mg/dL Critically high 7.0-18 .0 [facility] Comment on above: Performed By: #### L IPID, CMP #### [facility] [address] [address] [address] Josse Gant Urea nitrogen/Creatinine [Mass ratio] 26.5 mg/mg Normal [facility] Comment on above: Performed By: #### L IPID, CMP #### [facility] [address] [place] [address] Dr. Josse Gant MG MAMM SCREEN 3D JHONNY CADon 12-09-2021 MG MAMM SCREEN 3D JHONNY CAD Patient: KORTNEY SALAZAR Exam Date: 12/09/2021 : 1955 Gender:F Ordering : DR SNEHA CESPEDES M.D. Admission #: [id number] Family : Order #: [id number] CLICK HERE TO VIEW EXAM RADIOLOGY REPORT [...] breast cancer at age 73. LOCATION: [facility] BREAST COMPOSITION: Heterogeneously dense,which may obscure small [...] M.D. on 12/09/2021 at 12:57 Normal [facility] CBC Without Differentialon 0 11-20-2020 Erythrocyte distribution width (RBC) [Ratio] 13.7 % Normal 11.9-15.3 [facility] Comment on above: Performed By: #### O UTREACH LIPID, OUTREACH CMP, CBCNOOUTREACH #### [facility] [address] Hematocrit (Bld) [Volume fraction] 43.6 % Normal 34.0-46.4 [facility] Comment on above: Performed By: #### O UTREACH LIPID, OUTREACH CMP, CBCNOOUTREACH #### [facility] [address] [id number] [place] Hemoglobin (Bld) [Mass/Vol] 14.4 g/dL Normal 11.8-15.4 [facility] Comment on above: Performed By: #### O UTREACH LIPID, OUTREACH CMP, CBCNOOUTREACH #### [facility] [address] MCH (RBC) [Entitic mass] 31.5 pg Normal 24.7-34.3 [facility] Comment on above: Performed By: #### O UTREACH LIPID, OUTREACH CMP, CBCNOOUTREACH #### [facility] [address] MCV (RBC) [Entitic vol] 95.0 fL Normal 80-100 [facility] Comment on above: Performed By: #### O UTREACH LIPID, OUTREACH CMP, CBCNOOUTREACH #### [facility] [address] Mean Corpuscular HGB Conc 33.2 g/dL Normal 32.0-35.0 [facility] Comment on above: Performed By: #### O UTREACH LIPID, OUTREACH CMP, CBCNOOUTREACH #### [facility] [address] Platelet mean volume (Bld) [Entitic vol] 9.3 fL Normal 6.3-10.7 [facility] Comment on above: Result Comment: PERF ORMED BY: [place] [address] PATHOLOGIST TELEGRAPHIC INSTRUMENT SUPERVISOR RUIZ WEI M.D. Performed By: #### O UTREACH LIPID, OUTREACH CMP, CBCNOOUTREACH #### [facility] [address] [place] [address] [place] Platelets (Bld) [#/Vol] 187 10*3/uL Normal 150-450 [facility] Comment on above: Performed By: #### O UTREACH LIPID, OUTREACH CMP, CBCNOOUTREACH #### [facility] [address] RBC (Bld) [#/Vol] 4.58 10*6/uL Normal 3.60-5.00 [facility] Comment on above: Performed By: #### O UTREACH LIPID, OUTREACH CMP, CBCNOOUTREACH #### [facility] [address] [place] [address] WBC (Bld) [#/Vol] 3.8 10*3/uL Normal 3.8-11.6 [facility] Comment on above: Performed By: #### O UTREACH LIPID, OUTREACH CMP, CBCNOOUTREACH #### [facility] [address] CMP Outreachon 11-20-2020 Albumin [Mass/Vol] 4.1 g/dL Normal 3.2-5.5 [facility] Comment on above: Performed By: #### O UTREACH LIPID, OUTREACH CMP, CBCNOOUTREACH #### [address] ALP [Catalytic activity/Vol] 37 U/L Normal 32-92 [facility] Comment on above: Performed By: #### O UTREACH LIPID, OUTREACH CMP, CBCNOOUTREACH #### [address] ALT [Catalytic activity/Vol] 27 U/L Normal 10-60 [facility] Comment on above: Performed By: #### O UTREACH LIPID, OUTREACH CMP, CBCNOOUTREACH #### [facility] [address] [place] [address] AST [Catalytic activity/Vol] 30 U/L Normal 10-42 [facility] Comment on above: Performed By: #### O UTREACH LIPID, OUTREACH CMP, CBCNOOUTREACH #### [facility] [address] [place] [address] Bilirubin [Mass/Vol] 1.4 mg/dL High 0.3-1.2 [facility] Comment on above: Result Comment: Samp les from patients who have taken Naproxen have shown spurious elevation in Total Bilirubin levels. A metabolite of Naproxen, O-desmethylnaproxen, has been shown to interfere with the Jentrevor-Genesis method for measuring Total Bilirubin. Performed By: #### O UTREACH LIPID, OUTREACH CMP, CBCNOOUTREACH #### [facility] [address] [place] [address] [place] Calcium [Mass/Vol] 9.4 mg/dL Normal 8.2-10.2 [facility] Comment on above: Performed By: #### O UTREACH LIPID, OUTREACH CMP, CBCNOOUTREACH #### [facility] [address] [place] [address] [place] Chloride [Moles/Vol] 101 mmol/L Normal 95-114 [facility] Comment on above: Performed By: #### O UTREACH LIPID, OUTREACH CMP, CBCNOOUTREACH #### [facility] [address] [place] [address] [place] CO2 [Moles/Vol] 28.0 mmol/L Normal 22.0-30.0 [facility] Comment on above: Performed By: #### O UTREACH LIPID, OUTREACH CMP, CBCNOOUTREACH #### [address] Creatinine [Mass/Vol] 0.85 mg/dL Normal 0.44-1.03 [facility] Comment on above: Performed By: #### O UTREACH LIPID, OUTREACH CMP, CBCNOOUTREACH #### [place] [address] [place] Estimated GFR ( Cristy > 60 [facility] Comment on above: Result Comment: GFR estimated reference range: According to KDOQI guidelines, <60 ml/min/1.73m2 is sufficient to diagnose a patient with chronic kidney disease. Performed By: #### O UTREACH LIPID, OUTREACH CMP, CBCNOOUTREACH #### [facility] [address] [place] [address] [place] Estimated GFR (Non- Am > 60 [facility] Comment on above: Performed By: #### O UTREACH LIPID, OUTREACH CMP, CBCNOOUTREACH #### [facility] [address] [place] [address] [place] Glucose [Mass/Vol] 92 mg/dL Normal 70-100 [facility] Comment on above: Result Comment: [facility] Glucose Reference Range is dependent on time and content of last meal. Glucose of more than 200 mg/dL in a nonstressed, ambulatory subject supports the diagnosis of Diabetes Mellitus. ADA recommended reference range Performed By: #### O UTREACH LIPID, OUTREACH CMP, CBCNOOUTREACH #### [facility] [address] Potassium [Moles/Vol] 4.1 mmol/L Normal 3.5-5.1 [facility] Comment on above: Performed By: #### O UTREACH LIPID, OUTREACH CMP, CBCNOOUTREACH #### [facility] [address] Protein [Mass/Vol] 6.6 g/dL Normal 6.1-7.9 [facility] Comment on above: Performed By: #### O UTREACH LIPID, OUTREACH CMP, CBCNOOUTREACH #### [facility] [address] Sodium [Moles/Vol] 137 mmol/L Normal 136-146 [facility] Comment on above: Performed By: #### O UTREACH LIPID, OUTREACH CMP, CBCNOOUTREACH #### [facility] [address] Urea nitrogen [Mass/Vol] 25 mg/dL High 9-23 [facility] Comment on above: Performed By: #### O UTREACH LIPID, OUTREACH CMP, CBCNOOUTREACH #### [facility] [address] [place] [id number] [facility] Lipid Profile Outreachon Cholesterol [Mass/Vol] 254 mg/dL High 140-200 [facility] Comment on above: Result Comment: Chol less than 200 mg/dl low risk Chol 201-239 mg/dl borderline risk Chol 240 mg/dl and greater high risk Performed By: #### O UTREACH LIPID, OUTREACH CMP, CBCNOOUTREACH #### [facility] [address] [id number] [facility] Cholesterol in HDL [Mass/Vol] 94 mg/dL High 35-85 [facility] Comment on above: Result Comment: HDL CHOL ATP-III CLASSIFICATION Cardiovascular Risk HDL > or equal to 60 mg/dL LOW HDL < 40 mg/dL HIGH Performed By: #### O UTREACH LIPID, OUTREACH CMP, CBCNOOUTREACH #### [facility] [address] Cholesterol.total/Choleste rol in HDL [Mass ratio] 2.7 {ratio} Normal <5.0 [facility] Comment on above: Result Comment: PERF ORMED BY: [facility] [address] [place] [address] PATHOLOGIST TELEGRAPHIC INSTRUMENT SUPERVISOR RUIZ WEI M.D. Performed By: #### O UTREACH LIPID, OUTREACH CMP, CBCNOOUTREACH #### [facility] [address] LDL Cholesterol,Calculated 150 mg/dL High 0-100 [facility] Comment on above: Result Comment: LDL ATP III CLASSIFICATION LDL less than 100 mg/dL Optimal LDL 100-129 mg/dL Near or above optimal LDL 130-159 mg/dL Borderline high LDL 160-189 mg/dL High LDL greater than 189 mg/dL Very high Performed By: #### O UTREACH LIPID, OUTREACH CMP, CBCNOOUTREACH #### [address] Triglyceride w/Reflex 48 mg/dL Normal 35-149 [facility] Comment on above: Result Comment: TRIG ATP III CLASSIFICATION TRIG less than 150 mg/dL Normal TRIG 150-199 mg/dL Borderline high TRIG 200-500 mg/dL High TRIG greater than 500 mg/dL Very high Standard traceable to the Center for Disease Conrtrol and Prevention (CDC) test method. Performed By: #### O UTREACH LIPID, OUTREACH CMP, CBCNOOUTREACH #### [facility] [address] VLDL CHOLESTEROL 9 mg/dL Normal [facility] Comment on above: Performed By: #### O UTREACH LIPID, OUTREACH CMP, CBCNOOUTREACH #### [facility] [address] Vital Signs Date Time Vital Sign Value Performing Clinician Facility 10-29-2024 08:28-0400 Body height 170.18 cm [facility] 03-04-2024 08:28-0400 Body mass index (BMI) [Ratio] 18.6 kg/m2 [facility] 03-04-2024 08:28-0400 Body weight 53.97 kg [facility] 03-04-2024 08:28-0400 Diastolic blood pressure 78 mm[Hg] [facility] 03-04-2024 08:28-0400 Heart rate 66 /min [facility] 03-04-2024 08:28-0400 Systolic blood pressure 120 mm[Hg] [facility] 10-10-2023 08:43-0400 Body height 170.18 cm [facility] 10-10-2023 08:43-0400 Body mass index (BMI) [Ratio] 18 kg/m2 [facility] 10-10-2023 08:43-0400 Body temperature 98.2 [degF] [facility] 10-10-2023 08:43-0400 Body weight 52.16 kg [facility] 10-10-2023 08:43-0400 Diastolic blood pressure 80 mm[Hg] [facility] 10-10-2023 08:43-0400 Heart rate 80 /min [facility] 10-10-2023 08:43-0400 Systolic blood pressure 127 mm[Hg] [facility] 10-06-2023 09:54-0400 Body height 170.18 cm [facility] 10-06-2023 09:54-0400 Body mass index (BMI) [Ratio] 18.2 kg/m2 [facility] 10-06-2023 09:54-0400 Body temperature 98.3 [degF] [facility] 10-06-2023 09:54-0400 Body weight 52.78 kg [facility] 10-06-2023 09:54-0400 Diastolic blood pressure 81 mm[Hg] [facility] 10-06-2023 09:54-0400 Heart rate 83 /min [facility] 10-06-2023 09:54-0400 Respiratory rate 16 /min [facility] 10-06-2023 09:54-0400 SaO2% (BldA) [Mass fraction] 96 % [facility] 10-06-2023 09:54-0400 Systolic blood pressure 130 mm[Hg] [facility] 07-25-2023 09:08-0400 Body height 170.18 cm [facility] 07-25-2023 09:08-0400 Body mass index (BMI) [Ratio] 18.3 kg/m2 [facility] 07-25-2023 09:08-0400 Body weight 53.12 kg [facility] 07-25-2023 09:08-0400 Diastolic blood pressure 84 mm[Hg] [facility] 07-25-2023 09:08-0400 Heart rate 69 /min [facility] 07-25-2023 09:08-0400 Systolic blood pressure 132 mm[Hg] [facility] 01-02-2023 10:00-0400 Body height 170.18 cm Sneha Cespedes Other [employer] [facility] Other 01-02-2023 10:00-0400 Body mass index (BMI) [Ratio] 18.17 kg/m2 Sneha Cespedes Other [employer] [facility] Other 01-02-2023 10:00-0400 Body weight 52.62 kg Sneha Cespedes Other [employer] Other 01-02-2023 10:00-0400 Diastolic blood pressure 78 mm[Hg] Sneha Cespedes Other [employer] Other 01-02-2023 10:00-0400 Systolic blood pressure 127 mm[Hg] Sneha Cespedes Other [employer] Other Encounters Encounter Date Encounter Type Care Provider Facility Start: 03-04-2024 End: 03-04-2024 ambulatory [facility] Work Phone: Start: 03-04-2024 End: 03-04-2024 Patient encounter procedure [facility] Work Phone: Start: 02-28-2024 End: 02-28-2024 Bamboo flowsheet Sophia Bender Felter [employer]AIL[employer] Work Phone: [facility] Start: 02-28-2024 End: 02-28-2024 Bamboo flowsheet Sophia A Felter [employer] PROFESS[employer]-JAIL[employer] Work Phone: [facility] Start: 02-28-2024 End: 02-28-2024 ambulatory SOPHIA A FELTER Not Available Start: 02-28-2024 End: 02-28-2024 Office outpatient visit 15 minutes Sophia Paulsoner [employer] PROFESS[employer]-JAILER Work Phone: [facility] Comment on above: Melanocytic nevus of trunk; Seborrheic keratosis; Inflamed seborrheic keratosis; Lentigines; Capillary angioma; Sebaceous hyperplasia Start: 01-01-2024 Non-patient / Non-visit [facility] Work Phone: Start: 10-10-2023 End: 10-10-2023 ambulatory [facility] Work Phone: Start: 10-10-2023 End: 10-10-2023 Patient encounter procedure [facility] Work Phone: Start: 10-06-2023 End: 10-06-2023 ambulatory [facility] Work Phone: Start: 10-06-2023 End: 10-06-2023 Patient encounter procedure [facility] Work Phone: Start: 07-25-2023 End: 07-25-2023 ambulatory [facility] Work Phone: Start: 07-25-2023 End: 07-25-2023 Patient encounter procedure [facility] Work Phone: Start: 06-06-2023 End: 06-06-2023 ambulatory Sneha Cespedes Other [employer] Other Start: 06-06-2023 Telephone encounter Sneha Cespedes [facility] Start: 06-05-2023 ambulatory Facility:Melissa Toscano Start: 06-04-2023 End: 06-04-2023 ambulatory Sneha Cespedes Other [employer] Other Start: 06-04-2023 Telephone encounter Sneha Cespedes [facility] Start: 01-12-2023 End: 01-12-2023 ambulatory Sneha Cespedes Other [employer] Other Start: 01-12-2023 Encounter by [employer] judy Cespedes [facility] Start: 01-02-2023 End: 01-02-2023 ambulatory Sneha Cespedes Other [employer] Other Start: 01-02-2023 Patient encounter procedure Sneha Cespedes [facility] Start: 12-28-2022 End: 12-28-2022 ambulatory Sneha Cespedes Other [employer] Other Start: 12-28-2022 Telephone encounter Sneha Cespedes [facility] Start: 08-24-2022 End: 08-25-2022 ambulatory GURINDER HENNING . Facility:[facility] Start: 03-17-2022 End: 03-18-[address] SNEHA CESPEDES Facility:[facility] Start: 02-07-2022 End: 02-08-[address] JAZZMINE Harden Facility:[facility] Start: 01-03-2022 End: 01-04-[address] SNEHA CESPEDES Facility:[facility] Start: 12-09-2021 End: 12-10-[address] SNEHA CESPEDES Facility:[facility] Procedures Date Procedure Procedure Detail Performing Clinician Start: 02-28-2024 CRYOTHERAPY SKIN LESION Sophia Mensah [employer]ESS[employer]-JAIL[employer] Work Phone: Start: 01-01-2024 Cortisol total Comment on above: Please Note: The ref erence interval and flagging for this test is for an AM collection. If this is a PM collection please use: Cortisol PM: 2.3-11.9 Plan of Treatment Date Care Activity Detail Author Start: 02-26-2025 End: 02-26-2025 Patient encounter procedure 02/26/2025 8:50 AM EDT Office Visit [facility] [address] [place] [phone] Sophia Mensah, [employer] PROFESS[employer]-JAILER [address] [place] [address] [facility] Start: 01-06-2024 Influenza vaccination Influenza Vacc ine (#1) [facility] Start: 1993 Screening for malign ant neoplasm of breast Mammogram [facility] Start: 1955 Screening for malign ant neoplasm of colon [facility] Immunizations Immunization Date Immunization Notes Care Provider Fa jane 07-20-2021 Prevnar 20 Sneha Cespedes Other [facility] 03-18-2019 influenza virus vaccine, unspecified formulation Sophia Mensah [employer] PROFESS[employer]-JAILER Work Phone: [facility] Payers Date Payer Category Payer Medicare MEDICARE [id number] 2018 Other GENERIC OTHER [id number] 2016 Unknown [id number] 1961 Medicare [id number] 1959 Unknown [id number] 1955 Unknown [id number] 1955 Unknown [id number] 1955 Unknown [id number] 1955 Unknown [id number] 1955 Unknown [id number] 1955 Unknown [id number] 1955 Unknown [id number] Self-pay Self Pay [id number] Social History Date Type Detail Facility Unknown if ever smoked [facility] Other Start: 02-27-2023 End: 02-28-2024 Sex Assigned At [employer] [facility] Other Start: 1955 Sex Assigned At Female [facility] Start: 12-05-2022 End: 10-06-2023 Tobacco smoking status NHIS Never smoked tobacco (finding) [facility] Start: 12-05-2022 Tobacco use and exposure Smokeless tobacco non-user [facility] Start: 02-27-2023 End: 02-28-2024 History of Social function [facility] Start: 1955 Sex assigned at Not on file [facility] Start: 02-28-2024 Alcoholic beverage intake Current drinker of alcohol (finding) [facility] NEGATED: Highlighted rowStart: EVA History of tobacco use Passive smoker [facility] Clinical Notes 02-07-2022 to 02-28-2024 Sophia Paulsones, [place] HISTORY PROFESSOR-JAILER - 02/28/2024 9:05 AM EDT Note Date [...] limited to risks of scarring, darker or clinique counter manager pigmentary changes, recurrence, incomplete removal and infection. 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 [facility] Other 04-20-2023 NoteCONSULTATION PROCEDURE DATE: 08/24/2022 TO: [...] marked reduction in pain symptoms post procedurally.[id number] Note CONSULTATION PROCEDURE DATE: 02/07/2022 PREOPERATIVE DIAGNOSIS: [...] will be followed up in the office.[facility] 02-07-2022 NoteCONSULTATION CONSULTATION DATE: 02/07/2022 CHIEF COMPLAINT: [...] like to proceed. CC: Sneha Cespedes M.D.[facility] noteNo InformationNortJames E. Van Z[facility] Other Evaluation note* Diagnosis Onset Date Resolution Status Essential (primary) hypertension acute [facility] Work Phone: Evaluation note* Diagnosis Onset Date Resolution Status Essential (primary) hypertension acute Viral URI with cough acute [facility] Work Phone: Evaluation note* Diagnosis Melanocytic nevus of trunk Benign neoplasm of skin of trunk, except scrotum Seborrheic keratosis Inflamed seborrheic keratosis Lentigines Capillary angioma Nevus, non-neoplastic Sebaceous hyperplasia documented [facility] Diagnosis Onset Date Resolution Status Essential (primary) hypertension acute Hormonal disorder acute Leukopenia acute [facility] Work Phone: History general Narrative - [...] lateral epicondylitis Hospitalization History see surgical hx [facility]ly [facility] Other Summary Purpose Family History No Family History Records Found Relationship Condition Age at Onset Recorded Date/T [...] History of ovarian cancer Unknown Advance Directives No Advanced Directives Records Found Advance Directive Response Recorded Date/ Time Advance Directives No July 24 024 8:58am Reason for Referral Reason colon cancer screeni ng Diagnosis 1 Screening for colon cancer (Z12.11) Referral Organization [facility] C walt Referring Provider First Name Sneha Referring Provider Last Name Coy Referring Provider [facility]ty [facility] Referred [facility] Referred Provider Jake Martinez Referred Address [address] [place] [phone] Referred Provider Specialty Surgery Referral Priority Routine [...] section and content) DATE CREATED AUTHOR 05/29/2021 [facility] DATE CREATED AUTHOR AUTHOR'S ORGANIZ ATION 08/29/2022 [facility] DATE CREATED AUTHOR AUTHOR'S ORGANIZ ATION 02/29/2024 [facility] EPIC DATE CREATED AUTHOR AUTHOR'S ORGANIZ ATION 06/03/2024 [facility] REASON FOR VISIT (unrecogniz ed section and content) Reason Comments Skin Check Care Teams (unrecognized sec tion and content) Team Status: Active Member Role Status Dates Sneha Cespedes MD Primary Care Provider Active Team Status: Active Member Role Status Dates Sneha eCspedes MD Primary Care Provide r, Attending Provider Active Start: January 01, 2024 Team Status: Inactive Member Role Status Dates Sneha Cespedes MD Primary Care Provide r, Attending Provider Active Start: March 04, 2024 End: March 04, 2024 Team Status: Inactive Member Role Status Dates Sneha Cespedes MD Primary Care Provide r, Attending Provider Active Start: July 25, 2023 End: July 25, 2023 Team Status: Inactive Member Role Status Dates Sneha Cespeeds MD Primary Care Provider Active Start: October 06, 2023 End: October 06, 2023 Ebonie Monreal APRN Attending Provider Active Start: October 06, 2023 End: October 06, 2023 Team Status: Inactive Member Role Status Dates Sneha Cespedes MD Primary Care Provide r, Attending Provider Active Start: October 10, 2023 End: October 10, 2023 Geospatial Engineer Relationship Specialty Start Date End Date Sneha Cespedes MD [address] [place] [phone] PCP - General Family Medicine 01/18/23 Geospatial Engineer Relationship Specialty Start Date End Date Sneha Cespedes MD [address] [place] [phone] PCP - General Family Medicine 01/18/23 Goals (unrecognized section and content) Goals may [...] BE BASED ON THE PRIMARY CLINICAL RECORDS. [employer] [facility]. provides no warranty or guarantee of the accuracy or completeness of information in this document.
[2024-06-24 04:06] LABS: Estradiol 10.2 pg/mL (0.0-54.7); Progesterone 0.4 ng/mL (.)
[2024-06-25 16:08] LABS: Estrone, Serum 33 pg/mL (0-125)
[2024-06-27 19:07] LABS: Free Testosterone(Direct) 0.9 pg/mL (0.0-4.2); Testosterone 46 ng/dL (3-67)
== END 2024-06-23 09:39 | disposition home or self-care (01) ==
LOC: LAB 09:43
PROVIDERS: PCP Family Medicine; Visit Provider Family Medicine
DX: E34.9 Endocrine disorder, unspecified (principal)
CPT/HCPCS: 36415; 82306; 82670; 82679; 84144; 84402; 84403

== ENCOUNTER 2024-11-17 12:56 | Outpatient (OUT) | payer MEDICARE, OTHER, SELFPAY ==
--- NOTE | 2024-11-17 13:33 | P.CN_ITS ---
Consult Note: HPI Data of Consult Patient: known to practice within the last 3 years Consult date: 11/17/24 Requesting Physician: Elizabeth Cheng MD Primary Care Provider: Sneha Esqueda MD Consult Narrative Reason for consult: right hand pain Narrative: 69yof who presents for assessment. longstanding history of right thumb, third digit pain. has had injections of these areas in the past, which typically provide about a year of relief. very active, denies adverse med side effects. cc:: CC: Elizabeth Cheng MD Review of Systems ROS Status of ROS 10 or more systems reviewed and unremark able except as noted in history and below Exam Narrative Exam Narrative: Psych-alert and oriented x 3.? Attentive and appropriate, constitutionally normal, displays normal mood and affect per situation.? There are no obvious deficits in memory, reasoning, or intellect.? Skin-no obvious rashes, bruising, erythema noted to the patient's area of pain. Extremities- extremities are warm with minimal edema and palpable pulses. Tender to palpation over right base of thumb, right third digit base. Coordination remains intact.? Gait remains non-antalgic. Assessment and Plan Assessment and Plan (1) Pain of right thumb: (2) Right hand pain: Plan 69yof who presents for assessment. failed conservative measures, as noted. given symptoms and previous relief, prudent to attempt right thumb and third digit injection in office. she is in agreement. meds reviewed, no changes. follow up as needed. procedure: right thumb, third digit injection medications: bupivacaine 0.25% 3cc, depomedrol 40mg I explained the details of the procedure to the patient including the risks, benefits and alternatives. We had an informed discussion and the patient verbalized understanding and signed the consent form. All questions were answered appropriately.? A time out was performed.? After obtaining a comfortable seated position, the right hand was prepped with alcohol x3. A syringe containing the above medication was attached to a 27 gauge, 1.5 inch needle under strict aseptic technique. The base of the thumb was palpated.? The needle was then advanced through the subcutaneous tissue towards the joint space.? The contents of the syringe were gently injected without any resistance. The needle was removed and pressure was applied to the injection site to decrease the incidence of ecchymosis and hematoma formation.? A sterile bandage was applied. The same procedure was then applied with approach towards the base of the third digit.
== END 2024-11-17 12:57 | disposition home or self-care (01) ==
LOC: PM 12:57
PROVIDERS: PCP Family Medicine; Visit Provider Anesthesiology
DX: M79.644 Pain in right finger(s) (principal); M79.641 Pain in right hand
CPT/HCPCS: 20605; J0665; J1010

== ENCOUNTER 2025-01-01 06:37 | Outpatient (OUT) | payer MEDICARE, OTHER, SELFPAY ==
--- OUTSIDE RECORDS SUMMARY | 2025-01-01 06:40 | XMS_ITS | CCD ---
Author Organization [facility] Care Team Providers Care Farm Butcher Name Role Phone COY, DR SNEHA Soto Admitting Unavailable COY, DR SNEHA Soto Attending Unavailable COY, DR SNEHA Soto Primary Care Unavailable MORE, DR GOVIND Coleman Consulting Unavailable COY, DR SNEHA Soto Consulting Unavailable KATH ., DR JAZZMINE Fleming Admitting Unavailable STOCKTON ., DR JAZZMINE Fleming Attending Unavailable COY, DR SNEHA Soto Primary Care Unavailable STOCKTON ., DR JAZZMINE Fleming Consulting Unavailable LAKSHMIPATHY ., NARNELIDA Admitting Brandie vailable ROBERTMIPATHOziel ., GURINDER Attending Brandie vailable COY, DR [...] Unavailable Sneha Cespedes MD Primary Care Provider [phone] SOPHIA MENSAH Attending Unavailable Skylar ORNELAS, Elizabeth Saldana Attending Unavailable Allergies Allergy Classification Reported Allergen(s) Allergy Type Date of Onset Reaction(s) Facility (5 sources) Alendronate Drug Allergy Unknown [facility] Other Medications Current Medications Medication Drug Class(es) Dates Sig (Normalized) Sig (Original) amLODIPine 5 mg / benazepril hydrochloride 10 mg oral capsule (13 sources) Dihydropyridine Calcium Channel Patrizia, Angiotensin Converting Enzyme Inhibitor Start: 01-04-2024 take 1 capsule by mouth once daily Amlodipine-Benaz epril 5-10 mg capsule Active 0 .ROUTE .COMPLEX 90 January 04, 2024 9:55pm TAKE 1 CAPSULE BY MOUTH EVERY DAY FOR 90 DAYS Start: 07-25-2023 End: 01-04-2024 take 1 capsule by mouth once daily Amlodipine-Benazepril 5-10 mg capsule Discontinued 1 CAP PO Daily July 25, 2023 12:00am January 04, 2024 9:55pm Start: 12-30-2021 take 1 capsule by mo [facility] every twenty-four hours amLODIPine Besy-Benazepril HCl 5-10 MG 1 capsule Orally daily for 90 days Dec, Active take 1 capsule by mo uth in the morning amLODIPine-benazepril (Lotrel) 5-10 MG capsule Take 1 capsule by mouth in the morning. Active amLODIPine Besy-Benazepril HCl 5-10MG (2 sources) Start: 12-30-2021 take 5-10 mg by mouth once daily amLODIPine Besy-Benazepril HCl 5-10MG amLODIPine Besy-Benazepril HCl 5-10MG, 1 (one) Capsule daily # 90, 12/30/2021, Ref. x3. Active Oral daily for 0 *Pick strength-form from [facility] for eRX* Dec, Active amoxicillin 875 mg / clavulanate 125 mg oral tablet (1 source) Penicillin-class Antibacterial Start: 04-21-2024 take 1 tablet by mouth twice daily Amoxicillin-Pot Clavulanate 875-125 mg tablet Active 1 TAB PO Twice daily April 21, 2024 1:00am Calcium (8 sources) Phosphate Binder, Calcium Start: 07-09-2014 Calcium 600 600MG Calcium 600 600MG, # 0.00, 07/09/2014, No Refill. Active for 0 *Pick strength-form from [facility] for eRX* Jul, Active calcium 200 MG [...] in AM. 60 mL 11 02/27/2023 Active Xdynve-Zrjelcxsn-Mcmdwony-MS M (GLUCOSAMINE CHONDROITIN JOINT PO) (3 sources) [...] No Refill. Active for 0 *Reorder from [facility] for eRx and Interaction Alerts* Jul, Active VITAMIN D CALCIUM - this medication is not being screened (5 sources) Start: 07-09-2014 VITAMIN D CALCIUM - this medication is not being screened VITAMIN D CALCIUM - this medication is not being screened( ) Active -Hx Entry for 0 *Reorder from [facility] for eRx and Interaction Alerts* Jul, Active Completed/Discontinued Medications Medication Drug Class(es) Dates Sig (Normalized) Sig (Original) azithromycin 250 mg oral tablet (2 sources) Macrolide Antimicrobial Start: 10-16-2023 End: 03-04-2024 Azithromycin 250 mg tablet Discontinued 0 PO .COMPLEX October 16, 2023 12:00am March 04, 2024 8:42am For 250 mg dose pack: take 500 mg today (day 1), then 250 mg for 4 days (days 2-5) PO Start: 10-16-2023 End: 03-04-2024 Azithromycin Discontinued 0 PO .COMPLEX October 16, 2023 12:00am March 04, 2024 8:42am For 250 mg dose pack: take 500 mg today (day 1), then 250 mg for 4 days (days 2-5) PO sulfamethoxazole 800 mg / trimethoprim 160 mg oral tablet (2 sources) Dihydrofolate Reductase Inhibitor Antibacterial, Sulfonamide Antimicrobial Start: 11-01-2023 End: 03-04-2024 take 1 tablet by mouth twice daily Sulfamethoxazole-Trimethoprim 800-160 mg tablet Discontinued 1 TAB PO Twice daily November 01, 2023 12:00am March 04, 2024 8:42am Problems Active Problems Problem Classification Problem Date Documented Date Episodic/Chronic Diseases of white blood cells (16 sources) Decreased white blood cell count, unspecified; Translations: [Leukopenia] Onset: 03-17-2022 Chronic Essential hypertension (19 sources) Essential (primary) hypertension; Translations: [Essential hypertension] [...] Onset: 03-20-2022 03-04-2024 Episodic Other endocrine disorders (10 sources) Disorder of endocrine system; Translations: [Endocrine [...] [Nasal congestion] Episodic Other upper respiratory infections (5 sources) Viral upper respiratory tract infection; Translations: [Acute upper respiratory infection, unspecified] 10-06-2023 Episodic Thyroid disorders (12 sources) Other specified hypothyroidism; Translations: [Hypothyroidism] Onset: 03-20-2022 Chronic Past or Other Problems Problem Classification Problem Date Documented Da te Episodic/Chronic Residual codes; unclassified (1 source) Family history of malignant neoplasm of breast; Translations: [FAMILY HX MALIG NEOPLASM OF BREAST] Onset: 12-12-2021 Episodic Results Test Name Value Interpretation Reference Range Facility Free testosterone measuremen t by LC-MS/MSon 06-23-2024 Testosterone Free [Mass/Vol] Free testosterone measurement by LC-MS/MS 0.0-4.2 [facility] Comment on above: Performed at: [address] [id number] Director: Catrachito Moreland PhD, Phone: [phone] at: [address] [id number] Director: Topher Haynes MD, Phone: [phone] No Panel Informationon 06-23 25-Hydroxy Vitamin D Total 100.8 ng/mL [facility] Comment on above: <20 ng/mL Vit D defi cient20-<30 ng/mL Vit D goczbeneptaw55-485 ng/mL Vit D sufficient>100 ng/mL Potential Toxicity Miscellaneous Test COMMENT . [facility] Comment on above: Test Ordered: [id number] Pregnenolone, MSPregnenolone, MS 12 ng/dL ES Reference Range: .This test was developed and its performance characteristicsdetermined by [facility]. It has not been cleared or approvedby the Food and Drug Administration.Reference Range:Adults: <151Performed at: ES - [facility] [address] [id number] Director: Cuauhtemoc Varghese MD, Phone: [phone] at: [id number] [place], [place] [id number] Director: Catrachito Moreland PhD, Phone: [phone] Testosterone Level 46 ng/dL 3-67 [facility] Serum estrone measurementon 06-23-2024 E1 [Mass/Vol] Serum estrone measurement 0-125 [facility] Comment on above: Range Adult (Premeno pausal) 27 - 231 Menstrual Cycle (1-10 days) 19 - 149 Menstrual Cycle (11-20 days) 32 - 176 Menstrual Cycle (21-30 days) 37 - 200 Adult (Postmenopausal) 0 - 125Performed at: [employer] [id number] Director: Topher Haynes MD, Phone: [phone] Reminderson 06-02-2024 Reminders Reminders From: Anusha Chow To: - Overhead Cleaner; Sent: 06/02/2024 14:27:46 EST Show up: 07/05/2025 14:27:00 EST Subject: Ambulatory Reminder Reminder/Recall call patient to set up 10 yr screening colonoscopy with Dr Martinez. s [facility] No Panel Informationon 02-27 [facility] Basophils Auto (Bld) [#/Vol] on 01-01-2024 Basophils (Bld) [#/Vol] 0.0 10 3/uL 0.0-0.1 [facility] Basophils/100 WBC Auto (Bld) on 01-01-2024 Basophils/100 WBC (Bld) 0.9 % 0.2-2.0 [facility] Cholesterol in LDL Calc [Mas s/Vol]on 01-01-2024 Cholesterol in LDL [Mass/Vol] 101.0 mg/dL [facility] Comment on above: <100 mg/dl [id number] 0-129 mg/dl NEAR OR ABOVE [id number] mg/dl BORDERLINE [id number] mg/dl HIGH>190 mg/dl VERY HIGH Cholesterol in VLDL Calc [Ma ss/Vol]on 01-01-2024 Cholesterol in VLDL [Mass/Vol] 9.4 mg/dL [facility] Eosinophils/100 WBC Auto (Bl d)on 01-01-2024 Eosinophils/100 WBC (Bld) 10.3 % High 0.9-7.0 [facility] Erythrocyte distribution wid th Auto (RBC) [Ratio]on 01-01-2024 Erythrocyte distribution width (RBC) [Ratio] 12.7 % 11.0-15.0 [facility] Estimated glomerular filtrat ion rate (GFR) non- Americanon 01-01-2024 GFR/1.73 sq M.predicted among non-blacks MDRD (S/P/Bld) [Vol rate/Area] mL/min/{1.73_m2} >=60 [facility] Free testosterone measuremen t by LC-MS/MSon 01-01-2024 Testosterone Free [Mass/Vol] 2.1 pg/mL 0.0-4.2 [facility] Comment on above: Performed at: [address] [id number] Director: Catrachito Moreland PhD, Phone: [phone] at: BN - [facility] [address] [id number] Director: Topher Haynes MD, Phone: [phone] Globulin Calc (S) [Mass/Vol] on 01-01-2024 Globulin (S) [Mass/Vol] 3.0 g/dL [facility] Glucose mean value [Mass/vol ume] in Blood Estimated from glycated hemoglobinon 01-01-2024 Average glucose Estimated from glycated hemoglobin (Bld) [Mass/Vol] 103 mg/dL [facility] Hematocrit Auto (Bld) [Volum e fraction]on 01-01-2024 Hematocrit (Bld) [Volume fraction] 44.7 % 36.0-48.0 [facility] Hemoglobin [Mass/volume] in Bloodon 01-01-2024 Hemoglobin (Bld) [Mass/Vol] 14.8 g/dL 12.0-16.0 [facility] Laboratory - Chemistry and C hemistry - challengeon 01-01-2024 Albumin [Mass/Vol] 3.8 g/dL 3.4-5.0 [facility] ALP [Catalytic activity/Vol] 52 U/L 46-116 [facility] ALT [Catalytic activity/Vol] 37 U/L 14-59 [facility] AST [Catalytic activity/Vol] 28 U/L 15-37 [facility] Bilirubin [Mass/Vol] 1.0 mg/dL 0.2-1.0 [facility] Calcium [Mass/Vol] 8.8 mg/dL 8.5-10.1 [facility] Chloride [Moles/Vol] 103 mmol/L 98-107 [facility] Cholesterol [Mass/Vol] 202 mg/dL High <=200 [facility] Cholesterol in HDL [Mass/Vol] 92 mg/dL High 40-60 [facility] Comment on above: > or =60 mg/dl - LOW CARDIOVASCULAR RISK<40 mg/dl - HIGH CARDIOVASCULAR RISK CO2 [Moles/Vol] 31.1 mmol/L 21.0-32.0 [facility] Creatinine [Mass/Vol] 0.87 mg/dL 0.55-1.02 [facility] GFR/1.73 sq M.predicted MDRD (S/P/Bld) [Vol rate/Area] mL/min/{1.73_m2} >=60 [facility] Glucose [Mass/Vol] 93 mg/dL 74-106 [facility] Potassium [Moles/Vol] 3.9 mmol/L 3.5-5.1 [facility] Protein [Mass/Vol] 6.8 g/dL 6.4-8.2 [facility] Sodium [Moles/Vol] 140 mmol/L 136-145 [facility] Triglyceride [Mass/Vol] 47 mg/dL <=150 [facility] TSH Qn 1.677 m[IU]/L 0.358-3.74 0 [facility] Urea nitrogen [Mass/Vol] 25.0 mg/dL High 7.0-18.0 [facility] Urea nitrogen/Creatinine [Mass ratio] 28.7 mg/mg [facility] Laboratory - Hematology and Cell countson 01-01-2024 HbA1c (Bld) [Mass fraction] 5.2 % 4.5-6.2 [facility] Comment on above: ADA RECOMMENDED LIMI T 4.0 - 6.0ADA THERAPEUTIC TARGET < 7.0ACTION SUGGESTED> 7.0 Immature granulocytes/100 WBC (Bld) 0.3 % 0.0-0.5 [facility] Leukocytes [#/volume] correc pacheco for nucleated erythrocytes in Blood by Automated counon 01-01-2024 WBC corrected for nucl RBC Auto (Bld) [#/Vol] 3.5 10 3/uL Low 4.0-11.0 [facility] Lymphocytes Auto (Bld) [#/Vo l]on 01-01-2024 Lymphocytes (Bld) [#/Vol] 1.1 10 3/uL Low 1.2-3.8 [facility] Lymphocytes/100 WBC Auto (Bl d)on 01-01-2024 Lymphocytes/100 WBC (Bld) 31.4 % 20.5-60.0 [facility] MCH Auto (RBC) [Entitic mass ]on 01-01-2024 MCH (RBC) [Entitic mass] 32.2 pg 26.7-34.0 [facility] MCHC Auto (RBC) [Mass/Vol]on 01-01-2024 MCHC (RBC) [Mass/Vol] 33.1 g/dL 29.9-35.2 [facility] [place] MCV Auto (RBC) [Entitic vol] on 01-01-2024 MCV (RBC) [Entitic vol] 97.2 fL 81.0-99.0 [facility] Monocytes Auto (Bld) [#/Vol] on 01-01-2024 Monocytes (Bld) [#/Vol] 0.3 10 3/uL 0.3-0.8 [facility] Monocytes/100 WBC Auto (Bld) on 01-01-2024 Monocytes/100 WBC (Bld) 8.0 % 1.7-12.0 [facility] Neutrophils Auto (Bld) [#/Vo l]on 01-01-2024 Neutrophils (Bld) [#/Vol] 1.7 10 3/uL 1.4-6.5 [facility] Neutrophils/100 WBC Auto (Bl d)on 01-01-2024 Neutrophils/100 WBC (Bld) 49.1 % 43.0-75.0 [facility] No Panel Informationon 12-31 25-Hydroxy Vitamin D Total 126.7 ng/mL [facility] Comment on above: <20 ng/mL Vit D defi cient20-<30 ng/mL Vit D ynfibvjonjxu58-924 ng/mL Vit D sufficient>100 ng/mL Potential Toxicity Dehydroepiandrosterone Sulfate 81.6 ug/dL 20.4-186.6 [facility] Eosinophils # (Auto) 0.4 10 3/uL 0.0-0.7 [facility] Immature Granulocyte # (Auto) 0.01 10 3/uL 0.00-0.03 [facility] Sex Hormone Binding Globulin 93.8 nmol/L 17.3-125.0 [facility] Comment on above: Performed at: [facility] [place] [id number] Director: Catrachito Moreland PhD, Phone: [phone] Testosterone Level 236 ng/dL Abnormal 3-67 [facility] Platelet mean volume Auto (B ld) [Entitic vol]on 01-01-2024 Platelet mean volume (Bld) [Entitic vol] 9.8 fL 9.5-13.5 [facility] Platelets Auto (Bld) [#/Vol] on 01-01-2024 Platelets (Bld) [#/Vol] 183 10 3/uL 150-450 [facility] RBC Auto (Bld) [#/Vol]on RBC (Bld) [#/Vol] 4.60 10 6/uL 4.20-5.40 [facility] Serum estrone measurementon 01-01-2024 E1 [Mass/Vol] 35 pg/mL 0-125 [facility] Comment on above: Range Adult (Premeno pausal) 27 - 231 Menstrual Cycle (1-10 days) 19 - 149 Menstrual Cycle (11-20 days) 32 - 176 Menstrual Cycle (21-30 days) 37 - 200 Adult (Postmenopausal) 0 - 125Performed at: [address], [place], [place] [id number] Director: Topher Haynes MD, Phone: [phone] Serum or plasma albumin/glob ulin mass ratioon 01-01-2024 Albumin/Globulin [Mass ratio] 1.3 {ratio} [facility] Serum or plasma anion gap de terminationon 01-01-2024 Anion gap [Moles/Vol] 9.8 mmol/L [facility] Serum or plasma estradiol (E 2) measurement (mass/volume)on 01-01-2024 E2 [Mass/Vol] 13.6 pg/mL 0.0-54.7 [facility] Comment on above: Adult Female Range F ollicular phase 12.5 - 166.0 Ovulation phase 85.8 - 498.0 Luteal phase 43.8 - 211.0 Postmenopausal <6.0 - 54.7 1st trimester 215.0 - >4300.0Roche ECLIA methodology Serum or plasma progesterone measurement (mass/volume)on 01-01-2024 Progesterone [Mass/Vol] 1.4 ng/mL . [facility] Comment on above: Follicular phase 0.1 - 0.9 Luteal phase 1.8 - 23.9 Ovulation phase 0.1 - 12.0 First trimester 11.0 - 44.3 Second trimester 25.4 - 83.3 Third trimester 58.7 - 214.0 Postmenopausal 0.0 - 0.1 Serum or plasma total choles terol/high density lipoprotein (HDL) cholesterol mass curt 01-01-2024 Cholesterol.total/[place] sterol in HDL [Mass ratio] 2.2 {ratio} [facility] Comment on above: 3.3 - 4.4 LOW RISK4. 4 - 7.1 AVERAGE RISK7.1 - 11.0 MODERATE RISK>11.0 HIGH RISK Physician Referralon 024 Physician Referral [id number] Normal [facility] ESTRONEon 03-22-2022 Estrone, Serum <6 Normal 0-125 [facility] Comment on above: Result Comment: Rang e Adult (Premenopausal) 27 - 231 Menstrual Cycle (1-10 days) 19 - 149 Menstrual Cycle (11-20 days) 32 - 176 Menstrual Cycle (21-30 days) 37 - 200 Adult (Postmenopausal) 0 - 125 Performed By: #### E STRONE #### [facility] [address] [place] [address] Dr. Josse Gant TESTOSTERONE, FREE,DIRECT, T OTALon 03-22-2022 Free Testosterone(Direct) 0.5 pg/mL Normal 0.0-4.2 [facility] Comment on above: Result Comment: Perf ormed at: BN Performed By: #### T ESTFRD #### [facility] [address] [place] [address] Dr. Josse Gant Testosterone [Mass/Vol] 60 ng/dL Normal 3-67 T [facility] Comment on above: Result Comment: Perf ormed at: CB Performed By: #### T ESTFRD #### [facility] [address] [place] [address] Dr. Josse Gant VIT D 1 25 DIHYDROXYon 03-20 Calcitriol(1,25 di-OH Vit D) 55.0 pg/mL Normal 24.8-81.5 [facility] Comment on above: Performed By: #### V [id number] #### [facility] [address] [place] [address] Dr. Josse Gant CORTISOLon 03-18-2022 Cortisol 10.6 ug/dL Normal [facility] Comment on above: Result Comment: Patricio isol AM 6.2 - 19.4 Cortisol PM 2.3 - 11.9 Performed By: #### T SH #### [facility] [address] [place] [address] Dr. Josse Gant DHEA-SULFATEon 03-18-2022 DHEA-Sulfate 32.3 ug/dL Normal 20.4-186.6 [facility] Comment on above: Performed By: #### T SH #### [facility] [address] [place] [address] Dr. Josse Gant ESTRADIOLon 03-18-2022 Estradiol <5.0 Normal [facility] Comment on above: Result Comment: Adul t Female: Follicular phase 12.5 - 166.0 Ovulation phase 85.8 - 498.0 Luteal phase 43.8 - 211.0 Postmenopausal <6.0 - 54.7 1st trimester 215.0 - >4300.0 Kim ECLIA methodology Performed By: #### E SHUN #### [facility] [address] [place] [address] Dr. Josse Gant PROGESTERONEon 03-18-2022 Progesterone 0.3 ng/mL Normal [facility] Comment on above: Result Comment: Foll icular phase 0.1 - 0.9 Luteal phase 1.8 - 23.9 Ovulation phase 0.1 - 12.0 First trimester 11.0 - 44.3 Second trimester 25.4 - 83.3 Third trimester 58.7 - 214.0 Postmenopausal 0.0 - 0.1 Performed By: #### T SH #### [facility] [address] [place] [address] Dr. Josse Gant SEX HORMONE-BINDING GLOBULIN on 03-18-2022 Sex Horm Binding Glob, Serum 107.0 nmol/L Normal 17.3-125.0 [facility] Comment on above: Performed By: #### S EXHBG #### [facility] [address] [place] [address] Dr. Josse Gant CBC AUTO DIFFon 03-17-2022 BASO # 0.0 103/ul Normal 0.0-0.1 [facility] Comment on above: Performed By: #### C BC #### [facility] [address] [place] [address] Dr. Josse Gant Basophils/100 WBC (Bld) 0.5 % Normal 0.2-2.0 [facility] Comment on above: Performed By: #### C BC #### [facility] [address] [place] [address] Dr. Josse Gant EO # 0.2 103/ul Normal 0.0-0.7 [facility] Comment on above: Performed By: #### C BC #### [facility] [address] [place] [address] Dr. Josse Gant Eosinophils/100 WBC (Bld) 5.7 % Normal 0.9-7.0 [facility] Comment on above: Performed By: #### C BC #### [facility] [address] [place] [address] Dr. Josse Gant Erythrocyte distribution width (RBC) [Ratio] 12.7 % Normal 11.0-15.0 [facility] Comment on above: Performed By: #### C BC #### [facility] [address] [place] [address] Dr. Josse Gant Hematocrit (Bld) [Volume fraction] 44.7 % Normal 36.0-48.0 [facility] Comment on above: Performed By: #### C BC #### [facility] [address] [place] [address] Dr. Josse Gant Hemoglobin (Bld) [Mass/Vol] 15.0 g/dL Normal 12.0-16.0 [facility] Comment on above: Performed By: #### C BC #### [facility] [address] [place] [address] Dr. Josse Gant IG # 0.00 10e3/ul Normal 0.00-0.03 [facility] Comment on above: Performed By: #### C BC #### [facility] [address] [place] [address] Dr. Josse Gatn IG % 0.0 % Normal 0.0-0.5 [facility] Comment on above: Performed By: #### C BC #### [facility] [address] [place] [address] Dr. Josse Gant LYMPH # 1.1 103/ul Critically low 1.2-3.8 [facility] Comment on above: Performed By: #### C BC #### [facility] [address] [place] [address] Dr. Josse Gant Lymphocytes/100 WBC (Bld) 28.4 % Normal 20.5-60.0 [facility] Comment on above: Performed By: #### C BC #### [facility] [address] [place] [address] Dr. Josse Gant MANUAL DIFF REQ NO Normal [facility] Comment on above: Performed By: #### C BC #### [facility] [address] [place] [address] Dr. Josse Gant MCH (RBC) [Entitic mass] 31.8 pg Normal 26.7-34.0 [facility] Comment on above: Performed By: #### C BC #### [facility] [address] [place] [address] Dr. Josse Gant MCHC (RBC) [Mass/Vol] 33.6 g/dL Normal 29.9-35.2 [facility] Comment on above: Performed By: #### C BC #### [facility] [address] [place] [address] Dr. Josse Gant MCV (RBC) [Entitic vol] 94.9 fL Normal 81.0-99.0 [facility] Comment on above: Performed By: #### C BC #### [facility] [address] [place] [address] Dr. Josse Gant MONO # 0.3 103/ul Normal 0.3-0.8 [facility] Comment on above: Performed By: #### C BC #### [facility] [address] [place] [address] Dr. Josse Gant Monocytes/100 WBC (Bld) 8.8 % Normal 1.7-12.0 [facility] Comment on above: Performed By: #### C BC #### [facility] [address] [place] [address] Dr. Josse Gant NEUT # 2.2 103/ul Normal 1.4-6.5 [facility] Comment on above: Performed By: #### C BC #### [facility] [address] [place] [address] Dr. Josse Gant Neutrophils/100 WBC (Bld) 56.6 % Normal 43.0-75.0 [facility] Comment on above: Performed By: #### C BC #### [facility] [address] [place] [address] Dr. Josse Gant Platelet mean volume (Bld) [Entitic vol] 9.2 fL Critically low 9.5-13.5 [facility] Comment on above: Performed By: #### C BC #### [facility] [address] [place] [address] Dr. Josse Gant PLT 213 103/ul Normal 150-450 [facility] Comment on above: Performed By: #### C BC #### [facility] [address] [place] [address] Dr. Josse Gant RBC 4.71 106/ul Normal 4.20-5.40 [facility] Comment on above: Performed By: #### C BC #### [facility] [address] [place] [address] Dr. Josse Gant WBC 3.9 103/ul Critically low 4.0-11.0 [facility] Comment on above: Performed By: #### C BC #### [facility] [address] [place] [address] Dr. Josse Gant FREE T4on 03-17-2022 Free T4 [Mass/Vol] 0.90 ng/dL Normal 0.76-1.46 [facility] Comment on above: Performed By: #### T SH #### [facility] [address] [place] [address] Dr. Josse Gant TSHon 03-17-2022 TSH 1.332 uIU/mL Normal 0.358-3.74 0 [facility] Comment on above: Performed By: #### T SH #### [facility] [address] [place] [address] Dr. Josse Gant CBC AUTO DIFFon 01-03-2022 BASO # 0.0 103/ul Normal 0.0-0.1 [facility] Comment on above: Performed By: #### C BC #### [facility] [address] [place] [address] Dr. Josse Gant Basophils/100 WBC (Bld) 0.8 % Normal 0.2-2.0 [facility] Comment on above: Performed By: #### C BC #### [facility] [address] [place] [address] Dr. Josse Gant EO # 0.3 103/ul Normal 0.0-0.7 [facility] Comment on above: Performed By: #### C BC #### [facility] [address] [place] [address] Dr. Josse Gant Eosinophils/100 WBC (Bld) 7.3 % Critically high 0.9-7.0 [facility] Comment on above: Performed By: #### C BC #### [facility] [address] [place] [address] Dr. Josse Gant Erythrocyte distribution width (RBC) [Ratio] 12.6 % Normal 11.0-15.0 [facility] Comment on above: Performed By: #### C BC #### [facility] [address] [place] [address] Dr. Josse Gant Hematocrit (Bld) [Volume fraction] 45.3 % Normal 36.0-48.0 [facility] Comment on above: Performed By: #### C BC #### [facility] [address] [place] [address] Dr. Josse Gant Hemoglobin (Bld) [Mass/Vol] 14.7 g/dL Normal 12.0-16.0 [facility] Comment on above: Performed By: #### C BC #### [facility] [address] [place] [address] Dr. Josse Gant IG # 0.01 10e3/ul Normal 0.00-0.03 [facility] Comment on above: Performed By: #### C BC #### [facility] [facility] [address] [place] [address] Dr. Josse Gant IG % 0.3 % Normal 0.0-0.5 [facility] Comment on above: Performed By: #### C BC #### [facility] [address] [place] [address] Dr. Josse Gant LYMPH # 1.5 103/ul Normal 1.2-3.8 [facility] Comment on above: Performed By: #### C BC #### [facility] [address] [place] [address] Dr. Josse Gant Lymphocytes/100 WBC (Bld) 38.8 % Normal 20.5-60.0 [facility] Comment on above: Performed By: #### C BC #### [facility] [address] [place] [address] Dr. Josse Gant MANUAL DIFF REQ NO Normal [facility] Comment on above: Performed By: #### C BC #### [facility] [address] [place] [address] Dr. Josse Gant MCH (RBC) [Entitic mass] 30.8 pg Normal 26.7-34.0 [facility] Comment on above: Performed By: #### C BC #### [facility] [address] [place] [address] Dr. Josse Gant MCHC (RBC) [Mass/Vol] 32.5 g/dL Normal 29.9-35.2 [facility] Comment on above: Performed By: #### C BC #### [facility] [address] [place] [address] Dr. Josse Gant MCV (RBC) [Entitic vol] 95.0 fL Normal 81.0-99.0 [facility] Comment on above: Performed By: #### C BC #### [facility] [address] [place] [address] Dr. Josse Gant MONO # 0.4 103/ul Normal 0.3-0.8 [facility] Comment on above: Performed By: #### C BC #### [facility] [address] [place] [address] Dr. Josse Gant Monocytes/100 WBC (Bld) 9.4 % Normal 1.7-12.0 [facility] Comment on above: Performed By: #### C BC #### [facility] [address] [place] [address] Dr. Josse Gant NEUT # 1.7 103/ul Normal 1.4-6.5 [facility] Comment on above: Performed By: #### C BC #### [facility] [address] [place] [address] Dr. Josse Gant Neutrophils/100 WBC (Bld) 43.4 % Normal 43.0-75.0 [facility] Comment on above: Performed By: #### C BC #### [facility] [address] [place] [address] Dr. Josse Gant Platelet mean volume (Bld) [Entitic vol] 9.6 fL Normal 9.5-13.5 [facility] Comment on above: Performed By: #### C BC #### [facility] [address] [place] [address] Dr. Josse Gant PLT 190 103/ul Normal 150-450 [facility] Comment on above: Performed By: #### C BC #### [facility] [address] [address] [address] Josse Gant RBC 4.77 106/ul Normal 4.20-5.40 [facility] Comment on above: Performed By: #### C BC #### [facility] [address] [place] [address] Dr. Josse Gant WBC 3.8 103/ul Critically low 4.0-11.0 [facility] Comment on above: Performed By: #### C BC #### [facility] [address] [place] [address] Dr. Josse Gant LIPID PROFILEon 01-03-2022 CHOL-HDL RATIO NORM SEE BELOW Normal [facility] Comment on above: Result Comment: 3.3 - 4.4 LOW RISK 4.4 - 7.1 AVERAGE RISK 7.1 - 11.0 MODERATE RISK >11.0 HIGH RISK Performed By: #### L IPID, CMP #### [facility] [address] [place] [address] Dr. Josse Gant Cholesterol [Mass/Vol] 222 mg/dL Critically high <=200 [facility] Comment on above: Performed By: #### L IPID, CMP #### [facility] [address] [place] [address] Dr. Josse Gant Cholesterol in HDL [Mass/Vol] 91 mg/dL Critically high 40-60 [facility] Comment on above: Performed By: #### L IPID, CMP #### [facility] [address] [place] [address] Dr. Josse Gant Cholesterol in LDL [Mass/Vol] 115.4 mg/dL Normal [facility] Comment on above: Performed By: #### L IPID, CMP #### [facility] [address] [place] [address] Dr. Josse Gant Cholesterol.total/Eugenia sterol in HDL [Mass ratio] 2.4 {ratio} Normal [facility] Comment on above: Performed By: #### L IPID, CMP #### [facility] [address] [place] [address] Dr. Josse Gant HDL NORMAL > or = 60 mg/dl - LO W CARDIOVASCULAR RISK <40 mg/dl - HIGH CARDIOVASCULAR RISK Normal [facility] Comment on above: Performed By: #### L IPID, CMP #### [facility] [address] [place] [address] Dr. Josse Gant LDL CALC NORMAL SEE BELOW Normal [facility] Comment on above: Result Comment: <100 mg/dl OPTIMAL 100 - 129 mg/dl NEAR OR ABOVE OPTIMAL 130 - 159 mg/dl BORDERLINE HIGH 160 - 189 mg/dl HIGH >190 mg/dl VERY HIGH Performed By: #### L IPID, CMP #### [facility] [address] [place] [address] Dr. Josse Gant Triglyceride [Mass/Vol] 78 mg/dL Normal <=150 T [facility] Comment on above: Performed By: #### L IPID, CMP #### [facility] [address] [place] [address] Dr. Josse Gant VLDL CALC 15.6 mg/dL Normal [facility] Comment on above: Performed By: #### L IPID, CMP #### [facility] [address] [place] [address] Dr. Josse Gant PROF 14(COMP METB)on 022 Albumin [Mass/Vol] 3.9 g/dL Normal 3.4-5.0 [facility] Comment on above: Performed By: #### L IPID, CMP #### [facility] [address] [place] [address] Dr. Josse Gant Albumin/Globulin [Mass ratio] 1.3 {ratio} Normal [facility] Comment on above: Performed By: #### L IPID, CMP #### [facility] [address] [address] [address] Josse Gant ALP [Catalytic activity/Vol] 53 U/L Normal 46-116 [facility] Comment on above: Performed By: #### L IPID, CMP #### [facility] [address] [place] [address] Dr. Josse Gant ALT [Catalytic activity/Vol] 39 U/L Normal 14-59 [facility] Comment on above: Performed By: #### L IPID, CMP #### [facility] [address] [place] [address] Dr. Josse Gant Anion gap [Moles/Vol] 11.2 mmol/L Normal [facility] Comment on above: Performed By: #### L IPID, CMP #### [facility] [address] [place] [address] Dr. Josse Gant AST [Catalytic activity/Vol] 24 U/L Normal 15-37 [facility] Comment on above: Performed By: #### L IPID, CMP #### [facility] [address] [place] [address] Dr. Josse Gant Bilirubin [Mass/Vol] 0.9 mg/dL Normal 0.2-1.0 [facility] Comment on above: Performed By: #### L IPID, CMP #### [facility] [address] [place] [address] Dr. Josse Gant Calcium [Mass/Vol] 8.8 mg/dL Normal 8.5-10.1 [facility] Comment on above: Performed By: #### L IPID, CMP #### [facility] [address] [place] [address] Dr. Josse Gant Chloride [Moles/Vol] 102 mmol/L Normal 98-107 [facility] Comment on above: Performed By: #### L IPID, CMP #### [facility] [address] [place] [address] Dr. Josse Gant CO2 [Moles/Vol] 32.4 mmol/L Critically high 21.0-32.0 [facility] Comment on above: Performed By: #### L IPID, CMP #### [facility] [address] [address] [address] Josse Gant Creatinine [Mass/Vol] 0.83 mg/dL Normal 0.55-1.02 [facility] Comment on above: Performed By: #### L IPID, CMP #### [facility] [address] [address] [address] Josse Gant EGFR-AF BAHAMIAN >60 Normal >=60 [facility] Comment on above: Performed By: #### L IPID, CMP #### [facility] [address] [address] [address] Josse Gant EGFR-NON AF BAHAMIAN >60 Normal >=60 [facility] Comment on above: Performed By: #### L IPID, CMP #### [facility] [address] [place] [address] Dr. Josse Gant Globulin (S) [Mass/Vol] 3.1 g/dL Normal T [facility] Comment on above: Performed By: #### L IPID, CMP #### [facility] [address] [place] [address] Dr. Josse Gant Glucose [Mass/Vol] 103 mg/dL Normal 74-106 [facility] Comment on above: Performed By: #### L IPID, CMP #### [facility] [address] [place] [address] Dr. Josse Gant Potassium [Moles/Vol] 4.6 mmol/L Normal 3.5-5.1 [facility] Comment on above: Performed By: #### L IPID, CMP #### [facility] [address] [place] [address] Dr. Josse Gant Protein [Mass/Vol] 7.0 g/dL Normal 6.4-8.2 [facility] Comment on above: Performed By: #### L IPID, CMP #### [facility] [address] [place] [address] Dr. Josse Gant Sodium [Moles/Vol] 141 mmol/L Normal 136-145 [facility] Comment on above: Performed By: #### L IPID, CMP #### [facility] [address] [address] [address] Josse Gant Urea nitrogen [Mass/Vol] 22.0 mg/dL Critically high 7.0-18.0 [facility] Comment on above: Performed By: #### L IPID, CMP #### [facility] [address] [address] [address] Josse Gant Urea nitrogen/Creatinine [Mass ratio] 26.5 mg/mg Normal [facility] Comment on above: Performed By: #### L IPID, CMP #### [facility] [id number] Josse Gant MG MAMM SCREEN 3D JHONNY CADon 12-09-2021 MG MAMM SCREEN 3D JHONNY CAD Patient: KORTNEY SALAZAR Exam Date: 12/09/2021 : 1955 Gender:F Ordering : DR SNEHA CESPEDES M.D. Admission #: [id number] Family : Order #: [id number] CLICK HERE TO VIEW EXAM RADIOLOGY REPORT [...] breast cancer at age 73. LOCATION: [facility] BREAST COMPOSITION: Heterogeneously dense,which may obscure [...] Talbert M.D. on 12/09/2021 at 12:57 Normal [facility] CBC Without Differentialon 0 11-20-2020 Erythrocyte distribution width (RBC) [Ratio] 13.7 % Normal 11.9-15.3 [facility] Comment on above: Performed By: #### O UTREACH LIPID, OUTREACH CMP, CBCNOOUTREACH #### [address] Hematocrit (Bld) [Volume fraction] 43.6 % Normal 34.0-46.4 [facility] Comment on above: Performed By: #### O UTREACH LIPID, OUTREACH CMP, CBCNOOUTREACH #### [address] Hemoglobin (Bld) [Mass/Vol] 14.4 g/dL Normal 11.8-15.4 [facility] Comment on above: Performed By: #### O UTREACH LIPID, OUTREACH CMP, CBCNOOUTREACH #### [address] MCH (RBC) [Entitic mass] 31.5 pg Normal 24.7-34.3 [facility] Comment on above: Performed By: #### O UTREACH LIPID, OUTREACH CMP, CBCNOOUTREACH #### [address] MCV (RBC) [Entitic vol] 95.0 fL Normal 80-100 F [facility] Comment on above: Performed By: #### O UTREACH LIPID, OUTREACH CMP, CBCNOOUTREACH #### [address] Mean Corpuscular HGB Conc 33.2 g/dL Normal 32.0-35.0 [facility] Comment on above: Performed By: #### O UTREACH LIPID, OUTREACH CMP, CBCNOOUTREACH #### [address] Platelet mean volume (Bld) [Entitic vol] 9.3 fL Normal 6.3-10.7 [facility] Comment on above: Result Comment: PERF ORMED BY: [place] [id number] PATHOLOGIST LASER ENGRAVER RUIZ WEI M.D. Performed By: #### O UTREACH LIPID, OUTREACH CMP, CBCNOOUTREACH #### [address] Platelets (Bld) [#/Vol] 187 10*3/uL Normal 150-450 [facility] Comment on above: Performed By: #### O UTREACH LIPID, OUTREACH CMP, CBCNOOUTREACH #### [address] RBC (Bld) [#/Vol] 4.58 10*6/uL Normal 3.60-5.00 [facility] Comment on above: Performed By: #### O UTREACH LIPID, OUTREACH CMP, CBCNOOUTREACH #### [address] WBC (Bld) [#/Vol] 3.8 10*3/uL Normal 3.8-11.6 [facility] Comment on above: Performed By: #### O UTREACH LIPID, OUTREACH CMP, CBCNOOUTREACH #### [facility] [address] [place] [address] CMP Outreachon 11-20-2020 Albumin [Mass/Vol] 4.1 g/dL Normal 3.2-5.5 [facility] Comment on above: Performed By: #### O UTREACH LIPID, OUTREACH CMP, CBCNOOUTREACH #### [address] ALP [Catalytic activity/Vol] 37 U/L Normal 32-92 [facility] Comment on above: Performed By: #### O UTREACH LIPID, OUTREACH CMP, CBCNOOUTREACH #### [address] ALT [Catalytic activity/Vol] 27 U/L Normal 10-60 [facility] Comment on above: Performed By: #### O UTREACH LIPID, OUTREACH CMP, CBCNOOUTREACH #### [address] [place] [address] [facility] AST [Catalytic activity/Vol] 30 U/L Normal 10-42 [facility] Comment on above: Performed By: #### O UTREACH LIPID, OUTREACH CMP, CBCNOOUTREACH #### [facility] [address] [id number] [place] Bilirubin [Mass/Vol] 1.4 mg/dL High 0.3-1.2 [facility] Comment on above: Result Comment: Samp les from patients who have taken Naproxen have shown spurious elevation in Total Bilirubin levels. A metabolite of Naproxen, O-desmethylnaproxen, has been shown to interfere with the Jendrassik-Grof method for measuring Total Bilirubin. Performed By: #### O UTREACH LIPID, OUTREACH CMP, CBCNOOUTREACH #### [address] Calcium [Mass/Vol] 9.4 mg/dL Normal 8.2-10.2 [facility] Comment on above: Performed By: #### O UTREACH LIPID, OUTREACH CMP, CBCNOOUTREACH #### [address] [id number] [place] Chloride [Moles/Vol] 101 mmol/L Normal 95-114 [facility] Comment on above: Performed By: #### O UTREACH LIPID, OUTREACH CMP, CBCNOOUTREACH #### [place] [address] [place] CO2 [Moles/Vol] 28.0 mmol/L Normal 22.0-30.0 [facility] Comment on above: Performed By: #### O UTREACH LIPID, OUTREACH CMP, CBCNOOUTREACH #### [facility] [address] [id number] [place] Creatinine [Mass/Vol] 0.85 mg/dL Normal 0.44-1.03 [facility] Comment on above: Performed By: #### O UTREACH LIPID, OUTREACH CMP, CBCNOOUTREACH #### [place] [address] [place] Estimated GFR ( Cristy > 60 Normal [facility] Comment on above: Result Comment: GFR estimated reference range: According to KDOQI guidelines, <60 ml/min/1.73m2 is sufficient to diagnose a patient with chronic kidney disease. Performed By: #### O UTREACH LIPID, OUTREACH CMP, CBCNOOUTREACH #### [facility] [address] [id number] [place] Estimated GFR (Non- Am > 60 Normal [facility] Comment on above: Performed By: #### O UTREACH LIPID, OUTREACH CMP, CBCNOOUTREACH #### [facility] [address] [place] [address] [place] Glucose [Mass/Vol] 92 mg/dL Normal 70-100 [facility] Comment on above: Result Comment: [place] Glucose Reference Range is dependent on time and content of last meal. Glucose of more than 200 mg/dL in a nonstressed, ambulatory subject supports the diagnosis of Diabetes Mellitus. ADA recommended reference range Performed By: #### O UTREACH LIPID, OUTREACH CMP, CBCNOOUTREACH #### [facility] [address] [phone] [place] Potassium [Moles/Vol] 4.1 mmol/L Normal 3.5-5.1 [facility] Comment on above: Performed By: #### O UTREACH LIPID, OUTREACH CMP, CBCNOOUTREACH #### [facility] [address] [phone] [place] Protein [Mass/Vol] 6.6 g/dL Normal 6.1-7.9 [facility] Comment on above: Performed By: #### O UTREACH LIPID, OUTREACH CMP, CBCNOOUTREACH #### [facility] [address] [phone] [place] Sodium [Moles/Vol] 137 mmol/L Normal 136-146 [facility] Comment on above: Performed By: #### O UTREACH LIPID, OUTREACH CMP, CBCNOOUTREACH #### [facility] [address] [phone] [place] Urea nitrogen [Mass/Vol] 25 mg/dL High 9-23 [facility] Comment on above: Performed By: #### O UTREACH LIPID, OUTREACH CMP, CBCNOOUTREACH #### [facility] [address] [phone] [place] Lipid Profile Outreachon Cholesterol [Mass/Vol] 254 mg/dL High 140-200 [facility] Comment on above: Result Comment: Chol less than 200 mg/dl low risk Chol 201-239 mg/dl borderline risk Chol 240 mg/dl and greater high risk Performed By: #### O UTREACH LIPID, OUTREACH CMP, CBCNOOUTREACH #### [facility] [address] Cholesterol in HDL [Mass/Vol] 94 mg/dL High 35-85 [facility] Comment on above: Result Comment: HDL CHOL ATP-III CLASSIFICATION Cardiovascular Risk HDL > or equal to 60 mg/dL LOW HDL < 40 mg/dL HIGH Performed By: #### O UTREACH LIPID, OUTREACH CMP, CBCNOOUTREACH #### [facility] [address] Cholesterol.total/Eugenia sterol in HDL [Mass ratio] 2.7 {ratio} Normal <5.0 [facility] Comment on above: Result Comment: PERF ORMED BY: [place] [address] PATHOLOGIST LASER ENGRAVER RUIZ WEI M.D. Performed By: #### O UTREACH LIPID, OUTREACH CMP, CBCNOOUTREACH #### [facility] [address] [place] [address] LDL Cholesterol,Calculated 150 mg/dL High 0-100 [facility] Comment on above: Result Comment: LDL ATP III CLASSIFICATION LDL less than 100 mg/dL Optimal LDL 100-129 mg/dL Near or above optimal LDL 130-159 mg/dL Borderline high LDL 160-189 mg/dL High LDL greater than 189 mg/dL Very high Performed By: #### O UTREACH LIPID, OUTREACH CMP, CBCNOOUTREACH #### [facility] [address] [id number] [place] Triglyceride w/Reflex 48 mg/dL Normal 35-149 [facility] Comment on above: Result Comment: TRIG ATP III CLASSIFICATION TRIG less than 150 mg/dL Normal TRIG 150-199 mg/dL Borderline high TRIG 200-500 mg/dL High TRIG greater than 500 mg/dL Very high Standard traceable to the Center for Disease Conrtrol and Prevention (CDC) test method. Performed By: #### O UTREACH LIPID, OUTREACH CMP, CBCNOOUTREACH #### [facility] [address] [place] [address] [place] VLDL CHOLESTEROL 9 mg/dL Normal [facility] Comment on above: Performed By: #### O UTREA LIPID, OUTREACH CMP, CBCNOOUTREACH #### [facility] [address] [place] [address] [place] Vital Signs Date Time Vital Sign Value Performing Clinician Facility 03-04-2024 08:28-0400 Body height 170.18 cm [facility] 03-04-2024 08:28-0400 Body mass index (BMI) [Ratio] 18.6 kg/m2 [facility] 03-04-2024 08:28-0400 Body weight 53.97 kg [facility] 03-04-2024 08:28-0400 Diastolic blood pressure 78 mm[Hg] [facility] 03-04-2024 08:28-0400 Heart rate 66 /min [facility] 03-04-2024 08:28-0400 Systolic blood pressure 120 mm[Hg] [facility] 10-10-2023 08:43-0400 Body height 170.18 cm [facility] 10-10-2023 08:43-0400 Body mass index (BMI) [Ratio] 18 kg/m2 [facility] 10-10-2023 08:43-0400 Body temperature 98.2 [degF] [facility] 10-10-2023 08:43-0400 Body weight 52.16 kg [facility] 10-10-2023 08:43-0400 Diastolic blood pressure 80 mm[Hg] [facility] 10-10-2023 08:43-0400 Heart rate 80 /min [facility] 10-10-2023 08:43-0400 Systolic blood pressure 127 mm[Hg] [facility] 10-06-2023 09:54-0400 Body height 170.18 cm [facility] 10-06-2023 09:54-0400 Body mass index (BMI) [Ratio] 18.2 kg/m2 [facility] 10-06-2023 09:54-0400 Body temperature 98.3 [degF] [facility] 10-06-2023 09:54-0400 Body weight 52.78 kg [facility] 10-06-2023 09:54-0400 Diastolic blood pressure 81 mm[Hg] [facility] 10-06-2023 09:54-0400 Heart rate 83 /min [facility] 10-06-2023 09:54-0400 Respiratory rate 16 /min [facility] 10-06-2023 09:54-0400 SaO2% (BldA) [Mass fraction] 96 % [facility] 10-06-2023 09:54-0400 Systolic blood pressure 130 mm[Hg] [facility] 07-25-2023 09:08-0400 Body height 170.18 cm [facility] 07-25-2023 09:08-0400 Body mass index (BMI) [Ratio] 18.3 kg/m2 [facility] 07-25-2023 09:08-0400 Body weight 53.12 kg [facility] 07-25-2023 09:08-0400 Diastolic blood pressure 84 mm[Hg] [facility] 07-25-2023 09:08-0400 Heart rate 69 /min [facility] 07-25-2023 09:08-0400 Systolic blood pressure 132 mm[Hg] [facility] 01-02-2023 10:00-0400 Body height 170.18 cm Sneha Cespedes Other [facility] Other 01-02-2023 10:00-0400 Body mass index (BMI) [Ratio] 18.17 kg/m2 Sneha Cespedes Other [facility] Other 01-02-2023 10:00-0400 Body weight 52.62 kg Sneha Cespedes Other [facility] Other 01-02-2023 10:00-0400 Diastolic blood pressure 78 mm[Hg] Sneha Cespedes Other [facility] Other 01-02-2023 10:00-0400 Systolic blood pressure 127 mm[Hg] Sneha Cespedes Other [facility] Other Encounters Encounter Date Encounter Type Care Provider Facility Start: 11-17-2024 End: 11-17-2024 ambulatory Elizabeth Cheng MD Facility:[facility] Start: 08-27-2024 End: 08-27-2024 ambulatory [facility] Work Phone: Start: 08-27-2024 End: 08-27-2024 Patient encounter procedure [facility] Work Phone: Start: 06-23-2024 Non-patient / Non-visit [facility] Physician [facility] [email or web address] Work Phone: Start: 03-04-2024 End: 03-04-2024 ambulatory [facility] Work Phone: Start: 03-04-2024 End: 03-04-2024 Patient encounter procedure [facility] Phys[facility] Work Phone: Start: 02-28-2024 End: 02-28-2024 Bamboo flowsheet Sophia A Felter PAID SEARCH ANALYST-TRACTOR TRAILER TRUCK DRIVER Work Phone: [facility] Start: 02-28-2024 End: 02-28-2024 Bamboo flowsheet Sophia A Felter PAID SEARCH ANALYST-TRACTOR TRAILER TRUCK DRIVER Work Phone: [facility] Start: 02-28-2024 End: 02-28-2024 ambulatory SOPHIA A FELTER Not Available Start: 02-28-2024 End: 02-28-2024 Office outpatient visit 15 minutes Sophia A Felter PAID SEARCH ANALYST-TRACTOR TRAILER TRUCK DRIVER Work Phone: [facility] Comment on above: Melanocytic nevus of trunk; Seborrheic keratosis; Inflamed seborrheic keratosis; Lentigines; Capillary angioma; Sebaceous hyperplasia Start: 01-01-2024 Non-patient / Non-visit [facility] Physician [facility] [employer] Work Phone: Start: 10-10-2023 End: 10-10-2023 ambulatory [facility] Work Phone: Start: 10-10-2023 End: 10-10-2023 Patient encounter procedure [facility] Work Phone: Start: 10-06-2023 End: 10-06-2023 ambulatory [facility] Work Phone: Start: 10-06-2023 End: 10-06-2023 Patient encounter procedure [facility] Work Phone: Start: 07-25-2023 End: 07-25-2023 ambulatory [facility] Work Phone: Start: 07-25-2023 End: 07-25-2023 Patient encounter procedure [facility] Work Phone: Start: 06-06-2023 End: 06-06-2023 ambulatory Sneha Cespedes Other [facility] Other Start: 06-06-2023 Telephone encounter Sneha Cespedes [facility] Start: 06-05-2023 ambulatory Facility:[facility] Start: 06-04-2023 End: 06-04-2023 ambulatory Sneha Cespedes Other [facility] Other Start: 06-04-2023 Telephone encounter Sneha Cespedes [facility] Start: 01-12-2023 End: 01-12-2023 ambulatory Sneha Cespedes Other [facility] Other Start: 01-12-2023 Encounter by compute r link Sneha Cespedes [facility] Start: 01-02-2023 End: 01-02-2023 ambulatory Sneha Cespedes Other [facility] Other Start: 01-02-2023 Patient encounter procedure Sneha Cespedes [facility] Start: 12-28-2022 End: 12-28-2022 ambulatory Sneha Cespedes Other [facility] Other Start: 12-28-2022 Telephone encounter Sneha Cespedes [facility] Start: 08-24-2022 End: 08-25-2022 ambulatory GURINDER HENNING . Facility:[facility] Start: 03-17-2022 End: 03-18-[address] SNEHA CESPEDES Facility:[facility] Start: 02-07-2022 End: 02-08-[address] JAZZMINE STOCKTON . Facility:[facility] Start: 01-03-2022 End: 01-04-[address] SNEHA CESPEDES Facility:[facility] Start: 12-09-2021 End: 12-10-[address] SNEHA CESPEDES Facility:[facility]1 Procedures Date Procedure Procedure Detail Performing Clinician Start: 02-28-2024 CRYOTHERAPY SKIN LESION Sophia Mensah APRN-TRACTOR TRAILER TRUCK DRIVER Work Phone: Start: 01-01-2024 Cortisol total Comment [...] DERM [address] [place] [address] Sophia Mensah APRN-TRACTOR TRAILER TRUCK DRIVER [address] [place] [address] [facility] Start: 01-06-2024 Influenza vaccination Influenza Vacc ine (#1) [facility] Start: 1993 Screening for malign ant neoplasm of breast Mammogram [facility] Start: 1955 Screening for malign ant neoplasm of colon [facility] Immunizations Immunization Date Immunization Notes Care Provider Bradley lara 07-20-2021 Prevnar 20 Sneha Cespedes Other [facility] 03-18-2019 influenza virus vaccine, unspecified formulation Sophia Mensah PAID SEARCH ANALYST-TRACTOR TRAILER TRUCK DRIVER Work Phone: [facility] Healthcare Payers Date Payer Category Payer Unknown 2018 Medicare [id number] 2018 Other GENERIC OTHER Ak mber [id number] 2016 Unknown [id number] 1959 Medicare [id number] 1959 Unknown [id number] 1953 Unknown [id number] 1953 Unknown [id number] 1953 Unknown [id number] 1953 Unknown [id number] 1953 Unknown [id number] 1953 Unknown [id number] 1953 Unknown [id number] 1953 Unknown [id number] Self-pay Self Pay [id number] Social History Date Type Detail Facility Unknown if ever smoked [facility] Other Start: 02-27-2023 End: 02-28-2024 Sex Assigned At [employer] [facility] Other Start: 1955 Sex Assigned At Female [facility] Start: 12-05-2022 End: 10-06-2023 Tobacco smoking status NHIS Never smoked tobacco (finding) [facility] Start: 12-05-2022 Tobacco use and exposure Smokeless tobacco non-user [facility] Start: 02-27-2023 End: 02-28-2024 History of Social function [facility] Start: 1955 Sex assigned at Not on file [facility] Start: 02-28-2024 Alcoholic beverage intake Current drinker of alcohol (finding) [facility] Start: 08-27-2024 Sex Female (finding) [facility] NEGATED: Highlighted rowStart: NINF History of tobacco use Passive smoker [facility] Clinical Notes 02-07-2022 to 02-28-2024 Sophia Mensah, PAID SEARCH ANALYST-TRACTOR TRAILER TRUCK DRIVER - 02/28/2024 9:05 AM EDT Note Date [...] limited to risks of scarring, darker or instructor warper pigmentary changes, recurrence, incomplete removal and infection. 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 [facility] Other 04-20-2023 NoteCONSULTATION PROCEDURE DATE: 08/24/2022 TO: [...] marked reduction in pain symptoms post procedurally.[id number] Note CONSULTATION PROCEDURE DATE: 02/07/2022 PREOPERATIVE DIAGNOSIS: [...] will be followed up in the office.[facility] 02-07-2022 NoteCONSULTATION CONSULTATION DATE: 02/07/2022 CHIEF [...] like to proceed. CC: Sneha Cespedes M.D.[facility] Other Evaluation note* Diagnosis Onset Date Resolution Status Essential (primary) hypertension acute [facility] Work Phone: Evaluation note* Diagnosis Onset Date Resolution Status Essential (primary) hypertension acute Viral URI with cough acute [facility] Work Phone: Evaluation note* Diagnosis Melanocytic nevus of trunk Benign neoplasm of skin of trunk, except scrotum Seborrheic keratosis Inflamed seborrheic keratosis Lentigines Capillary angioma Nevus, non-neoplastic Sebaceous hyperplasia documented in this encounter [facility] Diagnosis Onset Date Resolution Status Essential (primary) hypertension acute Hormonal disorder acute Leukopenia acute [facility] Work Phone: Evaluation noteNo assessment information available [facility] Work Phone: History general Narrative - Reported* [...] lateral epicondylitis Hospitalization History see surgical hx [facility] Other Summary Purpose Family History No Family [...] Date/ Time Advance Directives No July 24 8:58am Reason for Referral Reason colon cancer screeni ng Diagnosis 1 Screening for colon cancer (Z12.11) Referral Organization [facility] Referring Provider First Name Sneha Referring Provider Last Name Coy Referring Provider Specialty Family [facility] Referred Organization [facility] Referred Provider Jake Martinez Referred Address [address] [place] [phone] Referred Provider Specialty Surgery Referral Priority Routine [...] Visit Essential (primary) hypertension Hormonal disorder Leukopenia Chief Complaint Admit Date UA:Frequency/Pressure August 27, 2024 1 1:20am Additional Source Comments INFORMATION SOURCE (unrecogn ized section and content) DATE CREATED AUTHOR 05/29/2021 [facility] DATE CREATED AUTHOR AUTHOR'S ORGANIZ ATION 08/29/2022 [facility] DATE CREATED AUTHOR AUTHOR'S ORGANIZ ATION 02/29/2024 [facility] DATE CREATED AUTHOR AUTHOR'S ORGANIZ ATION 06/03/2024 [facility] DATE CREATED AUTHOR AUTHOR'S ORGANIZ ATION 11/24/2024 [facility] REASON FOR VISIT (unrecogniz ed [...] Status: Inactive Member Role Status Dates Sneha Csepedes MD Primary Care Provider Active Start: October 06, 2023 End: October 06, 2023 Ebonie Monreal APRN Attending Provider Active Start: October 06, 2023 End: October 06, 2023 Team Status: Inactive Member Role Status Dates Sneha Cespedes MD Primary Care Provide r, Attending Provider Active Start: October 10, 2023 End: October 10, 2023 [employer] Relationship Specialty Start Date End Date Sneha Cespedes MD [facility] [place] [address] PCP - General Family Medicine 01/18/23 [employer] Relationship Specialty Start Date End Date Sneha Cespedes MD [address] [place] [address] PCP - General Family Medicine 01/18/23 Team Status: Active Member Role Status Dates Sneha Cespedes MD Primary Care Provide r, Attending Provider Active Start: June 23, 2024 Team Status: Inactive Member Role Status Dates Sneha Cespedes MD Primary Care Provide r, Attending Provider Active Start: August 27, 2024 End: August 27, 2024 Goals (unrecognized section and content) Goals [...] BE BASED ON THE PRIMARY CLINICAL RECORDS. [facility]. provides no warranty or guarantee of the accuracy or completeness of information in this document.
[2025-01-01 07:43] LABS: Alanine Aminotransferase 33 U/L (14-59); Albumin Globulin Ratio 1.1; Albumin Level 3.6 g/dL (3.4-5.0); Alkaline Phosphatase 50 U/L (46-116); Anion Gap 8.7; Aspartate Amino Transferase 23 U/L (15-37); Blood Urea Nitrogen 23.0 mg/dL (7.0-18.0); Calcium 8.7 mg/dL (8.5-10.1); Carbon Dioxide 32.8 mmol/L (21.0-32.0); Chloride 103 mmol/L (98-107); Cholesterol 195 mg/dL (<=200); Estimated GFR (African America >60 (>=60 mL/min/1.73m^2); Estimated GFR (Non-African Ame >60 (>=60 mL/min/1.73m^2); Globulin 3.3 g/dL; Glucose 96 mg/dL (74-106); HDL Cholesterol 87 mg/dL (40-60); Potassium 4.5 mmol/L (3.5-5.1); Sodium 140 mmol/L (136-145); Total Protein 6.9 g/dL (6.4-8.2); Triglycerides 55 mg/dL (<=150); VLDL CHOLESTEROL 11.0 mg/dL
--- NOTE | 2025-01-01 08:47 | MM_ITS ---
Patient Name: DARIEN HOWARD MR#: [id number] : 1955 Exam Date: 01/01/2025 Ordering Doctor: DR SIMON CESPEDES M.D. RADIOLOGY REPORT PROCEDURE: MM TOMOSYNTHESIS SCREENING BI COMPARISON: MM TOMOSYNTHESIS SCREENING BI, 01/01/2024. MM TOMOSYNTHESIS SCREENING BI, 12/28/2022. MG MAMM SCREEN 3D JHONNY CAD, 12/09/2021. MG MAMM JHONNY SCRN W CAD DIG, 06/10/2013. INDICATIONS: Screening Calculator Name NCI Breast Cancer Risk Assessment Tool 5 Year Breast Cancer Risk 1.30% Lifetime Breast Cancer Risk 3.50% Personal Breast Cancer No Personal Ovarian Cancer No Treatments None Family Cancers Aunt-maternal with breast cancer at age ~55; Aunt-maternal with breast cancer at age ~75. LOCATION: [facility] BREAST COMPOSITION: FINDINGS: RIGHT BREAST: No significant suspicious finding. LEFT BREAST: No significant suspicious finding. RECOMMENDATIONS: Dictated by: Kiko Hernandes DO on 01/01/2025 at 12:51 Approved by: Kiko Hernandes DO on 01/01/2025 at 12:53
== END 2025-01-01 06:38 | disposition home or self-care (01) ==
LOC: MAMMO 06:37
PROVIDERS: PCP Family Medicine; Visit Provider Family Medicine
DX: Z12.31 Encounter for screening mammogram for malignant neoplasm of breast (principal); E34.9 Endocrine disorder, unspecified; D72.819 Decreased white blood cell count, unspecified; I10 Essential (primary) hypertension; Z80.3 Family history of malignant neoplasm of breast
CPT/HCPCS: 36415; 77063; 77067; 80053; 80061; 82533; 82627; 82670; 84144